=== PATIENT | female | born 1970 | race Caucasian/White ===

== ENCOUNTER 2022-09-18 12:53 | Outpatient (CLI) | payer MEDICAID, SELFPAY ==
[2022-09-18 10:15] LABS: Abs Immature Grans 0.01 10^3/uL (0.0-0.06); Absolute Basophil Count 0.03 10^3/uL (0.0-0.2); Absolute Eosinophil Count 0.19 10^3/uL (0.0-0.7); Absolute Lymphocyte Count 1.83 10^3/uL (1.2-3.4); Absolute Monocyte Count 0.47 10^3/uL (0.1-0.8); Absolute Neutrophil Count 2.97 10^3/uL (1.2-6.7); Basophils % 0.5; Eosinophils % 3.5; HCT 37.7 % (36.0-46.0); HGB 11.7 g/dL (11.2-15.7); Immature Grans % 0.2; Lymphocytes % 33.3; MCH 26.6 pg (27.0-33.0); MCV 86 fL (80-95); Monocytes % 8.5; Platelet Count 331 10^3/uL (130-400); RDW 15.9 % (11.7-14.6); RDW-SD 50.1 fL
[2022-09-18 11:00] LABS: ALT 29 U/L (14-59); AST 17 U/L (15-37); Alkaline Phosphatase 79 U/L (46-116); Anion Gap 11.9 mmol/L (3-11); BUN 12 mg/dL (7-18); Bilirubin, Total 0.3 mg/dL (0.2-1.0); CO2 23.1 mmol/L (21.0-32.0); CREATININE 0.8 mg/dL (0.55-1.02); Calcium 9.7 mg/dL (8.5-10.1); Chloride 105 mmol/L (98-107); Glucose 108 mg/dL (74-106); Magnesium 1.9 mg/dL (1.8-2.4); Sodium 140 mmol/L (136-145); Total Protein 7.6 g/dL (6.4-8.2)
== END 2022-09-18 12:54 | disposition home or self-care (01) ==
LOC: LBO 12:57
PROVIDERS: PCP Student in an Organized Health Care Education/Training Program; Visit Provider Student in an Organized Health Care Education/Training Program
DX: N28.9 Disorder of kidney and ureter, unspecified (principal); E87.8 Other disorders of electrolyte and fluid balance, not elsewhere classified; R03.0 Elevated blood-pressure reading, without diagnosis of hypertension; Z86.2 Personal history of diseases of the blood and blood-forming organs and certain disorders involving the immune mechanism; Z86.711 Personal history of pulmonary embolism; Z79.899 Other long term (current) drug therapy
CPT/HCPCS: 36415; 80053; 83735; 85025

== ENCOUNTER 2022-10-14 02:18 | Outpatient (CLI) | payer MEDICAID, SELFPAY ==
--- NOTE | 2022-10-14 15:18 | DI.US_ITS ---
APPROVED REPORT EXAM: Comprehensive 2D, Doppler, and color-flow Echocardiogram Patient Location: Out-Patient Teacher Hearing Impaired: Krystyna Do RDCS (AE) Indications: Evaluate for improvement post strain, PE, CAD Other Information Study Quality: Adequate Conclusion Normal left ventricular wall thickness and chamber size. Estimated ejection fraction is 60%. Wall m otion is normal Normal right ventricular size and systolic function Both atria are normal in size There is no structural or hemodynamically significant valvular disease Estimated right ventricular systolic pressure is 18 mmHg Wall motion Left Ventricle The left ventricle is normal size. The left ventricular systolic function is normal. The left ventric ular ejection fraction is within the normal range. There is normal left ventricular wall thickness. T here is normal LV segmental wall motion. There is no ventricular septal defect visualized. LVEF is 6 0%. Right Ventricle The right ventricle is normal size. The right ventricular systolic function is normal. The RVSP is 18 .3 mmHg. Atria The left atrium size is normal. The right atrium size is normal. The interatrial septum is intact wit h no evidence for an atrial septal defect. Aortic Valve The aortic valve is normal in structure. Aortic valve is trileaflet. There is no aortic valvular sten osis. No aortic regurgitation is present. Mitral Valve The mitral valve is normal in structure. No evidence of mitral valve stenosis. Trace mitral regurgita tion. Tricuspid Valve The tricuspid valve is normal in structure. There is no tricuspid valve stenosis. Trace to mild tricu spid regurgitation. Pulmonic Valve The pulmonary valve is normal in structure. There is no pulmonic valvular stenosis. There is no pulmo carmen valvular regurgitation. Great Vessels The aortic root is normal in size. The ascending aorta is normal in size. Aortic arch is normal in ca liber. IVC is normal in size and collapses >50% with inspiration. Pericardium There is no pericardial effusion. 2D Dimensions IVSD d PLAX 0.97 cm F: 0.6-1.0 LV Vol A2C d MOD 108.9 mL LVPW d PLAX 0.90 cm F: 0.6 - 1.0 LV Vol A4C d MOD 110.9 mL LVID d PLAX 4.94 cm F: 3.8 - 5.2 LA vol/ BSA A2C s A-L 14.3 mL/m2 LVDs 3.10 cm F: 2.2 - 3.5 LA vol/ BSA A4C s A-L 29.7 mL/m2 Ao Root d 2.84 cm F: 2.7 - 3.3 LA Vol/ BSA Biplane s A-L 23.4 mL/m2 Ao Asc Diam d 3.01 cm F: 2.3 - 3.1 LA Area A4C s MOD 20.47 cm2 LV EF Teichholz 66.9 % LA Area A2C s MOD 12.52 cm2 LVEF (Doyle's) 58.14 % F: 54 - 74 LV EF A4C MOD 59.1 % LV Volume 83.04 mL F: 46 - 106 LV EF A2C MOD 60.0 % LV Volume Index 41.10 mL/m2 F: 29 - 61 LV EF Biplane MOD 58.1 % LV Vol Biplane MOD 111.0 mL SV 64.55 mL FS 37.15 % SV Index 32.01 mL/m2 M-Mode TAPSE 2.32 cm (M/F) >1.7 LV Diastology MV E' medial 0.099 (>0.07 m/s) E/A Ratio 1.2 LV E/e MED 7.75 (<14) MV E Vmax 0.77 (0.4-1.3 m/s) MV E' lateral 0.110 (>0.1 m/s) MV A Vmax 0.65 (0.4-1.3 m/s) LV E/e LAT 6.90 (<14) MV E/A Ratio 1.13 MV E/E' medial 7.76 MV E/E' lateral 6.93 Aortic Valve LVOT Area 2.86 cm2 AoV Area Vmax 2.31 cm2 LVOT Vmax 0.88 m/s AoV Area/ BSA (Vmax) 1.15 cm2/m2 LVOT Mean Carlos. 0.58 m/s JAN Mean Carlos. 2.22 cm2 LVOT Peak Grad 3.1 mmHg JAN Mean Carlos. Index 1.10 cm2/m2 LVOT Mean Grad 1.6 mmHg LVOT VTI 0.194 m LVOT Diam s 1.90 cm AoV Vmax 1.09 m/s Velocity Ratio 0.81 AoV Mean Carlos. 0.75 m/s AoV Peak Grad 4.7 mmHg LVOT SV 55.46 mL AoV Mean Grad 2.5 mmHg AoV VTI 0.226 m AoV Area VTI 2.45 cm2 AoV Area/ BSA (VTI) 1.21 cm/m2 Mitral Valve MV DT 209 (160-240 msec) MV PHT 60 msec MV Area PHT 3.64 cm2 MV VTI 0.248 m MV Area VTI 2.23 (4.0-6.0 cm2) Pulmonary Valve PV Vmax 0.76 (0.5-1.5 m/s) RVOT Peak Gr. 1.52 mmHg PV Peak Grad 2.3 mmHg RVOT Mean Gr. 0.75 mmHg PV Mean Grad 1.3 mmHg RVOT VTI 0.141 m PV VTI 0.193 m RVOT Vmax 0.62 m/s Tricuspid Valve TR Peak Grad 15.2 mmHg TR Vmax 1.96 m/s RA Pressure 3.00 mmHg RVSP (TR) 18.3 mmHg
== END 2022-10-14 02:38 ==
LOC: DI 02:18
PROVIDERS: PCP Student in an Organized Health Care Education/Training Program; Visit Provider Student in an Organized Health Care Education/Training Program
DX: I25.10 Atherosclerotic heart disease of native coronary artery without angina pectoris (principal); I51.89 Other ill-defined heart diseases; Z86.2 Personal history of diseases of the blood and blood-forming organs and certain disorders involving the immune mechanism; Z86.711 Personal history of pulmonary embolism
CPT/HCPCS: 93306

== ENCOUNTER 2023-04-30 18:19 | Emergency (ER) | payer BC, MEDICAID, SELFPAY ==
[2023-04-30] VITALS (57 sets, daily range): BP systolic 94–153; BP diastolic 24–111; PULSE 74–90; RESP 16–18; TEMP 36.1–36.7; O2SAT 95–100
[2023-04-30 19:42] LABS: Abs Immature Grans 0.04 10^3/uL (0.0-0.06); Absolute Basophil Count 0.04 10^3/uL (0.0-0.2); Absolute Eosinophil Count 0.14 10^3/uL (0.0-0.7); Absolute Lymphocyte Count 2.11 10^3/uL (1.2-3.4); Absolute Monocyte Count 0.51 10^3/uL (0.1-0.8); Absolute Neutrophil Count 5.34 10^3/uL (1.2-6.7); Basophils % 0.5; Eosinophils % 1.7; HCT 22.3 % (36.0-46.0); Immature Grans % 0.5; Lymphocytes % 25.8; MCH 20.1 pg (27.0-33.0); MCHC 26.5 % (32.0-36.0); MCV 76 fL (80-95); MPV 9.8 fL (8.0-11.0); Monocytes % 6.2; Neutrophils % 65.3; Platelet Count 638 10^3/uL (130-400); RBC 2.94 10^6/uL (3.93-5.22); RDW 24.7 % (11.7-14.6); RDW-SD 65.3 fL; WBC 8.18 10^3/uL (4.4-10.8)
[2023-04-30 19:51] LABS: HGB 5.9 g/dL (11.2-15.7)
[2023-04-30 19:55] LABS: Anisocytosis 2+
[2023-04-30 19:56] LABS: ALT 14 U/L (14-59); AST 8 U/L (15-37); Albumin 3.7 g/dL (3.4-5.0); Alkaline Phosphatase 83 U/L (46-116); Anion Gap 13.2 mmol/L (3-11); BUN 7 mg/dL (7-18); Bilirubin, Total 0.3 mg/dL (0.2-1.0); CO2 22.8 mmol/L (21.0-32.0); CREATININE 0.9 mg/dL (0.55-1.02); Calcium 9.2 mg/dL (8.5-10.1); Chloride 103 mmol/L (98-107); Estimated GFR 76.44 (mL/min/1.73m2); Glucose 97 mg/dL (74-106); Hypochromasia 3+; Microcytosis 3+; Potassium 3.6 mmol/L (3.5-5.1); Sodium 139 mmol/L (136-145); Total Protein 7.3 g/dL (6.4-8.2)
[2023-04-30] MEDS: Acetaminophen 325 MG TAB 650 MG PO (20:48)
[2023-04-30] MEDS: Ondansetron 4 MG/2 ML VIAL IVP (20:52)
[2023-04-30] MEDS: Normal Saline 1,000 ML 1000 ML IV (20:53)
--- NOTE | 2023-04-30 22:09 | SCONE_ITS ---
Date of service: 04/30/23 Time of Service: 22:09 Assessment and Plan Assessment and plan (1) Acute blood loss anemia: Status: Acute Assessment and plan: I agree with the transfusion of packed red blood products in an effort to improve her fatigue and dyspnea. Based on the exam, the severity of the h emoglobin, and the stability of her vital signs, I suspect this anemia is quite chronic in nature. Assuming she tolerates the transfusion fine, we can make arrangements for more urgent colonoscopy this week. Alternatively, if she continues to have signs of symptomatic anemia and ongoing blood loss, then we could reconsider admission to the hospital, holding her apixaban, bridging with heparinoid product and prepping for colonoscopy in a more urgent fashion. I will have my office make arrangements to expedite her colonoscopy if she is discharged home today. History of Present Illness History of Present Illness Chief Complaint: Hematochezia Narrative: Rahul is 53 years old, and she comes to the emergency department today with anemia. This was detected because of increasing fatigue, and exertional dyspnea. This is also in the setting of hematochezia. In fact, she has been seen in our office in an effort to schedule outpatient colonoscopy. Her past medical history is complicated by massive pulmonary embolism requiring pulmonary artery embolectomy. The cause of her thrombosis is uncertain. She has been treated with therapeutic anticoagulation using apixaban, which she took as most recently as this morning. Although her pulmonary embolism occurred while she was living in [place], she is currently seen in consultation by the [facility] team. She tells me she recently underwent a CAT scan that demonstrated no evidence of any deep vein thrombosis or pulmonary embolism. With regards to her exertional dyspnea, she tells me has been most notable over the past week or so. She has been having difficulty maintaining breathfullness even while doing tasks as simple as grocery shopping. PFSH All Active Problems Acute blood loss anemia (Acute) Hx pulmonary embolism (Chronic) post embolectomy (possible saddle per pt description) Hx of iron deficiency anemia (Acute) History of DVT (deep vein thrombosis) (Acute) Anticoagulated (Acute) Family History Maternal Grandfather Diabetes Maternal Grandmother Diabetes Mother Diabetes Social History Smoking/Tobacco Use Status: Never Smoking risk assessment performed?: Yes Alcohol Intake: never Drug use: Never Substance use type: does not use Household members: family Housing: apartment Number of Children: 2 number of grandchildren: 1 Communication Needs: Corrective Lenses Education Level: high school current occupation: [employer] in [place] What is your relationship status?: How often do you get together with friends or relatives?: three or more times per week Panel score (0-1 are the most socially isolated patients): 1 What type of physical activity do you participate in: none Working smoke detector in home: Yes Fire extinguisher in home: Yes Carbon monox detector in home: Yes Do you feel safe at home: Yes Do you feel safe in your relationship?: Yes Exam GI Other: Her abdomen is soft, nontender nondistended. She has external hemorrhoids with no stigmata of recent bleeding at least externally. Internal examination is limited by patient comfort. There is no bright red blood per anus at this time. Results Last Vital Signs Temp 98.1 F 04/30/23 20:53 Pulse 90 04/30/23 20:53 Resp 18 04/30/23 20:53 BP 122/65 04/30/23 20:53 Pulse Ox 98 04/30/23 20:53 Labs 04/30/23 19:30 04/30/23 19:30 Labs: Laboratory Results - last 24 hr 04/30/23 04/30/23 04/30/23 19:30 19:30 19:30 WBC 8.18 RBC 2.94 L Hgb 5.9 L* Hct 22.3 L MCV 76 L MCH 20.1 L MCHC 26.5 L RDW 24.7 H Plt Count 638 H MPV 9.8 Immature Gran % 0.5 Neutrophils % 65.3 Lymphocytes % 25.8 Monocytes % 6.2 Eosinophils % 1.7 Basophils % 0.5 Nucleated RBC % 0.0 Absolute Neutrophils 5.34 Absolute Lymphocytes 2.11 Absolute Monocytes 0.51 Absolute Eosinophils 0.14 Absolute Basophils 0.04 RBC Morphology See Below Hypochromasia 3+ Anisocytosis 2+ Microcytosis 3+ Sodium 139 Potassium 3.6 Chloride 103 Carbon Dioxide 22.8 Anion Gap 13.2 H BUN 7 Creatinine 0.9 Est GFR (CKD-EPI 2020) 76.44 Glucose 97 Calcium 9.2 Total Bilirubin 0.3 AST 8 L ALT 14 Alkaline Phosphatase 83 Total Protein 7.3 Albumin 3.7 Patient ABO/Rh O Positive Antibody Screen NEGATIVE Crossmatch See Detail
--- NOTE | 2023-04-30 22:10 | W.ED.GENAD ---
Discharge Plan Disposition Patient Disposition: Home Condition: Stable Discharge Details Clinical Impression: Acute blood loss anemia Primary Care Provider: Rachel Greene ED Provider: Mady Molina Home Meds and New Rx's Prescriptions: Continued bisacodyl [Dulcolax (bisacodyl)] 5 mg tablet,delayed release (DR/EC) 5 mg PO ONCE Qty: 4 0RF Rx Instructions: Take per colonoscopy instructions provided by ordering providers office polyethylene glycol 3350 17 gram/dose powder 17 g PO ONCE Qty: 238 0RF Rx Instructions: Take per colonoscopy instructions provided by ordering providers office blood builder iron 2 tab PO BID OTC FLuid Pill 1 tab PO DAILY PRN (Reason: Edema) fexofenadine [Amarilis Allergy] 60 mg tablet 60 mg PO Q12H PRN montelukast [Singulair] 10 mg tablet 10 mg PO DAILY Qty: 90 3RF albuterol sulfate [Ventolin HFA] 90 mcg/actuation HFA aerosol inhaler 2 puff inhalation Q6H PRN (Reason: shortness of breath or wheezing) Qty: 8.5 4RF famotidine 20 mg tablet 20 mg PO BID Qty: 60 3RF Rx Instructions: Trial H2 Blkr for gastritis Held Eliquis 5 mg tablet 5 mg PO BID Qty: 180 4RF Hold Instructions: discuss with outpatient team Discharge Instructions Instructions: Rectal Bleeding (ED), Anemia (ED) Additional Instructions: push fluids to stay well hydrated hold eliquis until discussed at your follow up appointment Referrals: Anuel Keita MD [ [facility] STAFF PHYSICIAN] - Discharge Data Discharge Date/Time-TO BE ENTERED AT DEPARTURE: 05/01/23 00:19 Medical Decision Making This is a 53-year-old woman with history of hemorrhoids fully anticoagulated on apixaban who presents after experiencing 3 weeks of bright red blood with stooling. She is now symptomatic. Was seen by her primary care provider and sent here for evaluation of a hemoglobin of 5.9. Hemodynamically she is stable establish IV give 1 L of normal saline type and cross and plan for 2 units of packed red blood cells. She had no stools here remained hemodynamically stable I did contact Dr. Keita who did review the case and evaluate the patient. She is deemed safe for discharge and will follow-up outpatient with his office on Wednesday for school. She was advised to return sooner for new or worsening symptoms. She tolerated blood transfusion without any difficulty or adverse reaction. She was advised to hold her apixaban until follow-up Medical Records Medical records reviewed: Yes I reviewed the patient's medical records. Lab Data Lab results reviewed: Yes I reviewed the patient's lab results. Lab results narrative: lab Laboratory Results - last 24 hr 04/30/23 04/30/23 04/30/23 19:30 19:30 19:30 WBC 8.18 RBC 2.94 L Hgb 5.9 L* Hct 22.3 L MCV 76 L MCH 20.1 L MCHC 26.5 L RDW 24.7 H Plt Count 638 H MPV 9.8 Immature Gran % 0.5 Neutrophils % 65.3 Lymphocytes % 25.8 Monocytes % 6.2 Eosinophils % 1.7 Basophils % 0.5 Nucleated RBC % 0.0 Absolute Neutrophils 5.34 Absolute Lymphocytes 2.11 Absolute Monocytes 0.51 Absolute Eosinophils 0.14 Absolute Basophils 0.04 RBC Morphology See Below Hypochromasia 3+ Anisocytosis 2+ Microcytosis 3+ Sodium 139 Potassium 3.6 Chloride 103 Carbon Dioxide 22.8 Anion Gap 13.2 H BUN 7 Creatinine 0.9 Est GFR (CKD-EPI 2020) 76.44 Glucose 97 Calcium 9.2 Total Bilirubin 0.3 AST 8 L ALT 14 Alkaline Phosphatase 83 Total Protein 7.3 Albumin 3.7 Patient ABO/Rh O Positive Antibody Screen NEGATIVE Crossmatch See Detail HPI General Mode of arrival: ambulatory. Date/Time Provider Initiated Documentation: 04/30/23 18:50. Limitations to Documentation: no limitations. Information obtained by: patient. HPI Narrative: sent to ED by pcp for acute blood loss anemia with hemoglobin of 5.9. noted bright red blood with stooling. She takes apixaban for history of pulmonary embolism. She reports that her bleeding only occurs with stooling stooling has been brown in color. States she has had hemorrhoidal bleeding in the past asked. The symptoms have been ongoing for 3 weeks now. Related Data Home Medications Medication Instructions Recorded Confirmed fexofenadine 60 mg tablet (Amarilis 60 mg PO Q12H PRN 10/20/22 04/30/23 Allergy) montelukast 10 mg tablet 10 mg PO DAILY #90 tabs 10/20/22 04/30/23 (Singulair) albuterol sulfate 90 mcg/actuation 2 puff inhalation Q6H PRN 01/06/23 04/30/23 aerosol inhaler (Ventolin HFA) shortness of breath or wheezing #8.5 grams apixaban 5 mg tablet (Eliquis) 5 mg PO BID #180 tabs 01/06/23 04/30/23 famotidine 20 mg tablet 20 mg PO BID #60 tabs 03/01/23 04/30/23 bisacodyl 5 mg tablet,delayed 5 mg PO ONCE #4 tabs 04/01/23 04/30/23 release (Dulcolax (bisacodyl)) polyethylene glycol 3350 17 17 g PO ONCE #238 grams 04/01/23 04/30/23 gram/dose oral powder OTC FLuid Pill 1 tab PO DAILY PRN Edema 04/27/23 04/30/23 blood builder iron 2 tab PO BID 04/27/23 04/30/23 Previous Rx's Medication Instructions Recorded montelukast 10 mg tablet 10 mg PO DAILY #90 tabs 10/20/22 (Singulair) albuterol sulfate 90 mcg/actuation 2 puff inhalation Q6H PRN 01/06/23 aerosol inhaler (Ventolin HFA) shortness of breath or wheezing #8.5 grams apixaban 5 mg tablet (Eliquis) 5 mg PO BID #180 tabs 01/06/23 famotidine 20 mg tablet 20 mg PO BID #60 tabs 03/01/23 bisacodyl 5 mg tablet,delayed 5 mg PO ONCE #4 tabs 04/01/23 release (Dulcolax (bisacodyl)) polyethylene glycol 3350 17 17 g PO ONCE #238 grams 04/01/23 gram/dose oral powder Allergies Allergy/AdvReac Type Severity Reaction Status Date / Time rubber, unspecified Allergy Intermediate blotchy Verified 04/30/23 20:17 skin latex Allergy Unknown hives Verified 04/30/23 20:17 EKG Tabs Allergy Intermediate Skin Rash Uncoded 04/30/23 20:17 seasonal allergies AdvReac Intermediate sinus Uncoded 04/30/23 20:17 congestions, ear problems General Stated Complaint: GI Bleed QIANA: 3 Review of Systems All systems reviewed & are unremarkable except as noted in HPI and below PFSH All Active Problems Acute blood loss anemia (Acute) Hx pulmonary embolism (Chronic) post embolectomy (possible saddle per pt description) Hx of iron deficiency anemia (Acute) History of DVT (deep vein thrombosis) (Acute) Anticoagulated (Acute) Family History Maternal Grandfather Diabetes Maternal Grandmother Diabetes Mother Diabetes Social History Smoking/Tobacco Use Status: Never Smoking risk assessment performed?: Yes Alcohol Intake: never Drug use: Never Substance use type: does not use Household members: family Housing: apartment Number of Children: 2 number of grandchildren: 1 Communication Needs: Corrective Lenses Education Level: high school current occupation: [employer] in [place] What is your relationship status?: How often do you get together with friends or relatives?: three or more times per week Panel score (0-1 are the most socially isolated patients): 1 What type of physical activity do you participate in: none Working smoke detector in home: Yes Fire extinguisher in home: Yes Carbon monox detector in home: Yes Do you feel safe at home: Yes Do you feel safe in your relationship?: Yes Exam Const General: cooperative, comfortable and no acute distress Nutritional Appearance: overweight Orientation: alert, awake and oriented x3 HENMT Head: normal to inspection, normocephalic and atraumatic Face and sinus: normal facial exam Eyes General: appearance normal, both eyes and all related structures GI Inspection: normal to inspection and non-distended Palpation: soft and nontender Auscultation: normal bowel sounds Skin General skin exam: no rashes or lesions noted and pallor Neuro General: patient alert, patient awake, patient oriented x3, tone normal, moves all extremities and no focal motor deficits Extrem General: normal to inspection, full ROM and no pedal edema Course Vital Signs Vital signs: Vital Signs Temperature 36.6 C 04/30/23 20:08 Pulse 87 04/30/23 20:08 Respiratory Rate 16 04/30/23 20:08 Blood Pressure 123/72 04/30/23 20:08 Pulse Oximetry 95 04/30/23 20:08 Temperature 36.7 C 04/30/23 20:53 Temperature Source Oral 08/25/23 20:08 Pulse 90 04/30/23 20:53 Respiratory Rate 18 04/30/23 20:53 Respiratory Effort Normal, Non-Labored 04/30/23 20:15 Blood Pressure 122/65 04/30/23 20:53 Blood Pressure Position Supine 04/30/23 20:08 Pulse Oximetry 98 04/30/23 20:53 Oxygen Delivery Method Room Air 04/30/23 20:53 Oxygen Flow Rate 0 04/30/23 20:53 Pain Level 0 04/30/23 20:08 Lab/Test Results Lab/Test Results: Laboratory Tests Range/Units 04/30/23 04/30/23 04/30/23 19:30 19:30 19:30 WBC (4.4-10.8) 10^3/uL 8.18 RBC (3.93-5.22) 10^6/uL 2.94 L Hgb (11.2-15.7) g/dL 5.9 L* Hct (36.0-46.0) % 22.3 L MCV (80-95) fL 76 L MCH (27.0-33.0) pg 20.1 L MCHC (32.0-36.0) % 26.5 L RDW (11.7-14.6) % 24.7 H Plt Count (130-400) 10^3/uL 638 H MPV (8.0-11.0) fL 9.8 Immature Gran % 0.5 Neutrophils % 65.3 Lymphocytes % 25.8 Monocytes % 6.2 Eosinophils % 1.7 Basophils % 0.5 Nucleated RBC % (0.0-0.3) % 0.0 Absolute Neutrophils (1.2-6.7) 10^3/uL 5.34 Absolute Lymphocytes (1.2-3.4) 10^3/uL 2.11 Absolute Monocytes (0.1-0.8) 10^3/uL 0.51 Absolute Eosinophils (0.0-0.7) 10^3/uL 0.14 Absolute Basophils (0.0-0.2) 10^3/uL 0.04 RBC Morphology See Below Hypochromasia 3+ Anisocytosis 2+ Microcytosis 3+ Sodium (136-145) mmol/L 139 Potassium (3.5-5.1) mmol/L 3.6 Chloride (98-107) mmol/L 103 Carbon Dioxide (21.0-32.0) mmol/L 22.8 Anion Gap (3-11) mmol/L 13.2 H BUN (7-18) mg/dL 7 Creatinine (0.55-1.02) mg/dL 0.9 Est GFR (CKD-EPI 2020) (mL/min/1.73m2) 76.44 Glucose (74-106) mg/dL 97 Calcium (8.5-10.1) mg/dL 9.2 Total Bilirubin (0.2-1.0) mg/dL 0.3 AST (15-37) U/L 8 L ALT (14-59) U/L 14 Alkaline Phosphatase (46-116) U/L 83 Total Protein (6.4-8.2) g/dL 7.3 Albumin (3.4-5.0) g/dL 3.7 Patient ABO/Rh O Positive Antibody Screen NEGATIVE Crossmatch See Detail
[2023-04-30] MEDS: Furosemide 20 MG/2 ML VIAL IVP (22:15)
[2023-05-01 00:07] VITALS: BP 114/67; PULSE 80
[2023-05-01 00:10] VITALS: BP 114/67; PULSE 81; RESP 18; TEMP 36.9; O2SAT 99
[2023-05-01 00:14] VITALS: BP 103/40; PULSE 81; RESP 18; TEMP 36.9; O2SAT 97
[2023-05-01 00:15] VITALS: BP 114/67; PULSE 81; RESP 18; O2SAT 99
== END 2023-05-01 00:19 | disposition home or self-care (01) ==
PROVIDERS: Emergency Provider Nurse Practitioner Acute Care; PCP Nurse Practitioner
DX: K92.1 Melena (principal); D62 Acute posthemorrhagic anemia
CPT/HCPCS: 36430; 80053; 86850; 86900; 86901; 86920; 96361; 96374; 96375; 99284; 85025; J1941; J2405; P9016

== ENCOUNTER 2023-05-06 10:04 | Day surgery (SDC) | payer BC, MEDICAID, SELFPAY ==
--- NOTE | 2023-05-05 23:06 | W.PM.DSUDISC ---
Date of service: 05/06/23 Time of Service: 12:24 Discharge Plan Disposition Patient Disposition: Home Condition: Good Discharge Details Reason For Visit: Colonoscopy Attending Provider: Anuel Keita Primary Care Provider: Rachel Greene Home Meds and New Rx's Prescriptions: Continued blood builder iron 2 tab PO BID OTC FLuid Pill 1 tab PO DAILY PRN (Reason: Edema) fexofenadine [Amarilis Allergy] 60 mg tablet 60 mg PO Q12H PRN montelukast [Singulair] 10 mg tablet 10 mg PO DAILY Qty: 90 3RF Eliquis 5 mg tablet 5 mg PO BID Qty: 180 4RF Hold Instructions: discuss with outpatient team albuterol sulfate [Ventolin HFA] 90 mcg/actuation HFA aerosol inhaler 2 puff inhalation Q6H PRN (Reason: shortness of breath or wheezing) Qty: 8.5 4RF famotidine 20 mg tablet 20 mg PO BID Qty: 60 3RF Rx Instructions: Trial H2 Blkr for gastritis Discontinued bisacodyl [Dulcolax (bisacodyl)] 5 mg tablet,delayed release (DR/EC) 5 mg PO ONCE Qty: 4 0RF Rx Instructions: Take per colonoscopy instructions provided by ordering providers office polyethylene glycol 3350 17 gram/dose powder 17 g PO ONCE Qty: 238 0RF Rx Instructions: Take per colonoscopy instructions provided by ordering providers office Discharge Instructions Instructions: Hemorrhoids (GEN), Diverticulosis (DC), Diverticulosis Diet (GEN) Additional Instructions: Rahul, we were able to complete your colonoscopy today without any difficulty at all. You do have some internal hemorrhoids. None have evidence of recent bleeding. You also have a fair amount of diverticular disease. Diverticula are weak spots in the colon wall that typically accumulate with age. Both hemorrhoids, and diverticulosis, can be sources of bleeding in the large intestine. At the current time, there is no signs of any active bleeding, and the management of this may be a bit challenging because of your need for anticoagulation. For now, I would start with a basic intervention of increasing her dietary fiber. Patient's with both of these conditions should be eating over 30 g of dietary fiber per day. He should pay careful attention to the food labels, and try to track how many grams of fiber you are consuming. If you find it challenging to meet this with basic dietary changes, you can always supplement your diet with [id number] psyllium, or other forms of an digestible fiber. Psyllium is the active ingredient in medication such as Metamucil and Fiberall. This will help soften the stools, and make it easier for the large intestine to pass them through causing less irritation to diverticula and hemorrhoids. If you continue to have signs of active bleeding, we can always schedule you for an exam under anesthesia, and treatment of the hemorrhoids. I would encourage you to follow-up with Rachel Greene for another check of your blood counts at some point in the next few weeks. 1. If tolerated, consume a soft, low fiber diet for 1-2 days. 2[address] Do not drive, drink alcohol, operate machinery, make critical decisions, or do activities that require coordination or balance for 24 hours. 3. Because air was put into your colon during the procedure, expelling air from your rectum (passing gas or farting) is normal. 4. You may not have a bowel movement for 1-3 days because of the colonoscopy prep. This is normal. 5. Go directly to the emergency room if you notice any of the following: Develop chills (warm to touch), or if you have a thermometer and your temperature is above 101 Difficulty breathing or difficultly swallowing Persistent vomiting Severe abdominal pain, other than gas cramps Severe chest pain Black, tarry stools Any bleeding ? exceeding one tablespoon 6. Call your physician if the site where your intravenous was started becomes red, swollen, painful, and warm to touch. 7. Your physician has reviewed your pre-procedure medications. Please continue to take those medications as previously ordered. You will be given specific information/education regarding any changes to your medications before leaving. Activity:: Activity as Tolerated Diet:: As Tolerated Discharge Orders Discharge Orders: Discharge Order (Routine); Ordered 05/05/23 Ordered By: Anuel Keita DS: Diagnosis Discharge Diagnosis (1) Acute blood loss anemia: Status: Acute Asessment and Plan: Colonoscopy demonstrated diverticulosis as well as internal hemorrhoids. Follow-up with primary care physician for trending of hemoglobin
--- NOTE | 2023-05-05 23:07 | W.COLOREPORT ---
Date of service: 05/06/23 Time of Service: 12:29 Colonoscopy Report Date of procedure: 05/06/23 Pre-op diagnosis general: Diagnostic colonoscopy Post-op diagnosis procedure note: other (Diverticulosis, internal hemorrhoids) Procedure: Colonoscopy Surgeon: Anuel Keita Anesthesia Type: General:No Airway Estimated blood loss (mL): 0 Pathology: none sent Complications: None Disposition: same day Indications: Rahul is a 53-year-old woman with anemia. Prep: Miralax/Dulcolax Procedure Start Time: 11:54 Procedure End Time: 12:08 Retraction Time: 8 Findings: Grade 1 internal hemorrhoids with no signs of active bleeding; diverticulosis extending from about 25 cm to about 60 cm Procedure Description: After the induction of monitored anesthetic care, and with the patient in left lateral decubitus position, I began by performing an external anorectal exam.? Perineum and skin were normal, as was the anal verge.? External anorectal exam was normal.? Next, I performed a digital rectal exam.? I did not appreciate any abnormal findings.? Next, I advanced a colonoscope into the rectal vault.? I performed retroflexion.? There are internal hemorrhoids. None have any stigmata of recent bleeding.? Using insufflation, I then advanced the colonoscope beyond the rectal folds and into the sigmoid colon before advancing towards the cecum.? There was extensive sigmoid diverticulosis, extending from about 25 cm from the anus to about 60 cm from the anus. The quality of the prep was excellent.? The scope was noted to be in the cecum by identification of the ileocecal valve and appendiceal orifice.? I then began withdrawing the colonoscope using repeated irrigation as necessary for full evaluation of the colonic mucosa. ?Once the scope was withdrawn to the level of the rectum, great care was taken to examine portions of the rectal folds.? In my opinion, the nature of the internal hemorrhoids did not warrant banding at this time. Finally, the scope was withdrawn and the patient was brought to the same-day surgery recovery unit as the anesthetic wore off. ?The findings and instructions were shared with the patient prior to discharge.
--- NOTE | 2023-05-06 06:27 | W.ANESPRE ---
General Info Date of Service Date Performed: 05/06/23 Height: 5 ft Weight: 107.955 kg Body Mass Index (BMI): 46.5 Surgical Procedure: Operation Date: 05/06/23 14:20 Proposed Procedure Side Surgeon jovanni Keita MD Meds Allergies and Home Medications Allergies Allergy/AdvReac Type Severity Reaction Status Date / Time rubber, unspecified Allergy Intermediate blotchy Verified 05/06/23 10:23 skin latex Allergy Unknown hives Verified 05/06/23 10:23 EKG Tabs Allergy Intermediate Skin Rash Uncoded 05/06/23 10:23 seasonal allergies AdvReac Intermediate sinus Uncoded 05/06/23 10:23 congestions, ear problems Home Medication Medication Instructions Recorded fexofenadine 60 mg tablet (Amarilis 60 mg PO Q12H PRN 10/20/22 Allergy) montelukast 10 mg tablet 10 mg PO DAILY #90 tabs 10/20/22 (Singulair) albuterol sulfate 90 mcg/actuation 2 puff inhalation Q6H PRN 01/06/23 aerosol inhaler (Ventolin HFA) shortness of breath or wheezing #8.5 grams apixaban 5 mg tablet (Eliquis) 5 mg PO BID #180 tabs 01/06/23 famotidine 20 mg tablet 20 mg PO BID #60 tabs 03/01/23 OTC FLuid Pill 1 tab PO DAILY PRN Edema 04/27/23 blood builder iron 2 tab PO BID 04/27/23 Current Visit Medications: Current Medications Generic Name Dose Route Start Last Admin Trade Name Freq PRN Reason Stop Dose Admin Hyoscyamine Sulfate 0.125 mg 05/05/23 23:08 Hyoscyamine 0.125 Mg Sl/Oral/Chew SL 06/04/23 23:07 DIRECTED PRN Ringer's Solution 1,000 mls @ 80 mls/hr 05/06/23 06:00 IV 06/04/23 23:59 INFUSION [facility] IV Miscellaneous Supplies 1 each 05/06/23 06:00 Iv Access IV 06/04/23 23:59 DIRECTED [facility] Ondansetron HCl 4 mg 05/05/23 23:08 Ondansetron 4 Mg/2 Ml Vial IVP 06/04/23 23:07 Q4H PRN PRN Nausea / Vomiting Sodium Chloride 0 ml 05/06/23 06:00 Normal Saline Flush 10 Ml Syr IV 06/04/23 23:59 PRN PRN Sodium Chloride 0 ml 05/06/23 06:00 Normal Saline 10 Ml Vial IJ 06/04/23 23:59 DIRECTED PRN Sterile Water 0 ml 05/06/23 06:00 Water,Injection,Sterile 10 Ml Vial IJ 06/04/23 23:59 DIRECTED PRN PFSH Active Problems Active Problems: Problem Status Onset Code Acute blood loss anemia D62 Hx pulmonary embolism Z86.711 Hx of iron deficiency anemia Z86.2 History of DVT (deep vein thrombosis) Z86.718 Anticoagulated Z79.01 Surgical History Surgical History Hx laparoscopic cholecystectomy Hx of colonoscopy Tobacco Smoking/Tobacco Use Status: Never Alcohol Alcohol Intake: never Substance Use Substance use: Never Substance use type: does not use Vital Signs and Lab Results Vital Signs Most Recent Vital Signs in EMR: Temp Pulse Resp BP Pulse Ox 36.8 C 74 18 132/64 98 05/06/23 10:14 05/06/23 10:14 05/06/23 10:14 05/06/23 10:14 05/06/23 10:14 Lab Results Blood Type / Crossmatch: Patient ABO/Rh O Positive 04/30/23 Antibody Screen NEGATIVE 04/30/23 Crossmatch See Detail 04/30/23 Complete Blood Count: White Blood Count 8.18 10^3/uL (4.4-10.8) 04/30/23 19:30 Red Blood Count 2.94 10^6/uL (3.93-5.22) L 04/30/23 19:30 Hemoglobin 5.9 g/dL (11.2-15.7) L* 04/30/23 19:30 Hematocrit 22.3 % (36.0-46.0) L 04/30/23 19:30 Platelet Count 638 10^3/uL (130-400) H 04/30/23 19:30 Complete Metabolic Panel: Sodium 139 mmol/L (136-145) 04/30/23 19:30 Potassium 3.6 mmol/L (3.5-5.1) 04/30/23 19:30 Chloride 103 mmol/L (98-107) 04/30/23 19:30 Carbon Dioxide 22.8 mmol/L (21.0-32.0) 04/30/23 19:30 BUN 7 mg/dL (7-18) 04/30/23 19:30 Creatinine 0.9 mg/dL (0.55-1.02) 04/30/23 19:30 Est GFR (CKD-EPI 2020) 76.44 (mL/min/1.73m2) 04/30/23 19:30 Calcium 9.2 mg/dL (8.5-10.1) 04/30/23 19:30 Albumin 3.7 g/dL (3.4-5.0) 04/30/23 19:30 Glucose 97 mg/dL (74-106) 04/30/23 19:30 Liver Function Panel: Alanine Aminotransferase (ALT/SGPT) 14 U/L (14-59) 04/30/23 19:30 Aspartate Amino Transf (AST/SGOT) 8 U/L (15-37) L 04/30/23 19:30 Coagulation Panel: No Data to Display Cardiac Panel: No Data to Display Arterial Blood Gas: No Data to Display Venous Blood Gas: No Data to Display Pancreas Panel: No Data to Display Thyroid Panel: Thyroid Stimulating Hormone (TSH) 1.46 uIU/mL 04/30/23 16:25 Infectious Disease: No Data to Display Blood Cultures: No Data to Display Toxicology Panel: No Data to Display Panel: No Data to Display Imaging and Studies Imaging and Studies Study information below may be from another EMR and interpreted by another provider. Please see original notes in EMR for more complete details. Echocardiogram Summary: 10/29: LVEF 60%, RVSP 18 mmhg, no sig valvular dz. Anesthesia Assessment and Plan Anesthesia History Personal History: No History of Anesthesia Complications Family History: No Family History of Anesthesia Complications Exercise Tolerance Exercise Tolerance: Metabolic Equivalents>4 Cardiac & Pulmonary Exam Cardiac Exam: Normal S1/S2 Heart Sounds Pulmonary Exam: Clear Bilateral Breath Sounds Implantable Cardiac Device Does patient have a Pacemaker or an ICD?: No Airway Exam Known Difficult Airway: No Mallampati Class: 4 Mouth Opening: Narrow (< 3cm) Thyromental Distance: Greater than 3 cm Neck Range of Motion: Full ROM Neck Circumference: Thick Teeth Condition: Normal Dentition ASA Classification ASA Score: ASA 3 Emergency Case?: No NPO Status NPO Status: NPO Clears >2 hours, Solids >8 hours Status Status: Not Relevant due to Medical History Anesthesia Plan Resuscitation Status: Full Code Anesthesia Technique: General Anesthesia Airway Planned: Natural Airway Monitors Used: Standard Monitors Preoperative Comments:: 53 yo female with rectal bleeding for colo. Sig PMHx: PE/DVT (day after a flight, apr 2022, embolectomy, eliquis - okayed by [facility] to be held for 48 hrs), asthma (albut rescue 2 x week), MARY (snores), TEJEDA,
[2023-05-06 10:14] VITALS: BP 132/64; PULSE 74; RESP 18; TEMP 36.8; O2SAT 98
[2023-05-06] MEDS: Lactated Ringers 1,000 ML 80 ML IV (10:32)
[2023-05-06 11:16] VITALS: BMI 46.5
[2023-05-06 12:14] VITALS: BP 96/55; PULSE 77; RESP 14; TEMP 36.4; O2SAT 99
--- NOTE | 2023-05-06 12:22 | W.ANESPOSTOP ---
Postoperative Evaluation Date, Time and Location Date Performed: 05/06/23 Time Performed: 12:22 Patient Location: Day Surgery Unit Vital Signs Most Recent Imported Vital Signs: Most Recent Vital Signs Temp Pulse Resp BP Pulse Ox 36.4 C L 77 14 96/55 L 99 05/06/23 12:14 05/06/23 12:14 05/06/23 12:14 05/06/23 12:14 05/06/23 12:14 Pain Score Most Recent Pain Score: Most Recent Pain Score Pain Level 0 05/06/23 12:14 Assessment Mental Status: Awake (Alert & Oriented to Patient Baseline) Airway and Respiratory Function: Patent airway with normal (patient baseline) respiratory exam Cardiovascular Function: Hemodynamically Stable Hydration Status: Adequately Hydrated Nausea & Vomiting: No Nausea or Vomiting Pain: Pt. Denies Any Pain Peripheral Nerve Block: Patient did not receive a nerve block
[2023-05-06 12:44] VITALS: BP 111/53; PULSE 67; RESP 17; TEMP 36.6; O2SAT 97
== END 2023-05-06 13:10 | disposition home or self-care (01) ==
PROVIDERS: PCP Nurse Practitioner; Visit Provider Surgery
PROC: 0DJD8ZZ Inspection of Lower Intestinal Tract, Via Natural or Artificial Opening Endoscopic (ICD-10-PCS; CPT 45378; principal; 2023-05-06 11:30)
DX: Z12.11 Encounter for screening for malignant neoplasm of colon (principal); K64.8 Other hemorrhoids; K57.30 Diverticulosis of large intestine without perforation or abscess without bleeding
CPT/HCPCS: 45378

== ENCOUNTER 2023-06-28 14:07 | Outpatient (CLI) | payer BC, MEDICAID, SELFPAY ==
[2023-06-28 12:53] LABS: HCT 31.4 % (36.0-46.0); HGB 9.1 g/dL (11.2-15.7)
[2023-06-28 13:30] LABS: Ferritin 12 ng/mL (8-252)
[2023-06-28 14:05] LABS: Iron 12 ug/dL (50-170); Total Iron Binding Capacity 455 ug/dL (250-450); Transferrin Sat 3 % (15-50)
== END 2023-06-28 14:08 | disposition home or self-care (01) ==
PROVIDERS: PCP Nurse Practitioner; Visit Provider Surgery
DX: Z86.2 Personal history of diseases of the blood and blood-forming organs and certain disorders involving the immune mechanism (principal); D62 Acute posthemorrhagic anemia
CPT/HCPCS: 36415; 82728; 83540; 83550; 85014; 85018

== ENCOUNTER 2023-07-05 03:01 | Outpatient (RCR) | payer BC, MEDICAID, SELFPAY ==
[2023-07-05] MEDS: Normal Saline Flush 10 ML SYR IVP (13:03)
[2023-07-05] MEDS: IRON SUCROSE COMPLEX 300 MG in Normal Saline 250 ML 176.667 MG IVPB (13:10)
== END 2023-07-06 23:59 | disposition home or self-care (01) ==
LOC: INF 03:01
PROVIDERS: PCP Nurse Practitioner; Visit Provider Surgery
DX: K62.5 Hemorrhage of anus and rectum (principal); Z86.2 Personal history of diseases of the blood and blood-forming organs and certain disorders involving the immune mechanism
CPT/HCPCS: 96365; 96366; J1756

== ENCOUNTER → 2023-07-07 01:22 | Outpatient (CLI) | payer BC, MEDICAID, SELFPAY ==
--- NOTE | 2023-07-07 08:30 | DI.MAMMO_ITS ---
Exam(s) MAMMO SCREENING EXAM: MAMMO SCREENING CLINICAL HISTORY: screening,Z12.39. TECHNIQUE: Bilateral full field digital CC and MLO mammographic images were obtained with 3D tomosyn thesis and utilizing computer aided detection (CAD). COMPARISON: Prior outside mammograms dated June 2021 and June 2022 reviewed were reviewed. FINDINGS: There has been no significant change in the appearance and distribution of the fibroglandular tissue. No new left breast findings. Calcified nodular density slightly medial of center in the right breast which measures 7 x 6 mm locat ed 4.5 solid 2 meters in from the nipple on the CC view is unchanged from June 2021 (slightly over 2 years), and therefore most probably benign. There are no other nodular densities noted. No malignant-appearing microcalcification groups in either breast. There is no significant architectural distortion nor skin thickening-retraction. IMPRESSION: 1. No radiographic evidence of malignancy in left breast. 2. Stable appearing 7 x 6 mm nodule in the right breast, unchanged from prior outside mammograms of O nh2021 and June 2021 (2 years). I note that this patient has had prior mammograms (as per re ports obtained) dating back to 2016. Recommend obtaining these prior mammograms for further comparis on. An addendum will follow when these are received. BI-RADS Category 0 - Assessment Incomplete: Need additional imaging evaluation; specifically comparis on to prior outside mammograms of 2017 and 2017, if these can be obtained. Breast Density - Category B - Scattered areas of fibroglandular density Breast density Category C or D implies that the patient has dense breast tissue. Dense breast tissue can make it harder to find cancer on a mammogram. Dense breast tissue is also associated with an incr eased risk of breast cancer. This information about the result of the mammogram report was provided to the patient to raise their awareness. Use this report when you speak with the patient about their risks for breast cancer, which includes their family history. At that time, you may recommend additional screening tests (Ultrasoun d or MRI) as these tests may add significant information. A negative radiographic report should not delay biopsy if a dominant or clinically suspicious mass is present. Up to ten percent of cancers are not identified on mammography. A negative report may reinforce clinical impression. Adenosis and dense breasts may obscure an underlying neoplasm. False positive reports average 6 to 10%. Patient will receive a letter notifying them of these results.
== END ==
PROVIDERS: PCP Nurse Practitioner; Visit Provider Nurse Practitioner
DX: Z12.31 Encounter for screening mammogram for malignant neoplasm of breast (principal); R92.323 Mammographic fibroglandular density, bilateral breasts; N63.41 Unspecified lump in right breast, subareolar
CPT/HCPCS: 77063; 77067

== ENCOUNTER 2023-07-19 02:09 | Outpatient (RCR) | payer BC, MEDICAID, SELFPAY ==
[2023-07-12] MEDS: Normal Saline Flush 10 ML SYR IVP (13:05)
[2023-07-12] MEDS: IRON SUCROSE COMPLEX 300 MG in Normal Saline 250 ML 176.667 MG IVPB (13:05)
[2023-07-19] MEDS: IRON SUCROSE COMPLEX 300 MG in Normal Saline 250 ML 176.667 MG IVPB (13:10)
[2023-07-19] MEDS: Normal Saline Flush 10 ML SYR IVP (13:14)
== END 2023-08-05 23:59 | disposition home or self-care (01) ==
LOC: INF 02:09
PROVIDERS: PCP Nurse Practitioner; Visit Provider Surgery
DX: K62.5 Hemorrhage of anus and rectum (principal); Z86.2 Personal history of diseases of the blood and blood-forming organs and certain disorders involving the immune mechanism
CPT/HCPCS: 96365; 96366; J1756

== ENCOUNTER 2023-11-08 09:49 | Emergency (ER) | payer SELFPAY ==
[2023-11-08 09:52] VITALS: BP 126/53; PULSE 74; RESP 18; TEMP 36.6; O2SAT 100
--- NOTE | 2023-11-08 10:00 | DI.CT_ITS ---
Exam(s) CT ABDOMEN PELVIS W EXAM: CT ABDOMEN PELVIS W CLINICAL HISTORY: RLQ tenderness. TECHNIQUE: Imaging Protocol: Axial computed tomography images with coronal and sagittal reformatted images were created and reviewed CONTRAST MATERIAL: Intravenous: Omnipaque 350 Contrast volume:100 ml Oral: no COMPARISON: No exams were available for comparison FINDINGS: ABDOMEN and PELVIS: Lung Bases: No acute findings. Liver: Normal density. No suspicious mass. Gallbladder and biliary tract: Status post cholecystectomy. No radiodense calculus or dilation. Pancreas: Normal density. No abnormal calcifications or inflammatory process. No evidence of mass. Spleen: Normal. Kidneys: Normal size, contour and axis. No radiodense stones. No obstructive uropathy. No suspicious masses seen. Adrenal glands: No masses seen. Vasculature: Abdominal aorta non-dilated. Soft tissues: Fatty containing hernia above the level of the umbilicus, measuring 5.8 cm. Wide neck without evidence of incarceration. Bladder: Nearly empty. No gross wall thickening. No calculi.No focal mass. Bowel: No obstruction. Sigmoid diverticulosis. Area of stranding seen in right lower quadrant, inf lammation is directly adjacent to the right ovary. No free air. Appendix normal. Peritoneal cavity: No ascites. No focal collection or mesenteric inflammatory response. Bones: Unremarkable for age. Reproductive organs: Status post hysterectomy. Lymph nodes: Unremarkable. IMPRESSION:: Sigmoid diverticulitis. Findings called to Lisseth Barrera ER provider.. RADIATION DOSE DELIVERED: 1,558.1mGy.cm Total DLP DATA REPOSITORY: All CT scans at this facility are submitted to the National Radiology Data Registry (NRDR) Dose Index Registry (DIR) with the [employer] (A[employer]). RADIATION OPTIMIZATION: All CT scans at this facility use at least one of these dose optimization te chniques: automated exposure control; mA and/or kV adjustment per patient size (includes targeted exa ms where dose is matched to clinical indication); or iterative reconstruction.
--- NOTE | 2023-11-08 10:10 | W.ED.GENAD ---
Discharge Plan Disposition Patient Disposition: Home Discharge Details Clinical Impression: Diverticulitis of sigmoid colon Primary Care Provider: Rachel Greene ED Provider: Barbie Vasquez Home Meds and New Rx's Prescriptions: No Action blood builder iron 2 tab PO BID Hold Instructions: Pt Stopped/Never Started OTC FLuid Pill 1 tab PO DAILY PRN (Reason: Edema) fexofenadine [Amarilis Allergy] 60 mg tablet 60 mg PO Q12H PRN montelukast [Singulair] 10 mg tablet 10 mg PO DAILY Qty: 90 3RF Eliquis 2.5 mg tablet 2.5 mg PO BID benzonatate 100 mg capsule 100 mg PO TID PRN (Reason: cough) Qty: 14 0RF albuterol sulfate [Ventolin HFA] 90 mcg/actuation HFA aerosol inhaler 2 puff inhalation Q6H PRN (Reason: shortness of breath or wheezing) Qty: 8.5 4RF famotidine 20 mg tablet See Rx Instructions .ROUTE .COMPLEX Qty: 60 3RF Dose Instruction: TAKE ONE TABLET BY MOUTH TWICE A DAY Rx Instructions: TAKE ONE TABLET BY MOUTH TWICE A DAY Discharge Instructions Instructions: Diverticulitis (ED), Diverticulitis Diet (ED) Additional Instructions: Please call [facility] internal medicine first thing in the morning to schedule a follow-up appointment for reassessment. I have prescribed for you Augmentin. Please take the full course as prescribed. I recommend that you do a liquid diet for the next 2 days, then soft/gentle foods as tolerated for the next couple of days. You may continue to use Tylenol as needed for discomfort. Stay well-hydrated, drinking plenty of fluids throughout the day. Return to emergency care for develop new fevers, severe abdominal pain/change in abdominal pain, blood in stool, uncontrollable vomiting/are unable to hold down fluids or medications, or if you are very worried and need to be rechecked again immediately Referrals: Rachel Greene, SHAQUILLE [Primary Care Provider] - HPI General Date/Time Provider Initiated Documentation: 11/08/23 09:53. HPI Narrative: Rahul is a 53-year-old female with history of blood clots currently anticoagulated on Eliquis who presents to the emergency department today for evaluation of right lower quadrant pain accompanied by cold sweats. She reports this started 3 days ago on Wednesday, is described as aching discomfort rated 6 or 7 out of 10, worsened with jostling or movement. She has been able to tolerate p.o. without difficulty, but says that today she only had some coffee because she was not hungry as usual. She denies fevers, congestion, sore throat, cough, nausea/vomiting, change in bowel or bladder function, vaginal bleeding or discharge, black/tarry stools. She does have a history of perforation in her bowel, says this was diagnosed in 2012. She had a colonoscopy a year or so ago, says this was unremarkable. She did have gallbladder removal, denies other abdominal surgeries. She took Tylenol around 630 this morning. Related Data Home Medications Medication Instructions Recorded Confirmed fexofenadine 60 mg tablet (Amarilis 60 mg PO Q12H PRN 10/20/22 11/08/23 Allergy) montelukast 10 mg tablet 10 mg PO DAILY #90 tabs 10/20/22 11/08/23 (Singulair) albuterol sulfate 90 mcg/actuation 2 puff inhalation Q6H PRN 01/06/23 11/08/23 aerosol inhaler (Ventolin HFA) shortness of breath or wheezing #8.5 grams OTC FLuid Pill 1 tab PO DAILY PRN Edema 04/27/23 11/08/23 blood builder iron 2 tab PO BID 04/27/23 11/08/23 famotidine 20 mg tablet See Rx Instructions .Route 07/26/23 11/08/23 .COMPLEX #60 tabs apixaban 2.5 mg tablet (Eliquis) 2.5 mg PO BID 09/08/23 11/08/23 benzonatate 100 mg capsule 100 mg PO TID PRN cough #14 caps 09/08/23 11/08/23 Previous Rx's Medication Instructions Recorded montelukast 10 mg tablet 10 mg PO DAILY #90 tabs 10/20/22 (Singulair) albuterol sulfate 90 mcg/actuation 2 puff inhalation Q6H PRN 01/06/23 aerosol inhaler (Ventolin HFA) shortness of breath or wheezing #8.5 grams famotidine 20 mg tablet See Rx Instructions .Route 07/26/23 .COMPLEX #60 tabs benzonatate 100 mg capsule 100 mg PO TID PRN cough #14 caps 09/08/23 Allergies Allergy/AdvReac Type Severity Reaction Status Date / Time rubber, unspecified Allergy Intermediate blotchy Verified 11/08/23 09:55 skin latex Allergy Unknown hives Verified 11/08/23 09:55 EKG Tabs Allergy Intermediate Skin Rash Uncoded 11/08/23 09:55 seasonal allergies AdvReac Intermediate sinus Uncoded 11/08/23 09:55 congestions, ear problems General Stated Complaint: Abd Prob QIANA: 3 Review of Systems Narrative: see HPI Exam Const General: cooperative, healthy appearing, comfortable and no acute distress HENMT Mouth: oral mucosae normal Resp Effort & Inspection: normal respiratory effort and able to speak in complete sentences Auscultation: clear to auscultation bilaterally Cardio Rate: regular rate Rhythm: regular rhythm GI Inspection: normal to inspection Palpation: soft, not firm, no guarding, no hernias, no masses, not rigid and tender in the RLQ Course Vital Signs Vital signs: Vital Signs Temperature 36.6 C 11/08/23 09:52 Pulse 74 11/08/23 09:52 Respiratory Rate 18 11/08/23 09:52 Blood Pressure 126/53 L 11/08/23 09:52 Pulse Oximetry 100 11/08/23 09:52 Temperature 36.6 C 11/08/23 09:52 Temperature Source Skin 11/08/23 09:52 Pulse 74 11/08/23 09:52 Respiratory Rate 18 11/08/23 09:52 Respiratory Effort Normal, Non-Labored 11/08/23 09:57 Blood Pressure 126/53 L 11/08/23 09:52 Blood Pressure Position Sitting 11/08/23 09:52 Pulse Oximetry 100 11/08/23 09:52 Oxygen Delivery Method Room Air 11/08/23 09:52 Oxygen Flow Rate 0 11/08/23 09:52 Pain Level 7 11/08/23 09:52 Medical Decision Making Rahul is a 53-year-old female with history of blood clots currently anticoagulated on Eliquis who presents to the emergency department today for evaluation of right lower quadrant pain accompanied by cold sweats. She reports this started 3 days ago on Wednesday, is described as aching discomfort rated 6 or 7 out of 10, worsened with jostling or movement. She has been able to tolerate p.o. without difficulty, but says that today she only had some coffee because she was not hungry as usual. She denies fevers, congestion, sore throat, cough, nausea/vomiting, change in bowel or bladder function, vaginal bleeding or discharge, black/tarry stools. She does have a history of perforation in her bowel, says this was diagnosed in 2013. She had a colonoscopy a year or so ago, says this was unremarkable. She did have gallbladder removal, denies other abdominal surgeries. She took Tylenol around 630 this morning. Physical exam remarkable for tenderness palpation to right lower quadrant. No rebound tenderness, rigidity or guarding. Abdomen is soft, nondistended. Easy work of breathing, lung sounds clear bilaterally. Normal heart sounds. Moist mucous membranes. DDx includes but is not limited to: Appendicitis, diverticulitis, ovarian cyst (less likely), muscle strain I independently interpreted the following tests: CBC, CMP, and lactate all reassuring. Urine negative. CT abdomen/pelvis remarkable for sigmoid diverticulitis. Discussed findings with patient, she is concerned because she thinks that diverticulitis is the reason why she had a perforation in her bowel before requiring hospitalization. She would like to start antibiotics at this time. Will treat with Augmentin 875 twice daily x 7 days and have her follow-up with PCP. Reviewed liquid diet and red flags indicating need for return to emergency care. She is agreeable with plan of care Imaging Data Radiologic Study: Radiologist's impression: EXAM: CT ABDOMEN PELVIS W CLINICAL HISTORY: RLQ tenderness. TECHNIQUE: Imaging Protocol: Axial computed tomography images with coronal and sagittal reformatted images were created and reviewed CONTRAST MATERIAL: Intravenous: Omnipaque 350 Contrast volume:100 ml Oral: no COMPARISON: No exams were available for comparison FINDINGS: ABDOMEN and PELVIS: Lung Bases: No acute findings. Liver: Normal density. No suspicious mass. Gallbladder and biliary tract: Status post cholecystectomy. No radiodense calculus or dilation. Pancreas: Normal density. No abnormal calcifications or inflammatory process. No evidence of mass. Spleen: Normal. Kidneys: Normal size, contour and axis. No radiodense stones. No obstructive uropathy. No suspicious masses seen. Adrenal glands: No masses seen. Vasculature: Abdominal aorta non-dilated. Soft tissues: Fatty containing hernia above the level of the umbilicus, measuring 5.8 cm. Wide neck without evidence of incarceration. Bladder: Nearly empty. No gross wall thickening. No calculi.No focal mass. Bowel: No obstruction. Sigmoid diverticulosis. Area of stranding seen in right lower quadrant, inflammation is directly adjacent to the right ovary. No free air. Appendix normal. Peritoneal cavity: No ascites. No focal collection or mesenteric inflammatory response. Bones: Unremarkable for age. Reproductive organs: Status post hysterectomy. Lymph nodes: Unremarkable. IMPRESSION:: Sigmoid diverticulitis. Findings called to Lisseth Barrera, ER provider.. Quality:SDOH Health Related Social Needs: No Data to Display PFSH All Active Problems (Updated 11/08/23 @ 12:07 by Barbie Barrera) Diverticulitis of sigmoid colon (Acute) Anticoagulated (Acute) History of DVT (deep vein thrombosis) (Acute) Hx of iron deficiency anemia (Acute) Hx pulmonary embolism (Chronic) post embolectomy (possible saddle per pt description) Surgical History Hx of colonoscopy (~04/2023) Hx laparoscopic cholecystectomy Family History Maternal Grandfather Diabetes Maternal Grandmother Diabetes Mother Diabetes Social History Smoking/Tobacco Use Status: Never Smoking risk assessment performed?: Yes Alcohol Intake: never Drug use: Never Substance use type: does not use Household members: family Housing: apartment Number of Children: 2 number of grandchildren: 1 Communication Needs: Corrective Lenses Education Level: high school current occupation: [employer] in [place] What is your relationship status?: How often do you get together with friends or relatives?: three or more times per week Panel score (0-1 are the most socially isolated patients): 1 What type of physical activity do you participate in: none Working smoke detector in home: Yes Fire extinguisher in home: Yes Carbon monox detector in home: Yes Do you feel safe at home: Yes Do you feel safe in your relationship?: Yes
[2023-11-08 10:17] LABS: Lactate 1.1 mmol/L (0.6-1.4)
[2023-11-08 10:18] LABS: HCT 36.1 % (36.0-46.0); HGB 10.9 g/dL (11.2-15.7); MCH 24.2 pg (27.0-33.0); MCHC 30.2 % (32.0-36.0); MCV 80 fL (80-95); MPV 9.8 fL (8.0-11.0); Platelet Count 349 10^3/uL (130-400); RBC 4.51 10^6/uL (3.93-5.22); RDW 15.4 % (11.7-14.6); RDW-SD 44.8 fL; WBC 8.93 10^3/uL (4.4-10.8)
[2023-11-08 10:39] LABS: ALT 29 U/L (14-59); AST 13 U/L (15-37); Alkaline Phosphatase 100 U/L (46-116); Anion Gap 13.5 mmol/L (3-11); BUN 12 mg/dL (7-18); Bilirubin, Total 0.5 mg/dL (0.2-1.0); CO2 22.5 mmol/L (21.0-32.0); CREATININE 0.9 mg/dL (0.55-1.02); Calcium 9.9 mg/dL (8.5-10.1); Chloride 102 mmol/L (98-107); Estimated GFR 76.44 (mL/min/1.73m2); Glucose 108 mg/dL (74-106); Potassium 4.1 mmol/L (3.5-5.1); Sodium 138 mmol/L (136-145)
[2023-11-08] MEDS: Normal Saline - Diluent 50 ML VIAL IJ (11:23)
[2023-11-08] MEDS: Omnipaque 350 MG/ML 500 ML BTL-Imaging package IJ (11:24)
[2023-11-08 11:31] LABS: Bilirubin Negative (Negative); Blood Negative (Negative); Clarity Clear (Clear); Glucose Negative (Negative); Ketones Negative (Negative); Leukocyte Esterase Negative (Negative); Nitrite Negative (Negative); Urobilinogen 0.2 mg/dL (Up to 0.2)
[2023-11-08 12:21] VITALS: BP 126/53; PULSE 74; RESP 18; TEMP 36.6; O2SAT 100
[2023-11-08 12:25] VITALS: BP 126/53; PULSE 74; RESP 18; TEMP 36.6; O2SAT 100
== END 2023-11-08 12:23 | disposition home or self-care (01) ==
LOC: ER 12:26
PROVIDERS: Emergency Provider Nurse Practitioner Family; PCP Nurse Practitioner
DX: K57.32 Diverticulitis of large intestine without perforation or abscess without bleeding (principal); Z86.718 Personal history of other venous thrombosis and embolism; Z86.711 Personal history of pulmonary embolism; Z79.01 Long term (current) use of anticoagulants
CPT/HCPCS: 80053; 85027; 99285; 74177; 81003; 83605; 99284

== ENCOUNTER 2024-01-04 10:52 | Outpatient (CLI) | payer BC, SELFPAY ==
[2024-01-04 12:18] LABS: Abs Immature Grans 0.03 10^3/uL (0.0-0.06); Absolute Basophil Count 0.03 10^3/uL (0.0-0.2); Absolute Eosinophil Count 0.11 10^3/uL (0.0-0.7); Absolute Lymphocyte Count 2.36 10^3/uL (1.2-3.4); Absolute Monocyte Count 0.53 10^3/uL (0.1-0.8); Absolute Neutrophil Count 5.15 10^3/uL (1.2-6.7); Basophils % 0.4; Eosinophils % 1.3; Immature Grans % 0.4; Lymphocytes % 28.7; MCH 23.7 pg (27.0-33.0); MCHC 29.5 % (32.0-36.0); MCV 80 fL (80-95); MPV 9.3 fL (8.0-11.0); Monocytes % 6.5; Neutrophils % 62.7; Platelet Count 342 10^3/uL (130-400); RBC 2.74 10^6/uL (3.93-5.22); RDW 16.8 % (11.7-14.6); RDW-SD 49.3 fL; WBC 8.21 10^3/uL (4.4-10.8)
[2024-01-04 12:24] LABS: HGB 6.5 g/dL (11.2-15.7)
[2024-01-04 12:46] LABS: Iron 6 ug/dL (50-170); Total Iron Binding Capacity 452 ug/dL (250-450)
[2024-01-04 12:53] LABS: Ferritin 5 ng/mL (8-252)
== END 2024-01-04 10:53 | disposition home or self-care (01) ==
LOC: LBO 10:53
PROVIDERS: PCP Nurse Practitioner; Visit Provider Nurse Practitioner
DX: J45.909 Unspecified asthma, uncomplicated (principal); D64.9 Anemia, unspecified
CPT/HCPCS: 36415; 82728; 83540; 83550; 85025

== ENCOUNTER 2024-01-04 12:36 | Inpatient (IN) | payer BC, SELFPAY ==
[2024-01-04] VITALS (37 sets, daily range): BP systolic 103–139; BP diastolic 55–88; PULSE 72–102; RESP 13–26; TEMP 36.5–37; O2SAT 95–100
--- NOTE | 2024-01-04 12:45 | RT.EKG_ITS ---
APPROVED REPORT Exam: Resting ECG Reason for Exam: GI bleed, anemia Patient Location: E HR:95 bpm ECG Measurements Heart Rate 95 AXIS OH 166 P 43 QRSd 104 QRS 26 QT 368 T 66 QTc 463 Conclusion Sinus rhythm...normal P axis, V-rate 60- 99 Physician: no stemi
--- NOTE | 2024-01-04 12:59 | DI.CT_ITS ---
Exam(s) CT ABDOMEN PELVIS CTA EXAM: CT ABDOMEN PELVIS CTA CLINICAL HISTORY: lower abd pain, GI bleed. TECHNIQUE: Imaging Protocol: Axial CT angiography was performed with multi-slice acquisition and m ulti-planar and/or 3D reconstructions. CONTRAST MATERIAL: Intravenous: Omnipaque 350 Contrast volume:structured data in ml Oral: no COMPARISON: CT CT ABDOMEN PELVIS W from 11/08/2023 FINDINGS: Vascular Structures: Celiac [place]:No evidence of stenosis. SMA: No evidence of stenosis. Renal Arteries: No evidence of stenosis. There is a single renal artery perfusing each kidney. Aorta: No aneurysm. No dissection. No significant stenosis. Iliac Arteries: No evidence of stenosis. Common Femoral Arteries: No evidence of stenosis. Soft Tissues:Fatty containing hernia above the level of the umbilicus. Lung bases:No acute findings. Liver: Normal size. Normal density. No measurable mass. Gallbladder and biliary tract: Status post cholecystectomy. Pancreas: Normal density, no abnormal calcifications or inflammatory process. Spleen: Normal. Kidneys: Normal size, contour and axis. No obstructive uropathy. No masses seen. No evidence of calcu li. Adrenal glands: No masses seen. Bladder: No gross wall thickening. No evidence of calculi. No evidence of mass. Bowel: No evidence of active GI bleed. No obstruction or bowel wall thickening. Sigmoid diverticul osis. Mild stranding surrounding the sigmoid in the right lower quadrant. This could be residual fr om the prior exam or represent a new bout of diverticulitis. Peritoneal cavity: No ascites. No focal collection. No free air Bones: No acute findings. Lymph nodes: Within normal limits. Reproductive: Status post hysterectomy. IMPRESSION: No evidence active GI bleed. Mild sigmoid diverticulitis. RADIATION DOSE DELIVERED: 4,092.18mGy.cm Total DLP DATA REPOSITORY: All CT scans at this facility are submitted to the National Radiology Data Registry (NRDR) Dose Index Registry (DIR) with the [employer] (ACR). RADIATION OPTIMIZATION: All CT scans at this facility use at least one of these dose optimization te chniques: automated exposure control; mA and/or kV adjustment per patient size (includes targeted exa ms where dose is matched to clinical indication); or iterative reconstruction.
[2024-01-04 13:27] LABS: Abs Immature Grans 0.02 10^3/uL (0.0-0.06); Absolute Basophil Count 0.03 10^3/uL (0.0-0.2); Absolute Lymphocyte Count 2.25 10^3/uL (1.2-3.4); Absolute Monocyte Count 0.49 10^3/uL (0.1-0.8); Basophils % 0.4; Eosinophils % 1.3; HCT 22.6 % (36.0-46.0); Immature Grans % 0.3; Lymphocytes % 28.9; MCH 23.8 pg (27.0-33.0); MCHC 29.6 % (32.0-36.0); MCV 80 fL (80-95); MPV 9.7 fL (8.0-11.0); Monocytes % 6.3; Neutrophils % 62.8; Nucleated RBC 0.3 % (0.0-0.3); Platelet Count 367 10^3/uL (130-400); RBC 2.82 10^6/uL (3.93-5.22); RDW 16.6 % (11.7-14.6); RDW-SD 48.8 fL; WBC 7.79 10^3/uL (4.4-10.8)
--- NOTE | 2024-01-04 13:28 | ED.GENADUL_ITS ---
Discharge Plan Discharge Details Chief Complaint: GI Bleed Primary Care Provider: Rachel Greene ED Provider: Barbie Vasquez Home Meds and New Rx's Prescriptions: No Action OTC FLuid Pill 1 tab PO DAILY PRN (Reason: Edema) fexofenadine [Amarilis Allergy] 60 mg tablet 60 mg PO Q12H PRN Eliquis 2.5 mg tablet 2.5 mg PO BID albuterol sulfate [Ventolin HFA] 90 mcg/actuation HFA aerosol inhaler 2 puff inhalation Q6H PRN (Reason: shortness of breath or wheezing) Qty: 8.5 4RF famotidine 20 mg tablet 20 mg PO BID Rx Instructions: TAKE ONE TABLET BY MOUTH TWICE A DAY montelukast [Singulair] 10 mg tablet 10 mg PO DAILY PRN HPI General Date/Time Provider Initiated Documentation: 01/04/24 12:59 . 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 She reports she has had bloody diarrhea (4x daily) with the feeling of unwellness in her lower abdomen for the last week that has been increasing in intensity. This is accompanied by nausea. She denies associated fever/chills, dizziness, palpitations, chest pain, shortness of breath, vomiting, change in bowel or bladder function. She had her CBC checked yesterday, hemoglobin was 7. She was advised to come to the infusion clinic today to have a blood transfusion. When she got to the infusion clinic her hemoglobin was 6.5 and she was told to come to the emergency department. She does have a history of GI bleed with diverticulitis in the past requiring blood transfusion. She says this is similar, however she does not have the same pain in the lower abdomen this time. Related Data Home Medications Medication Instructions Recorded Confirmed fexofenadine 60 mg tablet (Amarilis 60 mg PO Q12H PRN 10/20/22 01/04/24 Allergy) albuterol sulfate 90 mcg/actuation 2 puff inhalation Q6H PRN 01/06/23 01/04/24 aerosol inhaler (Ventolin HFA) shortness of breath or wheezing #8.5 grams OTC FLuid Pill 1 tab PO DAILY PRN Edema 04/27/23 01/04/24 apixaban 2.5 mg tablet (Eliquis) 2.5 mg PO BID 09/08/23 01/04/24 famotidine 20 mg tablet 20 mg PO BID 01/04/24 01/04/24 montelukast 10 mg tablet 10 mg PO DAILY PRN 01/04/24 01/04/24 (Singulair) Previous Rx's Medication Instructions Recorded albuterol sulfate 90 mcg/actuation 2 puff inhalation Q6H PRN 01/06/23 aerosol inhaler (Ventolin HFA) shortness of breath or wheezing #8.5 grams Allergies Allergy/AdvReac Type Severity Reaction Status Date / Time rubber, unspecified Allergy Intermediate blotchy Verified 01/04/24 13:38 skin latex Allergy Unknown hives Verified 01/04/24 13:38 EKG Tabs Allergy Intermediate Skin Rash Uncoded 01/04/24 13:38 seasonal allergies AdvReac Intermediate sinus Uncoded 01/04/24 13:38 congestions, ear problems General Stated Complaint: GI Bleed QIANA: 3 Review of Systems Narrative: see HPI Exam Const General: cooperative, comfortable and well developed Nutritional Appearance: obese Orientation: alert and awake Eyes Conjunctivae: conjunctival abnormality bilaterally pallor Resp Effort & Inspection: normal respiratory effort and able to speak in complete sentences Cardio Rate: tachycardic Rhythm: regular rhythm GI Inspection: normal to inspection Palpation: soft, not firm, no pulsatile masses and nontender Auscultation: normal bowel sounds Rectal Exam - female: visual inspection normal, heme positive stool and hemorrhoids (external) Course Vital Signs Vital signs: Vital Signs Temperature 37.0 C 01/04/24 12:43 Pulse 102 H 01/04/24 12:43 Respiratory Rate 20 01/04/24 12:43 Blood Pressure 117/88 01/04/24 12:43 Pulse Oximetry 100 01/04/24 12:43 Temperature 37.0 C 01/04/24 12:43 Temperature Source Tympanic 01/04/24 12:43 Pulse 102 H 01/04/24 12:43 Respiratory Rate 20 01/04/24 12:43 Respiratory Effort Normal 01/04/24 12:47 Blood Pressure 117/88 01/04/24 12:43 Blood Pressure Position Sitting 01/04/24 12:43 Pulse Oximetry 100 01/04/24 12:43 Oxygen Delivery Method Room Air 01/04/24 12:43 Oxygen Flow Rate 0 01/04/24 12:43 Medical Decision Making Rahul is a 53-year-old female with history of DVT 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 She reports she has had bloody diarrhea (4x daily) with the feeling of unwellness in her lower abdomen for the last week that has been increasing in intensity. This is accompanied by nausea. She denies associated fever/chills, dizziness, palpitations, chest pain, shortness of breath, vomiting, change in bowel or bladder function. She had her CBC checked yesterday, hemoglobin was 7. She was advised to come to the infusion clinic today to have a blood transfusion. When she got to the infusion clinic her hemoglobin was 6.5 and she was told to come to the emergency department. She does have a history of GI bleed with diverticulitis in the past requiring blood transfusion. She says this is similar, however she does not have the same pain in the lower abdomen this time. Physical exam remarkable for pale conjunctiva. Easy work of breathing. Normal heart sounds with tachycardia, no murmur noted. Abdomen is soft, nondistended, nontender to palpation with normal active bowel sounds. Rectal exam remarkable for positive Hemoccult, no obvious blood on finger. External hemorrhoid is noted, nonthrombosed. DDx includes was not limited to: Neoplasm, internal hemorrhoid, diverticulitis I independently interpreted the following labs: CBC notable for significant anemia, H&H 6.7 and 22.6. This is acutely changed from 11/08/2023 in which H&H was 10.9 and 36.1. Coags unremarkable. CMP notable for CO2 19.2 with anion gap 13.8. Mild hypokalemia of 3.4 History and presentation consistent with lower GI bleed. CTA per protocol ordered. 1300: Discussed case with general surgeon Dr. Webster. She advised giving patient TXA for lower GI bleed. 1 unit of packed red blood cells administered after consent given by patient after reviewing risks and benefits of procedure. Patient to be admitted to ICU via general surgery service. Quality:SDOH Health Related Social Needs: No Data to Display PFSH All Active Problems (Updated 12/09/23 @ 00:06 by PAN LANDERS) Hx of iron deficiency (Acute) s/p iron infusions per Dr. Zuniga, post Apr 2023 GI Bleed/[place] History of GI bleed (Acute) Slow bleed per pt report, [place] 04/2024 Hemorrhoids (Acute) Anticoagulated (Acute) History of DVT (deep vein thrombosis) (Acute) Hx of iron deficiency anemia (Acute) Hx pulmonary embolism (Chronic) post embolectomy (possible saddle per pt description) Surgical History Hx of colonoscopy (~04/2023) Hx laparoscopic cholecystectomy Family History Maternal Grandfather Diabetes Maternal Grandmother Diabetes Mother Diabetes Social History Smoking/Tobacco Use Status: Never Smoking risk assessment performed?: Yes Alcohol Intake: never Drug use: Never Substance use type: does not use Household members: family Housing: apartment Number of Children: 2 number of grandchildren: 1 Communication Needs: Corrective Lenses Education Level: high school current occupation: [employer] in [place] What is your relationship status?: How often do you get together with friends or relatives?: three or more times per week Panel score (0-1 are the most socially isolated patients): 1 What type of physical activity do you participate in: none Working smoke detector in home: Yes Fire extinguisher in home: Yes Carbon monox detector in home: Yes Do you feel safe at home: Yes Do you feel safe in your relationship?: Yes
[2024-01-04 13:39] LABS: HGB 6.7 g/dL (11.2-15.7)
[2024-01-04 13:41] LABS: ALT 29 U/L (14-59); AST 14 U/L (15-37); Albumin 3.7 g/dL (3.4-5.0); Alkaline Phosphatase 82 U/L (46-116); Anion Gap 13.8 mmol/L (3-11); BUN 10 mg/dL (7-18); Bilirubin, Total 0.2 mg/dL (0.2-1.0); CO2 19.2 mmol/L (21.0-32.0); CREATININE 0.9 mg/dL (0.55-1.02); Calcium 8.6 mg/dL (8.5-10.1); Chloride 108 mmol/L (98-107); Estimated GFR 76.44 (mL/min/1.73m2); Glucose 107 mg/dL (74-106); Magnesium 1.8 mg/dL (1.8-2.4); Potassium 3.4 mmol/L (3.5-5.1); Sodium 141 mmol/L (136-145); Total Protein 7.1 g/dL (6.4-8.2)
[2024-01-04] MEDS: Normal Saline - Diluent 50 ML VIAL IJ (14:02)
[2024-01-04] MEDS: Normal Saline Flush 10 ML SYR IVP ×2 (14:02→21:03)
[2024-01-04] MEDS: Omnipaque 350 MG/ML 100 ML BTL IJ (14:03)
[2024-01-04 14:32] LABS: PTT Activated 23.9 sec (23.6-32.8)
[2024-01-04] MEDS: Tranexamic Acid 1,000 MG/10 ML VIAL 1000 MG IVP (15:30)
--- NOTE | 2024-01-04 15:53 | W.PM.HP.N ---
Date of service: 01/04/24 Time of Service: 15:53 Assessment and Plan Assessment and plan (1) Anticoagulated: Status: Acute (2) History of DVT (deep vein thrombosis): Status: Acute Assessment and plan: Patient has been on apixaban since she had a PE in 2013 following a plane ride from [place] to [place]. Vascular medicine at [facility] called an unprovoked DVT and told her she needed to be on anticoagulation indefinitely. She has had not had a hematologic workup. She had no DVTs or PEs with any of her other surgeries or pregnancies. We did hold the apixaban to do her colonoscopy and she had no problems (3) Hx pulmonary embolism: Status: Chronic (4) History of GI bleed: Status: Acute Assessment and plan: This is her second GI bleed that has required blood transfusion. She had a similar episode in April 2023. No source could be found at that time. She does have some small internal hemorrhoids and severe diverticula noted on colonoscopy -Consider resection of the diverticula to prevent further bleeding. Her last echo and PFTs at [facility] were normal. (5) Hx of iron deficiency anemia: Status: Acute (6) Hx of iron deficiency: Status: Acute (7) S/P LUIZ (total abdominal hysterectomy): (8) Acute lower gastrointestinal bleeding: Status: Acute Assessment and plan: - TXA Hold Eliquis- -2 units packed RBC -Venofer Protonix- -No clear signs of upper GI bleeding source. She does have extensive diverticula and hemorrhoids. Possible flex sig to visualize hemorrhoids tomorrow if continues to have significant bleeding versus medical management no active bleeding noted on CT angio today. -Hemodynamically stable currently This document was created with voice activated software and may contain errors. 30 mins spent in direct pt care and 40 in non face to face time History of Present Illness Narrative: Patient is a 53-year-old male with a history of lower GI bleed. He has been having ongoing rectal bleeding for the past week. The blood is bright red. She denies any trauma. She denies any eating any unusual foods. She denies any travel. No one else at home is sick. This is the second GI bleed that she has had that required transfusion. She has had a colonoscopy in 2022. She did have very extensive diverticulosis from 25 to 60 cm which would be amenable to resection. She has had a hysterectomy in the past. She has had no problems with anesthesia. She has had a history of DVT and PE and is on chronic anticoagulation. It is unknown what bleeding diathesis she has. I did review her chart from [facility] where she had her embolectomy/thrombectomy for bilateral pulmonary artery thrombosis. She was not worked up for a hypercoagulable disorder at that time. It was thought this was due to a provoked DVT from a prolonged car ride She has noticed that she has been having shortness of breath particularly when she goes up and down stairs. She denies any chest pain. She was feeling weak and short of breath and needed to get her hemoglobin checked. It was 6.7 today, and she was told to come to the ER by PCP. She denies any sharp abdominal pain. She has some periumbilical discomfort. She feels full/bloated. No nausea vomiting. Again she has been passing a large amount of bright red blood per rectum/melena. She denies any fever or chills. She does not have much appetite right now. She does not have any sharp pain in the left lower quadrant. She has no fever or white count. Patient does not take aspirin daily. Patient denies any alcohol or tobacco use. She does not use THC products. She does not take NSAIDs on a regular basis. She is not on any steroids. She is not diabetic. CE 04/28 After the induction of monitored anesthetic care, and with the patient in left lateral decubitus position, I began by performing an external anorectal exam.? Perineum and skin were normal, as was the anal verge.? External anorectal exam was normal.? Next, I performed a digital rectal exam.? I did not appreciate any abnormal findings.? Next, I advanced a colonoscope into the rectal vault.? I performed retroflexion.? There are internal hemorrhoids. None have any stigmata of recent bleeding.? Using insufflation, I then advanced the colonoscope beyond the rectal folds and into the sigmoid colon before advancing towards the cecum.? There was extensive sigmoid diverticulosis, extending from about 25 cm from the anus to about 60 cm from the anus. The quality of the prep was excellent.? The scope was noted to be in the cecum by identification of the ileocecal valve and appendiceal orifice.? I then began withdrawing the colonoscope using repeated irrigation as necessary for full evaluation of the colonic mucosa. ?Once the scope was withdrawn to the level of the rectum, great care was taken to examine portions of the rectal folds.? In my opinion, the nature of the internal hemorrhoids did not warrant banding at this time. Finally, the scope was withdrawn and the patient was brought to the same-day surgery recovery unit as the anesthetic wore off. ?The findings and instructions were shared with the patient prior to discharge. Review of Systems All systems reviewed & are unremarkable except as noted in HPI and below PFSH All Active Problems (Updated 01/04/24 @ 16:34 by Reyna Webster DO) Acute lower gastrointestinal bleeding (Acute) Hx of iron deficiency (Acute) s/p iron infusions per Dr. Zuniga, post Apr 2023 GI Bleed/[place] History of GI bleed (Acute) Slow bleed per pt report, [place] 04/2024 Hemorrhoids (Acute) Anticoagulated (Acute) History of DVT (deep vein thrombosis) (Acute) Provoked following a car trip to [place]. Patient was never worked up for a clotting disorder Hx of iron deficiency anemia (Acute) Hx pulmonary embolism (Chronic) post embolectomy (possible saddle per pt description) Surgical History (Updated 01/04/24 @ 16:34 by Reyna Webster DO) History of embolectomy Bilateral pulmonary artery embolectomy due to provoked DVT S/P LUIZ (total abdominal hysterectomy) History of History of ERCP for Gallstones Hx of colonoscopy (~04/2023) Hx laparoscopic cholecystectomy Family History Maternal Grandfather Diabetes Maternal Grandmother Diabetes Mother Diabetes Social History Smoking/Tobacco Use Status: Never Smoking risk assessment performed?: Yes Alcohol Intake: never Drug use: Never Substance use type: does not use Household members: family Housing: apartment Number of Children: 2 number of grandchildren: 1 Communication Needs: Corrective Lenses Education Level: high school current occupation: [employer] in [place] What is your relationship status?: How often do you get together with friends or relatives?: three or more times per week Panel score (0-1 are the most socially isolated patients): 1 What type of physical activity do you participate in: none Working smoke detector in home: Yes Fire extinguisher in home: Yes Carbon monox detector in home: Yes Do you feel safe at home: Yes Do you feel safe in your relationship?: Yes Meds Allergies and Home Medications Allergies Allergy/AdvReac Type Severity Reaction Status Date / Time rubber, unspecified Allergy Intermediate blotchy Verified 01/04/24 13:38 skin latex Allergy Unknown hives Verified 01/04/24 13:38 EKG Tabs Allergy Intermediate Skin Rash Uncoded 01/04/24 13:38 seasonal allergies AdvReac Intermediate sinus Uncoded 01/04/24 13:38 congestions, ear problems Home Medications Medication Instructions Recorded Confirmed Type fexofenadine 60 mg tablet (Amarilis 60 mg PO Q12H PRN 10/20/22 01/04/24 History Allergy) albuterol sulfate 90 mcg/actuation 2 puff inhalation Q6H PRN 01/06/23 01/04/24 Rx aerosol inhaler (Ventolin HFA) shortness of breath or wheezing #8.5 grams OTC FLuid Pill 1 tab PO DAILY PRN Edema 04/27/23 01/04/24 History apixaban 2.5 mg tablet (Eliquis) 2.5 mg PO BID 09/08/23 01/04/24 History famotidine 20 mg tablet 20 mg PO BID 01/04/24 01/04/24 History montelukast 10 mg tablet 10 mg PO DAILY PRN 01/04/24 01/04/24 History (Singulair) Exam Const General: cooperative, no acute distress and other (pale) Nutritional Appearance: overweight Orientation: alert, awake and oriented x3 Other: PHYSICAL EXAM GENERAL APPEARANCE: Alert, healthy appearance, oriented, x 3,? in no acute distress HYDRATION: Well hydrated HEAD, EYES, EARS, NECK, THROAT: Head is normocephalic, pupils equal, round, reactive to light and accommodation, ocular movement intact, sclera clear and no jaundice. ?Dentition intact. LUNGS: normal respiration/normal chest excursion. ?Clear to auscultation bilaterally. ?No wheeze. ?HEART: Regular rate and rhythm. no murmurs ABDOMEN: soft and non-tender to palpation.? Normal bowel sounds.? No hernias.? She notes she has some discomfort in the mid periumbilical portion of her abdomen radiating in bandlike fashion. There is no specific epigastric pain or left lower quadrant pain. She has good bowel sounds. There is no peritoneal signs. She had no active bleeding while I was interviewing her. LE-no leg pain or swelling Results Labs 01/04/24 13:20 01/04/24 13:20 Labs: Laboratory Results - last 24 hr 01/04/24 01/04/24 01/04/24 13:20 13:45 15:43 WBC 7.79 RBC 2.82 L Hgb 6.7 L* Hct 22.6 L MCV 80 MCH 23.8 L MCHC 29.6 L RDW 16.6 H Plt Count 367 MPV 9.7 Immature Gran % 0.3 Neutrophils % 62.8 Lymphocytes % 28.9 Monocytes % 6.3 Eosinophils % 1.3 Basophils % 0.4 Nucleated RBC % 0.3 Absolute Neutrophils 4.90 Absolute Lymphocytes 2.25 Absolute Monocytes 0.49 Absolute Eosinophils 0.10 Absolute Basophils 0.03 PT 10.0 INR 1.0 APTT 23.9 Sodium 141 Cancelled Potassium 3.4 L Cancelled Chloride 108 H Cancelled Carbon Dioxide 19.2 L Cancelled Anion Gap 13.8 H Cancelled BUN 10 Cancelled Creatinine 0.9 Cancelled Est GFR (CKD-EPI 2020) 76.44 Cancelled Glucose 107 H Cancelled Calcium 8.6 Cancelled Magnesium 1.8 Total Bilirubin 0.2 AST 14 L ALT 29 Alkaline Phosphatase 82 Total Protein 7.1 Albumin 3.7 ABO/Rh O Positive Antibody Screen NEGATIVE Crossmatch See Detail Last Vital Signs Temp 36.7 C 01/04/24 15:45 Pulse 86 01/04/24 15:45 Resp 16 01/04/24 15:45 BP 109/55 L 01/04/24 15:45 Pulse Ox 100 01/04/24 15:45 Anemia profile Hgb 6.7 g/dL (11.2-15.7) L* 01/04/24 Hct 22.6 % (36.0-46.0) L 01/04/24 MCV 80 fL (80-95) 01/04/24 RDW 16.6 % (11.7-14.6) H 01/04/24 Iron 6 ug/dL (50-170) L 01/04/24 Ferritin 5 ng/mL (8-252) L 01/04/24 TIBC 452 ug/dL (250-450) H 01/04/24 Transferrin % Sat 3 % (15-50) L 06/28/23 Basic Metabolic Sodium 141 mmol/L (136-145) 01/04/24 Potassium 3.4 mmol/L (3.5-5.1) L 01/04/24 Chloride 108 mmol/L (98-107) H 01/04/24 Carbon Dioxide 19.2 mmol/L (21.0-32.0) L 01/04/24 BUN 10 mg/dL (7-18) 01/04/24 Creatinine 0.9 mg/dL (0.55-1.02) 01/04/24 Estimated GFR/1.73 m2 92 mL/min/ 04/30/23 Glucose 107 mg/dL (74-106) H 01/04/24 CBC White Blood Count 7.79 10^3/uL (4.4-10.8) 01/04/24 Red Blood Count 2.82 10^6/uL (3.93-5.22) L 01/04/24 Hemoglobin 6.7 g/dL (11.2-15.7) L* 01/04/24 Hematocrit 22.6 % (36.0-46.0) L 01/04/24 Mean Corpuscular Volume 80 fL (80-95) 01/04/24 Mean Corpuscular Hemoglobin 23.8 pg (27.0-33.0) L 01/04/24 Mean Corpuscular Hemoglobin Concent 29.6 % (32.0-36.0) L 01/04/24 Red Cell Distribution Width 16.6 % (11.7-14.6) H 01/04/24 Platelet Count 367 10^3/uL (130-400) 01/04/24 Mean Platelet Volume 9.7 fL (8.0-11.0) 01/04/24 Neutrophils % 62.8 01/04/24 Lymphocytes % 28.9 01/04/24 Monocytes % 6.3 01/04/24 Eosinophils % 1.3 01/04/24 Basophils % 0.4 01/04/24 Immature Granulocytes % 0.3 01/04/24 Diabetes results Hemoglobin A1c 5.2 % (4.5-5.7) 10/20/22 Glucose 107 mg/dL (74-106) H 01/04/24 Total Cholesterol 205 mg/dcl (50-239) 04/10/23 LDL Cholesterol, Calc 113 mg/dL (-99) H 04/10/23 HDL Cholesterol 57 mg/dl (40-60) 04/10/23 Triglycerides 174 mg/dl (15-150) H 04/10/23 BUN 10 mg/dL (7-18) 01/04/24 Creatinine 0.9 mg/dL (0.55-1.02) 01/04/24 Estimated GFR/1.73 m2 92 mL/min/ 04/30/23 Est GFR (CKD-EPI 2020) 76.44 (mL/min/1.73m2) 01/04/24 Sodium 141 mmol/L (136-145) 01/04/24 Potassium 3.4 mmol/L (3.5-5.1) L 01/04/24 Chloride 108 mmol/L (98-107) H 01/04/24 Carbon Dioxide 19.2 mmol/L (21.0-32.0) L 01/04/24 Calcium 8.6 mg/dL (8.5-10.1) 01/04/24 AST 14 U/L (15-37) L 01/04/24 ALT 29 U/L (14-59) 01/04/24 Total Protein 7.1 g/dL (6.4-8.2) 01/04/24 Albumin 3.7 g/dL (3.4-5.0) 01/04/24 TSH 1.46 uIU/mL 04/30/23 Lipid profile Total Cholesterol 205 mg/dcl (50-239) 04/10/23 HDL Cholesterol 57 mg/dl (40-60) 04/10/23 LDL Cholesterol, Calc 113 mg/dL (-99) H 04/10/23 Triglycerides 174 mg/dl (15-150) H 04/10/23 Comprehensive Metabolic Panel Sodium 141 mmol/L (136-145) 01/04/24 13:20 Potassium 3.4 mmol/L (3.5-5.1) L 01/04/24 13:20 Chloride 108 mmol/L (98-107) H 01/04/24 13:20 Carbon Dioxide 19.2 mmol/L (21.0-32.0) L 01/04/24 13:20 BUN 10 mg/dL (7-18) 01/04/24 13:20 Creatinine 0.9 mg/dL (0.55-1.02) 01/04/24 13:20 Estimated GFR/1.73 m2 92 mL/min/ 04/30/23 09:23 Glucose 107 mg/dL (74-106) H 01/04/24 13:20 Calcium 8.6 mg/dL (8.5-10.1) 01/04/24 13:20 Total Bilirubin 0.2 mg/dL (0.2-1.0) 01/04/24 13:20 ALT 29 U/L (14-59) 01/04/24 13:20 AST 14 U/L (15-37) L 01/04/24 13:20 Alkaline Phosphatase 82 U/L (46-116) 01/04/24 13:20 Total Protein 7.1 g/dL (6.4-8.2) 01/04/24 13:20 Albumin 3.7 g/dL (3.4-5.0) 01/04/24 13:20 Time Spent Time spent with Patient: 55-74 minutes Time was spent: preparing to see the patient(eg.review tests), obtaining and/or reviewing separately otained hiistory, ordering medications,tests, procedures, referring, communicating with other health health care / medical job titles, indepentently interpreting results, counseling the patient and care coordination
--- NOTE | 2024-01-04 16:21 | W.PCEDHO ---
Registration Status: REG ER Primary Language: Preferred Language: ED Information & Data Chief Complaint GI Bleed 01/04/24 13:33 Triage Note Bright red blood with latest 01/04/24 12:43 bowl movement. Recent diagnosis of Diverticulitis, blood transfusion (2 units) in July 2023. Lower abdominal discomfort. (Last Reviewed 01/04/24 @ 15:56 by Reyna Webster DO) Hx of colonoscopy (~04/2023) Hx laparoscopic cholecystectomy Most Recent Vital Signs Temperature 36.7 C 01/04/24 15:45 Temperature Source Tympanic 01/04/24 12:43 Pulse 79 01/04/24 16:01 Pulse 82 01/04/24 16:01 Respiratory Rate 19 01/04/24 16:01 Respiratory Effort Normal 01/04/24 12:47 Blood Pressure 128/62 01/04/24 16:01 Blood Pressure Mean 86 01/04/24 16:01 Blood Pressure Position Sitting 01/04/24 12:43 Pulse Oximetry 100 01/04/24 16:01 Oxygen Delivery Method Room Air 01/04/24 15:45 Oxygen Flow Rate 0 01/04/24 15:45 Allergies rubber, unspecified Allergy (Intermediate, Verified 01/04/24 13:38) blotchy skin latex Allergy (Unknown, Verified 01/04/24 13:38) hives pt reports.HE EKG Tabs Allergy (Intermediate, Uncoded 01/04/24 13:38) Skin Rash seasonal allergies Adverse Reaction (Intermediate, Uncoded 01/04/24 13:38) sinus congestions, ear problems Active Medications Generic Name Dose Route Start Last Admin Trade Name Freq PRN Reason Stop Dose Admin Iohexol 100 ml 01/04/24 14:15 01/04/24 14:03 Omnipaque 350 Mg/Ml 100 Ml Btl IJ 02/03/24 23:59 100 ml DIRECTED KAVEH Administration Sodium Chloride 0 ml 01/04/24 20:00 01/04/24 14:02 Normal Saline Flush 10 Ml Syr IVP 10 ml BID KAVEH Administration Sodium Chloride 50 ml 01/04/24 14:15 01/04/24 14:02 Normal Saline - Diluent 50 Ml Vial IJ 50 ml .FOR DI USE KAVEH Administration Diet Orders Category Date Time Status npo [Nothing Per Oral] [DIET] Nutrition 01/04/24 Dinner Active Diagnostics 01/04/24 01/04/24 01/04/24 Range/Units Unknown 18:56 15:43 WBC Pending (4.4-10.8) 10^3/uL RBC Pending (3.93-5.22) 10^6/uL Hgb Pending (11.2-15.7) g/dL Hct Pending (36.0-46.0) % MCV Pending (80-95) fL MCH Pending (27.0-33.0) pg MCHC Pending (32.0-36.0) % RDW Pending (11.7-14.6) % Plt Count Pending (130-400) 10^3/uL MPV Pending (8.0-11.0) fL Immature Gran % Pending Neutrophils % Pending Lymphocytes % Pending Monocytes % Pending Eosinophils % Pending Basophils % Pending Nucleated RBC % (0.0-0.3) % Absolute Neutrophils Pending (1.2-6.7) 10^3/uL Absolute Lymphocytes Pending (1.2-3.4) 10^3/uL Absolute Monocytes Pending (0.1-0.8) 10^3/uL Absolute Eosinophils Pending (0.0-0.7) 10^3/uL Absolute Basophils Pending (0.0-0.2) 10^3/uL PT (9.1-11.1) sec INR (0.9-1.1) APTT (23.6-32.8) sec Sodium Pending Cancelled (136-145) mmol/L Potassium Pending Cancelled (3.5-5.1) mmol/L Chloride Pending Cancelled (98-107) mmol/L Carbon Dioxide Pending Cancelled (21.0-32.0) mmol/L Anion Gap Pending Cancelled (3-11) mmol/L BUN Pending Cancelled (7-18) mg/dL Creatinine Pending Cancelled (0.55-1.02) mg/dL Est GFR (CKD-EPI 2020) Pending Cancelled (mL/min/1.73m2) Glucose Pending Cancelled (74-106) mg/dL Calcium Pending Cancelled (8.5-10.1) mg/dL Magnesium Pending (1.8-2.4) mg/dL Total Bilirubin (0.2-1.0) mg/dL AST (15-37) U/L ALT (14-59) U/L Alkaline Phosphatase (46-116) U/L Troponin I Pending Total Protein (6.4-8.2) g/dL Albumin (3.4-5.0) g/dL ABO/Rh Antibody Screen Crossmatch 01/04/24 01/04/24 Range/Units 13:45 13:20 WBC 7.79 (4.4-10.8) 10^3/uL RBC 2.82 L (3.93-5.22) 10^6/uL Hgb 6.7 L* (11.2-15.7) g/dL Hct 22.6 L (36.0-46.0) % MCV 80 (80-95) fL MCH 23.8 L (27.0-33.0) pg MCHC 29.6 L (32.0-36.0) % RDW 16.6 H (11.7-14.6) % Plt Count 367 (130-400) 10^3/uL MPV 9.7 (8.0-11.0) fL Immature Gran % 0.3 Neutrophils % 62.8 Lymphocytes % 28.9 Monocytes % 6.3 Eosinophils % 1.3 Basophils % 0.4 Nucleated RBC % 0.3 (0.0-0.3) % Absolute Neutrophils 4.90 (1.2-6.7) 10^3/uL Absolute Lymphocytes 2.25 (1.2-3.4) 10^3/uL Absolute Monocytes 0.49 (0.1-0.8) 10^3/uL Absolute Eosinophils 0.10 (0.0-0.7) 10^3/uL Absolute Basophils 0.03 (0.0-0.2) 10^3/uL PT 10.0 (9.1-11.1) sec INR 1.0 (0.9-1.1) APTT 23.9 (23.6-32.8) sec Sodium 141 (136-145) mmol/L Potassium 3.4 L (3.5-5.1) mmol/L Chloride 108 H (98-107) mmol/L Carbon Dioxide 19.2 L (21.0-32.0) mmol/L Anion Gap 13.8 H (3-11) mmol/L BUN 10 (7-18) mg/dL Creatinine 0.9 (0.55-1.02) mg/dL Est GFR (CKD-EPI 2020) 76.44 (mL/min/1.73m2) Glucose 107 H (74-106) mg/dL Calcium 8.6 (8.5-10.1) mg/dL Magnesium 1.8 (1.8-2.4) mg/dL Total Bilirubin 0.2 (0.2-1.0) mg/dL AST 14 L (15-37) U/L ALT 29 (14-59) U/L Alkaline Phosphatase 82 (46-116) U/L Troponin I Total Protein 7.1 (6.4-8.2) g/dL Albumin 3.7 (3.4-5.0) g/dL ABO/Rh O Positive Antibody Screen NEGATIVE Crossmatch See Detail Intake and Output - 24 Hour Total 01/04/24 12:36 thru 01/04/24 12:47 Weight 63.049 kg Other: Emesis Description None Falls Risk Assessment History of Falls No History 01/04/24 12:47 Contributing Factors No Factors 01/04/24 12:47 Ambulatory Aids Independent 01/04/24 12:47 Tubes/Lines None 01/04/24 12:47 Gait Evaluation No gait disturbance 01/04/24 12:47 Cognition No cognitive impairment 01/04/24 12:47 Fall Total Score 0 01/04/24 12:47 Level of Risk Standard/Low Risk 01/04/24 12:47 Problems (Last Reviewed 01/04/24 @ 15:56 by Reyna Webster DO) S/P LUIZ (total abdominal hysterectomy) (Acute) Acute lower gastrointestinal bleeding (Acute) Hx of iron deficiency (Acute) History of GI bleed (Acute) Anticoagulated (Acute) History of DVT (deep vein thrombosis) (Acute) Hx of iron deficiency anemia (Acute) Hx pulmonary embolism (Chronic) v v v v v v v v v Sending and/or Receiving Nurses: Please use comment section below to note any information pertinent to the patient hand-off not included above. Information / Comments: Report received from: Dean Tarango RN
--- NOTE | 2024-01-04 17:30 | RT.EKG_ITS ---
APPROVED REPORT Exam: Resting ECG Reason for Exam: chest pressure/acute GI bleed/hx of PE R strain Patient Location: I HR:78 bpm ECG Measurements Heart Rate 78 AXIS WI 153 P 46 QRSd 107 QRS 20 QT 388 T 40 QTc 442 Conclusion Sinus rhythm...normal P axis, V-rate 50- 99 Normal Electrocardiogram
[2024-01-04] MEDS: Acetaminophen 500 MG TAB PO (17:59)
[2024-01-04] MEDS: diphenhydrAMINE 25 MG CAP PO (17:59)
[2024-01-04] MEDS: Pantoprazole 40 MG VIAL IVP (17:59)
[2024-01-04] MEDS: DEXTROSE 5%-0.45% SALINE 1,000 ML 75 ML IV (18:53)
[2024-01-04] MEDS: IRON SUCROSE COMPLEX 200 MG in Normal Saline 100 ML 400 MG IVPB (19:58)
[2024-01-04] MEDS: Calcium Carbonate *TUMS* 500 MG CHEW 1000 MG PO (20:50)
[2024-01-04 21:06] LABS: Anion Gap 12.2 mmol/L (3-11); BUN 10 mg/dL (7-18); CO2 18.8 mmol/L (21.0-32.0); CREATININE 0.7 mg/dL (0.55-1.02); Calcium 8.5 mg/dL (8.5-10.1); Chloride 109 mmol/L (98-107); Estimated GFR 103.35 (mL/min/1.73m2); Glucose 98 mg/dL (74-106); Potassium 3.5 mmol/L (3.5-5.1); Sodium 140 mmol/L (136-145); Troponin I < 50 ng/L (< or =60)
[2024-01-04 21:21] LABS: D-Dimer 263 ng/mlFEU (<500)
[2024-01-04 22:05] LABS: Abs Immature Grans 0.02 10^3/uL (0.0-0.06); Absolute Basophil Count 0.03 10^3/uL (0.0-0.2); Absolute Lymphocyte Count 1.98 10^3/uL (1.2-3.4); Absolute Monocyte Count 0.47 10^3/uL (0.1-0.8); Absolute Neutrophil Count 4.19 10^3/uL (1.2-6.7); Basophils % 0.4 %; Eosinophils % 1.5 %; HCT 25.4 % (36.0-46.0); HGB 7.9 g/dL (11.2-15.7); Immature Grans % 0.3 %; Lymphocytes % 29.2 %; MCH 24.8 pg (27.0-33.0); MCHC 31.1 % (32.0-36.0); MCV 80 fL (80-95); MPV 10.1 fL (8.0-11.0); Monocytes % 6.9 %; Neutrophils % 61.7 %; Platelet Count 305 10^3/uL (130-400); RBC 3.19 10^6/uL (3.93-5.22); RDW 15.6 % (11.7-14.6); RDW-SD 45.1 fL; WBC 6.79 10^3/uL (4.4-10.8)
[2024-01-04 22:20] LABS: Magnesium 1.8 mg/dL (1.8-2.4)
[2024-01-04 22:21] LABS: Anion Gap 11.6 mmol/L (3-11); BUN 8 mg/dL (7-18); CO2 19.4 mmol/L (21.0-32.0); CREATININE 0.8 mg/dL (0.55-1.02); Chloride 109 mmol/L (98-107); Estimated GFR 88.05 (mL/min/1.73m2); Glucose 103 mg/dL (74-106); Potassium 3.5 mmol/L (3.5-5.1); Sodium 140 mmol/L (136-145)
[2024-01-04 22:29] LABS: Troponin I < 50 ng/L (< or =60)
[2024-01-04 22:37] LABS: D-Dimer 214 ng/mlFEU (<500)
[2024-01-05] VITALS (32 sets, daily range): BP systolic 93–120; BP diastolic 57–87; PULSE 67–100; RESP 12–28; TEMP 36.5–37.1; O2SAT 91–100
[2024-01-05 06:40] LABS: Abs Immature Grans 0.02 10^3/uL (0.0-0.06); Absolute Basophil Count 0.02 10^3/uL (0.0-0.2); Absolute Eosinophil Count 0.08 10^3/uL (0.0-0.7); Absolute Lymphocyte Count 1.33 10^3/uL (1.2-3.4); Absolute Monocyte Count 0.44 10^3/uL (0.1-0.8); Absolute Neutrophil Count 4.41 10^3/uL (1.2-6.7); Basophils % 0.3 %; Eosinophils % 1.3 %; HCT 26.5 % (36.0-46.0); HGB 8.3 g/dL (11.2-15.7); Immature Grans % 0.3 %; Lymphocytes % 21.1 %; MCHC 31.3 % (32.0-36.0); MCV 80 fL (80-95); MPV 10.3 fL (8.0-11.0); Nucleated RBC 0.3 % (0.0-0.3); Platelet Count 310 10^3/uL (130-400); RBC 3.32 10^6/uL (3.93-5.22); RDW 15.7 % (11.7-14.6); RDW-SD 45.4 fL
[2024-01-05 06:56] LABS: Anion Gap 11.4 mmol/L (3-11); BUN 6 mg/dL (7-18); CO2 19.6 mmol/L (21.0-32.0); CREATININE 0.7 mg/dL (0.55-1.02); Calcium 8.4 mg/dL (8.5-10.1); Chloride 110 mmol/L (98-107); Estimated GFR 103.35 (mL/min/1.73m2); Glucose 119 mg/dL (74-106); Magnesium 1.7 mg/dL (1.8-2.4); Potassium 3.2 mmol/L (3.5-5.1); Sodium 141 mmol/L (136-145)
[2024-01-05 06:58] LABS: Troponin I < 50 ng/L (< or =60)
[2024-01-05] MEDS: DEXTROSE 5%-0.45% SALINE 1,000 ML 75 ML IV ×2 (07:24→20:30)
--- NOTE | 2024-01-05 09:27 | INITIAL_ITS ---
Date of service: 01/05/24 Time of Service: 09:28 Care Management Initial Assmt Initial Assessment REASON FOR HOSPITALIZATION:: lower GI bleed PREVIOUS FUNCTIONAL STATUS/SOCIAL/FAMILY SUPPORTS:: Rahul lives alone in an apartment in [place], [place] She has 2 children, a son and a daughter. Her son lives in [facility] and her daughter is about a mile away. She has a 2 year old grandson as well. 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 She is indepen dent at baseline and does not receive any community services. CURRENT FUNCTIONAL STATUS:: Rahul was sitting up in bed when CM met with her. She was pleasant and engaged well with CM. Rahul shared that she had a similar episode of GI bleeding last April. A colonoscopy was done at the time which identified several diverticula. Rahul is scheduled to have another colonoscopy tomorrow to hopefully find the source of this bleed. She had a Hgb of 6.5 and has received 2 units of RBCs. She has requested to meet with a sprue knocker prior to discharge to discuss foods to eat and what to avoid for the diverticulitis. the request was conveyed to her ICU nurse. ADVANCE DIRECTIVES:: none on file Has patient been provided with info about the portal/API?: Yes Did the patient sign up for the portal?: Yes CODE STATUS:: Full Code INSURANCE COVERAGE / FINANCIAL ISSUES:: BC/BS CURRENT HOME/COMMUNITY SERVICES/EQUIPMENT:: none PRIMARY CARE PHYSICIAN:: Rachel Greene POTENTIAL DISCHARGE NEEDS:: follow up with PCP, surgeon and plan of care PATIENT/FAMILY EDUCATION NEEDS:: Review of discharge instructions, activity, limitations, follow up plan, discuss Ask Me Three TRANSPORTATION:: via private vehicle with family PLAN:: Anticipate Rahul will be discharged home with no new services when medically cleared. She will follow up with her providers and plan of care and transport with family. CM will follow and support discharge planning needs. PFSH All Active Problems (Updated 01/04/24 @ 16:34 by Reyna Webster DO) Acute lower gastrointestinal bleeding (Acute) Hx of iron deficiency (Acute) s/p iron infusions per Dr. Zuniga, post Apr 2023 GI Bleed/[place] History of GI bleed (Acute) Slow bleed per pt report, [place] 04/2024 Hemorrhoids (Acute) Anticoagulated (Acute) History of DVT (deep vein thrombosis) (Acute) Provoked following a car trip to [place]. Patient was never worked up for a clotting disorder Hx of iron deficiency anemia (Acute) Hx pulmonary embolism (Chronic) post embolectomy (possible saddle per pt description) Surgical History (Updated 01/04/24 @ 16:34 by Reyna Webster DO) History of embolectomy Bilateral pulmonary artery embolectomy due to provoked DVT S/P LUIZ (total abdominal hysterectomy) History of History of ERCP for Gallstones Hx of colonoscopy (~04/2023) Hx laparoscopic cholecystectomy Family History Maternal Grandfather Diabetes Maternal Grandmother Diabetes Mother Diabetes Social History Smoking/Tobacco Use Status: Never Smoking risk assessment performed?: Yes Alcohol Intake: never Drug use: Never Substance use type: does not use Household members: family Housing: apartment Number of Children: 2 number of grandchildren: 1 Communication Needs: [employer]enses Education Level: high school current occupation: [employer] in [place] What is your relationship status?: How often do you get together with friends or relatives?: three or more times per week Panel score (0-1 are the most socially isolated patients): 1 What type of physical activity do you participate in: none Working smoke detector in home: Yes Fire extinguisher in home: Yes Carbon monox detector in home: Yes Do you feel safe at home: Yes Do you feel safe in your relationship?: Yes SDOH(Care Management) Screening Will the Patient Participate in the Screening?: Yes Do you worry about having a steady place to live?: no Problems where you live: no known problems In the past 12 months, have you had to go without electric, gas, oil or water in your home?: no Have you or anyone in your house had to go without enough food to eat?: no Has lack of transportation kept you from medical appointments or from doing things needed for daily living?: no Has anyone in your support network made you feel unsafe for any reason?: no
--- NOTE | 2024-01-05 11:38 | PHA.REVIEW2 ---
Pharmacy Admission Review Admission Clinical Review Admission Pharmacy Review: Acute lower gastrointestinal bleeding (Acute) Hx of iron deficiency (Acute) History of GI bleed (Acute) Anticoagulated (Acute) History of DVT (deep vein thrombosis) (Acute) Hx of iron deficiency anemia (Acute) rubber, unspecified Allergy (Intermediate, Verified 01/04/24 13:38) blotchy skin latex Allergy (Unknown, Verified 01/04/24 13:38) hives EKG Tabs Allergy (Intermediate, Uncoded 01/04/24 13:38) Skin Rash seasonal allergies Adverse Reaction (Intermediate, Uncoded 01/04/24 13:38) sinus congestions, ear problems Resuscitation Status Full Code Height 5 ft Weight 109.2 kg Pharmacy Admission Review Renal Dosing Renal Dosing: BUN 6 mg/dL (7-18) L 01/05/24 05:46 Creatinine 0.7 mg/dL (0.55-1.02) 01/05/24 05:46 Medications needing adjustments: Reviewed (CrCl 104.13 mL/min) Anticoagulation Anticoagulation: Hgb 8.3 g/dL (11.2-15.7) L 01/05/24 05:46 Hct 26.5 % (36.0-46.0) L 01/05/24 05:46 Plt Count 310 10^3/uL (130-400) 01/05/24 05:46 INR 1.0 (0.9-1.1) 01/04/24 13:45 Creatinine 0.7 mg/dL (0.55-1.02) 01/05/24 05:46 DVT Prophylaxis: Reviewed (Eliquis on hold due to GI bleed) Relevant Labs Relevant Labs: Sodium 141 mmol/L (136-145) 01/05/24 05:46 Potassium 3.2 mmol/L (3.5-5.1) L 01/05/24 05:46 Chloride 110 mmol/L (98-107) H 01/05/24 05:46 Magnesium 1.7 mg/dL (1.8-2.4) L 01/05/24 05:46 Electrolytes, C-Reactive P, ESR: Reviewed (K 3.2, Mg 1.7, Hgb increased from 7.9 to 8.3 (was 6.5 on admission), glucose 119) Cardiac Review Cardiac Review: Troponin I < 50 ng/L (< or =60) 01/05/24 05:46 BP, HR, EF%: Reviewed (BP/HR WNL) QTc Review QTc: Reviewed (463 from 01/03) IV to PO Switch IV Medications: Reviewed (IV pantoprazole) Home Meds Home Med List reviewed: Reviewed Relevent Home Meds Not ordered & why?: Eliquis (on hold due to GI bleed), famotidine (has order for pantoprazole) and Amarilis (PRN) Current Meds Current Medication Order Review: Reviewed
[2024-01-05] MEDS: Pantoprazole 40 MG VIAL IVP (15:45)
--- NOTE | 2024-01-05 17:41 | PGE_ITS ---
Date of Service Date of service: 01/05/24 Time of Service: 17:41 Assessment and Plan Assessment and plan (1) Acute lower gastrointestinal bleeding: Status: Acute Assessment and plan: This is an unfortunate situation and that she is now experienced her second significant gastrointestinal hemorrhage, with a reasonably compelling source of ongoing therapeutic anticoagulation. I explained that the most likely source of her bleeding is diverticulosis. However, localization of the source remains paramount here since she has now had recurrent episodes of hemorrhage, but irina ins on therapeutic anticoagulation. If there was an intent to discontinue her anticoagulation in the future, then it would probably be reasonable just to transfuse her through this, then reassess once her anticoagulation has been discontinued. And while it still may be worth gaining a second opinion regarding the necessity of lifelong anticoagulation, if we can confirm the source of the bleeding at this time, then that will give us some options in terms of therapeutics in the days and weeks to come. Furthermore, if the source can be localized colonoscopically, or by way of an EGD, then there may be some therapeutic benefit as well. I will bowel prep for tonight, anticipating EGD and colonoscopy tomorrow. Subjective Subjective Interval history since last seen: She continues to have episodes of hematochezia through today, as well as mild sense of abdominal bloating. Her shortness of breath has improved. Exam GI Other: Abdomen is soft and nondistended. She is not tender. Objective Last Vital Signs Temp 98.8 F 01/05/24 07:54 Pulse 76 01/05/24 16:01 Resp 21 01/05/24 16:01 BP 106/60 01/05/24 16:01 Pulse Ox 97 01/05/24 16:01 Laboratory Results - last 24 hr 01/04/24 01/04/24 01/04/24 13:20 17:55 18:56 WBC RBC Hgb Hct MCV MCH MCHC RDW Plt Count MPV Immature Gran % Neutrophils % Lymphocytes % Monocytes % Eosinophils % Basophils % Nucleated RBC % Absolute Neutrophils Absolute Lymphocytes Absolute Monocytes Absolute Eosinophils Absolute Basophils D-Dimer 263 Sodium 140 Potassium 3.5 Chloride 109 H Carbon Dioxide 18.8 L Anion Gap 12.2 H BUN 10 Creatinine 0.7 Est GFR (CKD-EPI 2020) 103.35 Glucose 98 Calcium 8.5 Magnesium Troponin I < 50 Cancelled ABO/Rh O Positive Antibody Screen NEGATIVE Crossmatch See Detail 01/04/24 01/05/24 21:56 05:46 WBC 6.79 6.30 RBC 3.19 L 3.32 L Hgb 7.9 L 8.3 L Hct 25.4 L 26.5 L MCV 80 80 MCH 24.8 L 25.0 L MCHC 31.1 L 31.3 L RDW 15.6 H 15.7 H Plt Count 305 310 MPV 10.1 10.3 Immature Gran % 0.3 0.3 Neutrophils % 61.7 70.0 Lymphocytes % 29.2 21.1 Monocytes % 6.9 7.0 Eosinophils % 1.5 1.3 Basophils % 0.4 0.3 Nucleated RBC % 0.0 0.3 Absolute Neutrophils 4.19 4.41 Absolute Lymphocytes 1.98 1.33 Absolute Monocytes 0.47 0.44 Absolute Eosinophils 0.10 0.08 Absolute Basophils 0.03 0.02 D-Dimer 214 Sodium 140 141 Potassium 3.5 3.2 L Chloride 109 H 110 H Carbon Dioxide 19.4 L 19.6 L Anion Gap 11.6 H 11.4 H BUN 8 6 L Creatinine 0.8 0.7 Est GFR (CKD-EPI 2020) 88.05 103.35 Glucose 103 119 H Calcium 8.0 L 8.4 L Magnesium 1.8 1.7 L Troponin I < 50 < 50 ABO/Rh Antibody Screen Crossmatch Time Spent with Patient Time Spent with Patient: >50 minutes Time was spent: preparing to see the patient(eg.review tests), obtaining and/or reviewing separately otained hiistory, indepentently interpreting results, counseling the patient and care coordination
[2024-01-05] MEDS: Nulytely 4000 ML BTL PO (18:00)
[2024-01-05] MEDS: Ondansetron 4 MG/2 ML VIAL IVP (18:22)
[2024-01-05] MEDS: Normal Saline Flush 10 ML SYR IVP (20:39)
[2024-01-06] VITALS (24 sets, daily range): BP systolic 90–124; BP diastolic 57–77; PULSE 69–86; RESP 12–27; TEMP 36.4–36.9; O2SAT 94–100; BMI 45.8
[2024-01-06] MEDS: Nulytely 4000 ML BTL PO (06:12)
[2024-01-06 06:26] LABS: HCT 23.2 % (36.0-46.0); HGB 7.4 g/dL (11.2-15.7); MCH 25.3 pg (27.0-33.0); MCHC 31.9 % (32.0-36.0); MCV 80 fL (80-95); MPV 10.4 fL (8.0-11.0); Platelet Count 304 10^3/uL (130-400); RBC 2.92 10^6/uL (3.93-5.22); RDW 15.9 % (11.7-14.6); RDW-SD 45.9 fL; WBC 7.33 10^3/uL (4.4-10.8)
[2024-01-06 06:39] LABS: Anion Gap 12.3 mmol/L (3-11); BUN 3 mg/dL (7-18); CO2 21.7 mmol/L (21.0-32.0); CREATININE 0.7 mg/dL (0.55-1.02); Calcium 7.9 mg/dL (8.5-10.1); Chloride 110 mmol/L (98-107); Estimated GFR 103.35 (mL/min/1.73m2); Glucose 117 mg/dL (74-106); Sodium 144 mmol/L (136-145)
[2024-01-06 06:40] LABS: Magnesium 1.6 mg/dL (1.8-2.4)
[2024-01-06] MEDS: DEXTROSE 5%-0.45% SALINE 1,000 ML 75 ML IV (07:38)
[2024-01-06] MEDS: POTASSIUM CHLORIDE 20 MEQ/100 ML BAG 50 MEQ IVINF ×2 (07:40→15:02)
[2024-01-06] MEDS: ACETAMINOPHEN 1,000 MG/100 ML BTL 400 MG IVPB (08:04)
--- NOTE | 2024-01-06 09:11 | CMPROGNOTE_ITS ---
Date of service: 01/06/24 Time of Service: 09:11 Care Management Progress Note Progress Note Text Progress Note Text: S/O: Rahul remains inpatient, awaiting results of EGD and Colonoscopy, scheduled for today. CM following. A: 53 year old female admitted to [facility] 01/04/24 for Gastrointestinal hemmorage P: Anticipate Rahul will be discharged home with no new services when medically cleared. She will follow up with her providers and plan of care and transport with family. CM will follow and support discharge planning needs. SDOH(Care Management) Screening Will the Patient Participate in the Screening?: Yes Do you worry about having a steady place to live?: no Problems where you live: no known problems In the past 12 months, have you had to go without electric, gas, oil or water in your home?: no Have you or anyone in your house had to go without enough food to eat?: no Has lack of transportation kept you from medical appointments or from doing things needed for daily living?: no Has anyone in your support network made you feel unsafe for any reason?: no
--- NOTE | 2024-01-06 10:36 | W.PM.PROGNOT ---
Date of Service Date of service: 01/06/24 Time of Service: 10:36 Assessment and Plan Assessment and plan (1) Acute lower gastrointestinal bleeding: Status: Acute Assessment and plan: Will proceed with upper endoscopy and colonoscopy today to see if we can identify the source of bleeding. If were not able to localize with that, bleeding scan may be the next best option. Also transfuse a unit of packed red blood cells, and continue to trend hemoglobin. Subjective Subjective Interval history since last seen: Rahul has a headache this morning, but otherwise did pretty well overnight. Bowel prep has been going okay, and hemoglobin is decreased a little bit today compared to yesterday. Generally, however, her hemodynamics remained favorable. Exam GI Other: Abdomen soft and nondistended. Objective Last Vital Signs Temp 97.9 F 01/06/24 10:08 Pulse 71 01/06/24 10:08 Resp 16 01/06/24 10:08 BP 105/65 01/06/24 10:08 Pulse Ox 99 01/06/24 10:08 Laboratory Results - last 24 hr 01/04/24 01/05/24 01/06/24 13:20 23:04 05:52 WBC 7.33 RBC 2.92 L Hgb 7.4 L Hct 23.2 L MCV 80 MCH 25.3 L MCHC 31.9 L RDW 15.9 H Plt Count 304 MPV 10.4 Sodium 144 Potassium 3.0 L Chloride 110 H Carbon Dioxide 21.7 Anion Gap 12.3 H BUN 3 L Creatinine 0.7 Est GFR (CKD-EPI 2020) 103.35 Glucose 117 H Calcium 7.9 L Magnesium Cancelled 1.6 L ABO/Rh O Positive Antibody Screen NEGATIVE Crossmatch See Detail Time Spent with Patient Time Spent with Patient: 25-34 minutes Time was spent: preparing to see the patient(eg.review tests), indepentently interpreting results and counseling the patient
--- NOTE | 2024-01-06 11:42 | ANES.PREOP_ITS ---
General Info Date of Service Date Performed: 01/06/24 Height: 5 ft Weight: 106.4 kg Body Mass Index (BMI): 45.8 Surgical Procedure: Operation Date: 01/06/24 10:50 Proposed Procedure Side Surgeon p Colonoscopy/Gastroscopy Anuel Keita MD Meds Allergies and Home Medications Allergies Allergy/AdvReac Type Severity Reaction Status Date / Time rubber, unspecified Allergy Intermediate blotchy Verified 01/04/24 13:38 skin latex Allergy Unknown hives Verified 01/04/24 13:38 EKG Tabs Allergy Intermediate Skin Rash Uncoded 01/04/24 13:38 seasonal allergies AdvReac Intermediate sinus Uncoded 01/04/24 13:38 congestions, ear problems Home Medication Medication Instructions Recorded fexofenadine 60 mg tablet (Amarilis 60 mg PO Q12H PRN 10/20/22 Allergy) albuterol sulfate 90 mcg/actuation 2 puff inhalation Q6H PRN 01/06/23 aerosol inhaler (Ventolin HFA) shortness of breath or wheezing #8.5 grams OTC FLuid Pill 1 tab PO DAILY PRN Edema 04/27/23 apixaban 2.5 mg tablet (Eliquis) 2.5 mg PO BID 09/08/23 famotidine 20 mg tablet 20 mg PO BID 01/04/24 montelukast 10 mg tablet 10 mg PO DAILY PRN 01/04/24 (Singulair) Current Visit Medications: Current Medications Generic Name Dose Route Start Last Admin Trade Name Freq PRN Reason Stop Dose Admin Albuterol Sulfate 2 puff 01/04/24 15:49 Albuterol Hfa 8 Gm 60 Puff Inh IH Q6H PRN PRN shortness of breath or wheezing Calcium Carbonate 1,000 mg 01/04/24 20:32 01/04/24 20:50 Calcium Carbonate *Tums* 500 Mg Chew PO 1,000 mg TID PRN PRN Administration Device 1 each 01/04/24 16:00 Inhaler, Assist Device MC DIRECTED KAVEH Dextrose/Sodium Chloride 1,000 mls @ 75 mls/hr 01/04/24 15:45 01/06/24 09:54 Dextrose 5%-0.45% Ns IV 0 mls/hr INFUSION KAVEH Infusion Potassium Chloride 20 meq in 100 mls @ 50 mls/hr 01/06/24 08:00 01/06/24 09:50 IVINF 01/06/24 11:59 0 mls/hr Q2H KAVEH Infusion IV Miscellaneous Supplies 1 each 01/04/24 15:45 Iv Access IV DIRECTED KAVEH Montelukast Sodium 10 mg 01/04/24 15:49 Montelukast 10 Mg Tab PO DAILY PRN PRN Ondansetron HCl 4 mg 01/05/24 17:06 01/05/24 18:22 Ondansetron 4 Mg/2 Ml Vial IVP 4 mg Q8H PRN PRN Administration Pantoprazole Sodium 40 mg 01/04/24 16:00 01/05/24 15:45 Pantoprazole 40 Mg Vial IVP 40 mg Q24H KAVEH Administration Sodium Chloride 0 ml 01/04/24 15:40 Normal Saline Flush 10 Ml Syr IVP PRN PRN Sodium Chloride 0 ml 01/04/24 20:00 01/06/24 07:53 Normal Saline Flush 10 Ml Syr IVP Not Given BID KAVEH Sodium Chloride 0 ml 01/04/24 15:40 Normal Saline 10 Ml Vial IJ DIRECTED PRN Sodium Cl/Sod Bicarb/Potass Cl/PEG 4,000 ml 01/05/24 18:00 01/06/24 06:12 Nulytely 4000 Ml Btl PO 1 btl DIRECTED KAVEH Administration PFSH Active Problems Active Problems: Problem Status Onset Code Acute lower gastrointestinal bleeding K92.2 Hx of iron deficiency Z86.39 History of GI bleed Z87.19 Hemorrhoids K64.9 Anticoagulated Z79.01 History of DVT (deep vein thrombosis) Z86.718 Hx of iron deficiency anemia Z86.2 Hx pulmonary embolism Z86.711 Surgical History Surgical History (Updated 01/04/24 @ 16:34 by Reyna Webster DO) History of embolectomy Bilateral pulmonary artery embolectomy due to provoked DVT S/P LUIZ (total abdominal hysterectomy) History of History of ERCP for Gallstones Hx of colonoscopy (~04/2023) Hx laparoscopic cholecystectomy Tobacco Smoking/Tobacco Use Status: Never Alcohol Alcohol Intake: never Substance Use Substance use: Never Substance use type: does not use Vital Signs and Lab Results Vital Signs Most Recent Vital Signs in EMR: Most Recent Vital Signs Temp Pulse Resp BP Pulse Ox 36.7 C 79 17 121/69 98 01/06/24 11:21 01/06/24 11:21 01/06/24 11:21 01/06/24 11:21 01/06/24 11:21 Point of Care Results Point of Care Results: Finger Stick Blood Glucose 103 01/04/24 16:55 Lab Results 01/06/24 05:52 01/06/24 05:52 Blood Type / Crossmatch: 2 Antibody Screen NEGATIVE 01/04/24 Crossmatch See Detail 01/04/24 Complete Blood Count: 2 White Blood Count 7.33 10^3/uL (4.4-10.8) 01/06/24 05:52 Red Blood Count 2.92 10^6/uL (3.93-5.22) L 01/06/24 05:52 Hemoglobin 7.4 g/dL (11.2-15.7) L 01/06/24 05:52 Hematocrit 23.2 % (36.0-46.0) L 01/06/24 05:52 Platelet Count 304 10^3/uL (130-400) 01/06/24 05:52 Complete Metabolic Panel: 2 Sodium 144 mmol/L (136-145) 01/06/24 05:52 Potassium 3.0 mmol/L (3.5-5.1) L 01/06/24 05:52 Chloride 110 mmol/L (98-107) H 01/06/24 05:52 Carbon Dioxide 21.7 mmol/L (21.0-32.0) 01/06/24 05:52 BUN 3 mg/dL (7-18) L 01/06/24 05:52 Creatinine 0.7 mg/dL (0.55-1.02) 01/06/24 05:52 Est GFR (CKD-EPI 2020) 103.35 (mL/min/1.73m2) 01/06/24 05:52 Magnesium 1.6 mg/dL (1.8-2.4) L 01/06/24 05:52 Calcium 7.9 mg/dL (8.5-10.1) L 01/06/24 05:52 Albumin 3.7 g/dL (3.4-5.0) 01/04/24 13:20 Glucose 117 mg/dL (74-106) H 01/06/24 05:52 Liver Function Panel: 2 Alanine Aminotransferase (ALT/SGPT) 29 U/L (14-59) 01/04/24 13: 20 Aspartate Amino Transf (AST/SGOT) 14 U/L (15-37) L 01/04/24 13: 20 Coagulation Panel: 2 INR International Normalized Ratio 1.0 (0.9-1.1) 01/04/24 13:4 5 Prothrombin Time 10.0 sec (9.1-11.1) 01/04/24 13:45 Activated Partial Thromboplast Time 23.9 sec (23.6-32.8) 13:45 D-Dimer 214 ng/mlFEU (<500) 01/04/24 21:56 Cardiac Panel: 2 Troponin I < 50 ng/L (< or =60) 01/05/24 Arterial Blood Gas: 2 No Data to Display Venous Blood Gas: 2 No Data to Display Pancreas Panel: 2 No Data to Display Thyroid Panel: 2 No Data to Display Infectious Disease: 2 No Data to Display Blood Cultures: 2 No Data to Display Toxicology Panel: 2 No Data to Display Panel: 2 No Data to Display Imaging and Studies Imaging and Studies Study information below may be from another EMR and interpreted by another provider. Please see original notes in EMR for more complete details. Echocardiogram Summary: 10/29: LVEF 60%, RVSP 18 mmhg, no sig valvular dz. Anesthesia Assessment and Plan Anesthesia History Personal History: No History of Anesthesia Complications Family History: No Family History of Anesthesia Complications Exercise Tolerance Exercise Tolerance: Metabolic Equivalents>4 Pertinent Negatives Pertinent Negatives: No Symptoms of GERD Cardiac & Pulmonary Exam Cardiac Exam: Normal S1/S2 Heart Sounds Pulmonary Exam: Clear Bilateral Breath Sounds Implantable Cardiac Device Does patient have a Pacemaker or an ICD?: No Airway Exam Known Difficult Airway: No Mallampati Class: 3 Mouth Opening: Narrow (< 3cm) Thyromental Distance: Greater than 3 cm Neck Range of Motion: Full ROM Neck Circumference: Thick Teeth Condition: Normal Dentition ASA Classification ASA Score: ASA 3 Emergency Case?: Yes NPO Status NPO Status: NPO Clears >2 hours, Solids >8 hours Status Status: Not Relevant due to Medical History Anesthesia Plan Resuscitation Status: Full Code Anesthesia Technique: General Anesthesia Airway Planned: Natural Airway Monitors Used: Standard Monitors
[2024-01-06] MEDS: Lactated Ringers 1,000 ML 50 ML IV (11:55)
--- NOTE | 2024-01-06 13:14 | W.PM.ENDDOP ---
Date of service: 01/06/24 Time of Service: 13:14 Endoscopy Report DATE OF PROCEDURE: 01/06/24 PRE-OP DIAGNOSIS: GI bleed POST-OP DIAGNOSIS: other (Normal EGD and nonbleeding diverticular disease in the colon) PROCEDURE: Diagnostic EGD and colonoscopy SURGEON: Anuel Keita ANESTHESIA TYPE: General:No Airway ESTIMATED BLOOD LOSS: 0 PATHOLOGY: none sent COMPLICATIONS: None DISPOSITION: PACU INDICATIONS: Anu Brennan is a 53-year-old woman who requires therapeutic anticoagulation for DVT and PE who was admitted with symptomatic anemia and hematochezia. Her anticoagulation was held and she was resuscitated with blood products. We are attempting diagnostic EGD and colonoscopy to help localize the source of GI bleeding PREP: Yadi PROCEDURE START TIME: 12:10 PROCEDURE END TIME: 12:29 COLONOSCOPY RETRACTION TIME: 7 FINDINGS: Normal EGD with GE junction and Z-line measuring 36 cm from the incisors; nonbleeding left-sided diverticular disease PROCEDURE DESCRIPTION: After the initiation of monitored anesthetic care, and with the assistance of a bite block, I advanced a standard gastroscope through the mouth past the hypopharynx and into the esophagus.? Under the direct vision of the scope, I advanced down the esophagus towards the stomach.? A normal-appearing Z-line was encountered with the GE junction measuring 36 cm from the incisors. I advanced the camera down into the stomach which was empty. There was no evidence of any recent bleeding. Stomach was insufflated into the rugae were obliterated. Retroflexion was performed. The gastric cardia and body were normal. I advanced the camera down around the incisura angularis towards the antrum. The antrum and pylorus are normal and healthy appearing. I advanced the camera down through the pylorus into the duodenum and advanced to the third portion of the duodenum. All the mucosa was normal and healthy, with no evidence of any recent bleeding. Next I emptied the duodenum, brought the camera back up into the stomach which was also emptied, and finally remove the camera out along the length of the esophagus. We then rolled Rahul into the left lateral decubitus position. External anorectal exam demonstrated some evidence of previous external hemorrhoids. Digital rectal exam was normal. The camera was introduced into the rectal vault. There was no evidence of any hematochezia or melena. Retroflexion was performed. There are internal hemorrhoids without any signs of recent bleeding. The camera was turned antegrade, and gently advanced through the sigmoid colon. There is sigmoid and left-sided diverticulosis. Great care was taken to examine the diverticula along the segment. There was no evidence of any blood here, nor was there any signs of active inflammation or recent bleeding from the segment. The camera was advanced up around the splenic flexure, along the transverse colon, down the ascending colon and into the cecum. There was a small amount of bile tinged fluid in the cecal vault. This was all irrigated clean. There was no evidence of any bleeding here. The camera was then gently withdrawn all along the length of the colon. [place] bowel prep score was 3, 3, 3 from right to left, and the visualization was excellent. Again, I did not see any signs of any recent bleeding. The camera was withdrawn, and the patient was allowed to awaken from the anesthetic prior to transfer to the recovery unit.
--- NOTE | 2024-01-06 14:02 | W.ANESPOSTOP ---
Postoperative Evaluation Date, Time and Location Date Performed: 01/06/24 Time Performed: 14:03 Patient Location: Intensive Care Unit Vital Signs Most Recent Imported Vital Signs: Most Recent Vital Signs Temp Pulse Resp BP Pulse Ox 36.5 C 73 22 90/64 L 100 01/06/24 12:26 01/06/24 12:26 01/06/24 12:26 01/06/24 12:01/06/24 12:26 Pain Score Most Recent Pain Score: Most Recent Pain Score Pain Level 3 01/06/24 08:04 Assessment Mental Status: Awake (Alert & Oriented to Patient Baseline) Airway and Respiratory Function: Patent airway with normal (patient baseline) respiratory exam Cardiovascular Function: Hemodynamically Stable Hydration Status: Adequately Hydrated Nausea & Vomiting: No Nausea or Vomiting Pain: Pt. Denies Any Pain Peripheral Nerve Block: Patient did not receive a nerve block
--- NOTE | 2024-01-06 14:05 | W.ANESVAS ---
Midline Placement Date Performed: 01/06/24 Procedure Time: 14:05 Requesting Provider: Anuel Keita Procedure Location: Operating Room Sedation Given (Indicate Dose Given): No Sedation given Patient Mental Status: Performed under general anesthesia Sterility: Hand Hygiene, Surgical Mask, Sterile Gloves, Eye Protection and Chlorhexidine Laterality: Left Insertion Site: Basilic Midline Device: PowerGlide Pro 20G Catheter Length: 8 cm Midline Procedure Procedure: Vessel accessed with catheter over needle, Guidewire placed with ease and Catheter placed without resistance Dressing: Tegaderm Applied and Mastisol Used Blood Return: Present Flushes: Easily Ultrasound: Sterile probe cover and gel used Ultrasound Image Saved?: Yes Number of Attempts (See previous attempts in note section): 2 Procedure Tolerated: Patient tolerated well Procedure Outcome: Successful Performed By: Raad Davey Other (not listed above): Chris Peñaloza CRNA
--- NOTE | 2024-01-06 14:36 | CHAPLAIN ---
I had a brief visit with Anu Brennan. She wasn't interested in further conversation. I explained my role and offered support.
[2024-01-06] MEDS: Normal Saline Flush 10 ML SYR IVP ×2 (15:50→20:37)
[2024-01-06] MEDS: Pantoprazole 40 MG VIAL IVP (15:50)
[2024-01-06] MEDS: Normal Saline 10 ML VIAL IJ (15:50)
[2024-01-07] VITALS (26 sets, daily range): BP systolic 89–127; BP diastolic 54–92; PULSE 70–86; RESP 11–25; TEMP 36.5–37.1; O2SAT 98
--- NOTE | 2024-01-07 | DI.NM_ITS ---
Exam(s) NM GI BLEED TAGGED RBC GRP CLINICAL HISTORY: GI bleeding with negative EGD and colonoscopy. COMPARISON: No exams were available for comparison EXAMINATION: Dose: 12 milligram cold pyrophosphate with 30 minute delayed injection of 29.5 mCi free technetium Images: Immediately for 1 minute followed by dynamic for 1 hour followed by a 4 hour delay. FINDINGS: The immediate post-injection phase reveals no obvious intraluminal extravasation of injected radiopha rmaceutical. Images performed out to 1 hour reveal activity in the lining of the stomach which is not consistent w ith bleeding. There is no radionuclide activity outside of the expected blood pool structures and no movement of ac tivity conforming to bowel loops. IMPRESSION: 1. No evidence of active GI bleeding
[2024-01-07] MEDS: Acetaminophen 500 MG TAB 1000 MG PO (04:42)
[2024-01-07 05:55] LABS: HCT 26.9 % (36.0-46.0); HGB 8.3 g/dL (11.2-15.7); MCH 25.5 pg (27.0-33.0); MCHC 30.9 % (32.0-36.0); MCV 83 fL (80-95); MPV 9.6 fL (8.0-11.0); Platelet Count 278 10^3/uL (130-400); RBC 3.26 10^6/uL (3.93-5.22); RDW 16.1 % (11.7-14.6); RDW-SD 47.8 fL; WBC 6.95 10^3/uL (4.4-10.8)
[2024-01-07] MEDS: Normal Saline Flush 10 ML SYR IVP ×2 (07:30→16:48)
--- NOTE | 2024-01-07 11:00 | PDOC.CMPRO ---
Date of service: 01/07/24 Time of Service: 11:00 Care Management Progress Note Progress Note Text Progress Note Text: S/O: Rahul was sitting up in a chair when CM met with her. She was a bit teary and explained that she is tired and just wants answers. She had a colonoscopy and EGD yesterday which did not identify the source of her bleeding. Today she went to Nuclear medicine for a bleeding Scan but has not been told the results yet. 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 Clinically, she stated that she feels well and her Hgb seems to have stabilized at 8.3. She has not required any transfusions since Wednesday. A: 53 year old female admitted to [facility] 01/04/24 for Gastrointestinal hemmorage P: Anticipate Rahul will be discharged home with no new services when medically cleared. She will follow up with her providers and plan of care and transport with family. CM will follow and support discharge planning needs. SDOH(Care Management) Screening Will the Patient Participate in the Screening?: Yes Do you worry about having a steady place to live?: no Problems where you live: no known problems In the past 12 months, have you had to go without electric, gas, oil or water in your home?: no Have you or anyone in your house had to go without enough food to eat?: no Has lack of transportation kept you from medical appointments or from doing things needed for daily living?: no Has anyone in your support network made you feel unsafe for any reason?: no
[2024-01-07] MEDS: Pantoprazole 40 MG VIAL IVP (16:48)
[2024-01-07] MEDS: Aspirin E.C. 325 MG TABEC PO (17:27)
--- NOTE | 2024-01-07 17:47 | DSE_ITS ---
Date of service: 01/07/24 Time of Service: 17:48 DS: Diagnosis Discharge Diagnosis (1) Acute lower gastrointestinal bleeding: Status: Acute Discharge Plan Disposition Patient Disposition: Home Condition: Good Discharge Details Reason For Visit: Low Backer GI bleed/Suspect Diverticula/Anti-Coagu Admit Date/Time: 01/04/24 15:40 Admit Provider: Reyna Webster Attending Provider: Reyna Webster Primary Care Provider: Rachel Greene Hospital Course Hospital Course: see addendum Home Meds and New Rx's Prescriptions: New aspirin 325 mg capsule 325 mg PO DAILY Qty: 30 12RF Continued OTC FLuid Pill 1 tab PO DAILY PRN (Reason: Edema) fexofenadine [Amarilis Allergy] 60 mg tablet 60 mg PO Q12H PRN albuterol sulfate [Ventolin HFA] 90 mcg/actuation HFA aerosol inhaler 2 puff inhalation Q6H PRN (Reason: shortness of breath or wheezing) Qty: 8.5 4RF famotidine 20 mg tablet 20 mg PO BID Rx Instructions: TAKE ONE TABLET BY MOUTH TWICE A DAY montelukast [Singulair] 10 mg tablet 10 mg PO DAILY PRN Held Eliquis 2.5 mg tablet 2.5 mg PO BID Hold Instructions: Resume on 02/07/24. Discharge Instructions Additional Instructions: -No driving for 24 days - [facility]: [phone] -Follow-up in surgery clinic next week. You will need to call for an appt on Wednesday. Labs prior to the appt. -soft diet: No beef/pork raw vegetables x1 -week. Cooked vegetables are fine. See below -no straining to move bowels -if you do not move your bowels daily take a dose of OTC Miralax -It is ok to shower. -You may find that your appetite is smaller. Eat 3-6 small meals throughout the day. It is important to drink lots of water after surgery, 6-10 glasses a day. -We do want you up walking, at least 5-6 times per day. This is very important to prevent pneumonia and blood clots. You can climb stairs, take them slowly. -You may find that you are very tired after being in the hospital. -Full dose baby aspirin daily. Take with food. Do not take any ibuprofen/Motrin/Naprosyn/Aleve while taking aspirin. Tylenol is okay. -Hold your Eliquis. -If you have any chest pain, shortness of breath, leg pain or swelling, or recurrent GI bleeding, please come to the emergency department and immediately. -My office will put in a consult for hematology at [facility]. They should be contacting you in 2 weeks time to schedule an appointment. You do need to be off of the Eliquis a full 14 days before we can draw labs for a clotting disorder. Gastrointestinal Soft Diet Overview Overview What is a gastrointestinal soft diet? This diet is soft in texture, low in fiber, and easy to digest. The goal is to decrease) ?in the bowel that may cause and discomfort. This diet is often used after abdominal surgery or as a transitional diet after flares. Meats & Meat Substitutes ?? Foods Allowed: Chicken, turkey, fish, tender cuts of beef and pork, ground meats, eggs, creamy nut butters, tofu, skinless hot dogs, sausage patties without whole spices ?? Foods to Avoid : Tough, fibrous meats with gristle, meat with casings (hot dogs, sausage, kielbasa), lunch meats with whole spices, shellfish, beans, chunky peanut butter, nuts Fruits and Juices ?? Foods Allowed: Fruit juices without pulp, banana, avocado, applesauce, canned peaches and pears, cooked fruit without the skin/seeds.? Ground or over- cooked fruits.? Fruits ground finely in a ?smoothie?. ?? Foods to Avoid: Juices with pulp, fresh fruit (except banana and avocado), dried fruits, canned fruit cocktail and pineapple, coconut, frozen/thawed berries Vegetables ?? Foods Allowed: Well-cooked or canned vegetables, potatoes without skin, tomato sauces, vegetable juice ?? Foods to Avoid: Raw vegetables, all corn, all mushrooms, stewed tomatoes, potato skins, stir-mcmillan vegetables, sauerkraut, pickles, olives, all dried beans, peas, and legumes Cereals and Grains ?? Foods Allowed: Low- fiber dry or cooked cereals (less than 2 grams fiber per serving), white rice, pasta, macaroni, or noodles ?? Foods to Avoid: Cereals with nuts, berries, dried fruits, whole grain cereals, bran cereals, granola, brown or wild rice, whole grain pasta Breads and Crackers ?? Foods Allowed: White/refined breads and rolls, plain bagel, toast, plain crackers, pranay crackers ?? Foods to Avoid: Whole grain breads- including white whole grain; bread/ rolls with raisins, nuts or seeds, multi-grain crackers Dairy ?? Foods Allowed: Milk, cheese, yogurt, milkshakes, pudding, ice cream, cottage cheese, sherbet ;?lactose free or low lactose versions if lactose intolerant ?? Foods to Avoid: Dairy product mixed with fresh fruit (except banana), berries, nuts or seeds Desserts ?? Foods Allowed: Plain cake, pudding, custard, ice cream, sherbet, gelatin, fruit whips ?? Foods to Avoid: Any dessert that contains nuts, dried fruits, coconut, or fruits with seeds Herbs and Spices ?? Foods Allowed: All ground spices or herbs, salt ?? Foods to Avoid: Whole spices such as peppercorns, whole cloves, anise seeds, celery seeds, sahil, kaykay seeds, and fresh herbs Snacks/Other Foods ?? Foods Allowed: Sugar, honey, jelly, mayonnaise, mustard, soy sauce, oil, butter, margarine, marshmallows, cookies without dried fruits or nuts, snack chips and pretzels using refined flours ?? Foods to Avoid: Carbonated beverages, jams or jellies with seeds, popcorn After several weeks, slowly start to reintroduce the ?Foods to Avoid? back into your diet unless your doctor has told you otherwise. Try a small portion of one of these foods each day. If it does not bother you within 24 hours, it can be added to your diet. Continue to add new foods in this way. Some people may continue to have food sensitivities and may need to continue to avoid certain foods. If you cannot tolerate a food, avoid that food for a few weeks before you try it again. Guidelines when eating 1.??? Avoid any food that you cannot tolerate or that causes gas, bloating, or stomach pain. 2.??? Make time for your meals. Do not eat while you are in a hurry. Cut your food into small pieces. Chew each bite to a mashed potato consistency. Do not eat when you cannot concentrate on chewing well. 3.??? Drink at least 6-8 cups of fluid per day? Fluids include: water, coffee, tea, juice, milk, popsicles, soups, gelatin, pudding, ice cream, sherbet, and yogurt. In addition, choose caffeine-free beverages more often, especially if you are having?diarrhea. 4.??? A daily multivitamin may be recommended if diet is limited in amounts or variety of foods. Do not take any herbal supplements without first checking with your doctor. Activity:: Activity as Tolerated Equipment/Supplies:: No Equipment Needed Diet:: soft diet Discharge Orders Discharge Orders: Discharge Order (Routine); Ordered 01/07/24 Ordered By: Reyna Webster DS: Summary Time Spent with Patient providing and/or coordinating discharge services: Less than 30 minutes Status at Discharge Functional status at discharge: independent ambulation Overall status at discharge: patient is progressing back to baseline Mental Status: mental status grossly normal Speech and Movement: speech and movement normal Mood: congruent mood Affect: normal affect Quality:SDOH Health Related Social Needs: No Data to Display Exam Psych Mental Status: mental status grossly normal Speech and Movement: speech and movement normal Mood: congruent mood Affect: normal affect DS: Data Vitals/I&O Vitals and I&O: Vital Signs Temperature 36.5 C 01/07/24 15:30 Temperature Source Tympanic 01/07/24 15:30 Pulse 76 01/07/24 15:30 Pulse Rhythm Regular 01/07/24 15:30 Pulse 72 01/07/24 13:07 Respiratory Rate 18 01/07/24 15:30 Respiratory Effort Normal 01/07/24 15:30 Respiratory Depth Normal 01/07/24 15:30 Respiratory Pattern Normal 01/07/24 15:30 Blood Pressure 121/85 01/07/24 15:30 Blood Pressure Mean 94 01/07/24 13:07 Blood Pressure Position Sitting 01/05/24 23:48 Pulse Oximetry 98 01/07/24 15:30 Oxygen Delivery Method Room Air 01/07/24 15:30 Oxygen Flow Rate 0 01/07/24 15:30 Pain Level 0 01/07/24 15:30 Intake & Output 01/06/24 01/07/24 01/07/24 23:59 11:59 23:59 Intake Total 1631.250 / 2829.583 360 / 720 360 / 720 Output Total 950 / 3200 650 / 950 300 / 950 Balance 681.250 / -370.417 -290 / -230 60 / -230 Weight 107.2 kg Intake: IV 661.250 / 1859.583 Oral 720 / 720 360 / 720 360 / 720 Blood Product 250 / 250 Rbc Leuko Reduced Unit 250 / 250 [id number] Output: Urine 950 / 3200 650 / 950 300 / 950 Other: Urine Color Yellow Yellow Yellow Urine Appearance Clear Clear Clear Urine Odor Normal Comment Volume includes loose stool Stool Size Large Stool Characteristics Soft Brown Voiding Methods Bedside Commode Bedside Commode Data Completed and Pending Labs on day of discharge: Labs from last 24 hours 01/07/24 05:45 WBC 6.95 RBC 3.26 L Hgb 8.3 L Hct 26.9 L MCV 83 MCH 25.5 L MCHC 30.9 L RDW 16.1 H Plt Count 278 MPV 9.6 PFSH All Active Problems (Updated 01/04/24 @ 16:34 by Reyna Webster DO) Acute lower gastrointestinal bleeding (Acute) Hx of iron deficiency (Acute) s/p iron infusions per Dr. Zuniga, post Apr 2023 GI Bleed/[place] History of GI bleed (Acute) Slow bleed per pt report, [place] 04/2024 Hemorrhoids (Acute) Anticoagulated (Acute) History of DVT (deep vein thrombosis) (Acute) Provoked following a car trip to [place]. Patient was never worked up for a clotting disorder Hx of iron deficiency anemia (Acute) Hx pulmonary embolism (Chronic) post embolectomy (possible saddle per pt description) Surgical History (Updated 01/04/24 @ 16:34 by Reyna Webster DO) History of embolectomy Bilateral pulmonary artery embolectomy due to provoked DVT S/P LUIZ (total abdominal hysterectomy) History of History of ERCP for Gallstones Hx of colonoscopy (~04/2023) Hx laparoscopic cholecystectomy Family History Maternal Grandfather Diabetes Maternal Grandmother Diabetes Mother Diabetes Social History Smoking/Tobacco Use Status: Never Smoking risk assessment performed?: Yes Alcohol Intake: never Drug use: Never Substance use type: does not use Household members: family Housing: apartment Number of Children: 2 number of grandchildren: 1 Communication Needs: Corrective Lenses Education Level: high school current occupation: [employer] in [place] What is your relationship status?: How often do you get together with friends or relatives?: three or more times per week Panel score (0-1 are the most socially isolated patients): 1 What type of physical activity do you participate in: none Working smoke detector in home: Yes Fire extinguisher in home: Yes Carbon monox detector in home: Yes Do you feel safe at home: Yes Do you feel safe in your relationship?: Yes Time Spent with Patient Time Spent with Patient: <45 minutes Time was spent: preparing to see the patient(eg.review tests), obtaining and/or reviewing separately otained hiistory, ordering medications,tests, procedures, referring, communicating with other health field care coordinator, indepentently interpreting results, counseling the patient and care coordination
== END 2024-01-07 19:00 | disposition home or self-care (01) | DRG 379 ==
LOC: ER 15:47 → ICU 16:26
PROVIDERS: Surgery; Admitting Provider Surgery; Emergency Provider Nurse Practitioner Family; PCP Nurse Practitioner; Visit Provider Surgery
PROC: 0DJ08ZZ Inspection of Upper Intestinal Tract, Via Natural or Artificial Opening Endoscopic (ICD-10-PCS; CPT 43235; principal; 2024-01-06 10:45)
DX: K57.31 Diverticulosis of large intestine without perforation or abscess with bleeding (principal); D50.0 Iron deficiency anemia secondary to blood loss (chronic); Z79.01 Long term (current) use of anticoagulants; Z86.718 Personal history of other venous thrombosis and embolism; Z86.711 Personal history of pulmonary embolism; K64.8 Other hemorrhoids
CPT/HCPCS: 43235; 45378; 36415; 36430; 80048; 80053; 85027; 86850; 86900; 86901; 86920; 93005; 96374; 99285; 74174; 78278; 83735; 84484; 85025; 85379; 85610; 85730; 93010; J0131; J1756; J2001; J2371; J2405; J2470; J2704; J3480; J3490; P9016

== ENCOUNTER 2024-01-12 12:46 | Outpatient (CLI) | payer BC, SELFPAY ==
[2024-01-12 10:27] LABS: HCT 30.3 % (36.0-46.0); HGB 9.3 g/dL (11.2-15.7)
== END 2024-01-12 12:47 | disposition home or self-care (01) ==
LOC: LBO 12:47
PROVIDERS: PCP Nurse Practitioner; Visit Provider Surgery
DX: K92.89 Other specified diseases of the digestive system (principal)
CPT/HCPCS: 36415; 85014; 85018

== ENCOUNTER 2024-02-03 16:55 | Outpatient (CLI) | payer BC, SELFPAY ==
[2024-02-03 16:45] LABS: Ferritin 11 ng/mL (8-252)
[2024-02-04 12:08] LABS: Antithrombin 3, Funct. 128 % (85-125)
[2024-02-05 12:03] LABS: Protein S Ag, Free 105 % (65 - 160)
[2024-02-05 14:41] LABS: Coag Factor VII Assay, P 131 % (65 - 180)
[2024-02-07 09:18] LABS: Prothrombin G20210A Mutation Negative (Negative)
[2024-02-07 10:44] LABS: Activated Partial Thrombo Time 29 sec (25 - 37); DRVVT Screen Ratio 1.05 ratio (<1.20)
[2024-02-07 21:45] LABS: Phospholipid Ab, IgG <9.4 GPL; Phospholipid Ab, IgM 15.6 MPL
[2024-02-09 12:19] LABS: Protein C, Functional >150 % (71-199); Protein S, Functional 117 % (64-147)
[2024-02-09 15:00] LABS: Protein C Ag, P >180 % (72-160)
== END 2024-02-03 16:56 | disposition home or self-care (01) ==
LOC: LBO 16:56
PROVIDERS: PCP Nurse Practitioner; Visit Provider Surgery
DX: D50.9 Iron deficiency anemia, unspecified (principal); Z86.718 Personal history of other venous thrombosis and embolism; Z86.711 Personal history of pulmonary embolism; Z87.19 Personal history of other diseases of the digestive system; Z86.2 Personal history of diseases of the blood and blood-forming organs and certain disorders involving the immune mechanism; Z86.39 Personal history of other endocrine, nutritional and metabolic disease; Z98.890 Other specified postprocedural states
CPT/HCPCS: 36415; 81240; 85230; 85300; 85302; 85305; 85306; 85390; 85610; 85613; 85730; 86147; 82728; 85303

== ENCOUNTER 2024-02-23 04:33 | Outpatient (RCR) | payer BC, SELFPAY ==
[2024-02-09] MEDS: Normal Saline Flush 10 ML SYR IVP (11:04)
[2024-02-09] MEDS: IRON SUCROSE COMPLEX 200 MG in Normal Saline 100 ML 440 MG IVPB (11:04)
[2024-02-16] MEDS: Normal Saline Flush 10 ML SYR IVP (10:58)
[2024-02-16] MEDS: IRON SUCROSE COMPLEX 200 MG in Normal Saline 100 ML 440 MG IVPB (10:58)
[2024-02-23] MEDS: Normal Saline Flush 10 ML SYR IVP (11:39)
[2024-02-23] MEDS: IRON SUCROSE COMPLEX 200 MG in Normal Saline 100 ML 440 MG IVPB (11:39)
== END 2024-03-05 23:59 | disposition home or self-care (01) ==
LOC: INF 04:33
PROVIDERS: PCP Nurse Practitioner; Visit Provider Surgery
DX: D50.9 Iron deficiency anemia, unspecified (principal)
CPT/HCPCS: 96365; J1756

== ENCOUNTER 2024-03-02 15:45 | Outpatient (CLI) | payer BC, SELFPAY ==
[2024-03-02 14:56] LABS: Abs Immature Grans 0.01 10^3/uL (0.0-0.06); HCT 32.9 % (36.0-46.0); HGB 9.5 g/dL (11.2-15.7); MCH 23.5 pg (27.0-33.0); MCHC 28.9 % (32.0-36.0); MCV 81 fL (80-95); MPV 10.3 fL (8.0-11.0); Platelet Count 217 10^3/uL (130-400); RBC 4.04 10^6/uL (3.93-5.22); RDW 19.1 % (11.7-14.6); RDW-SD 56.4 fL; WBC 4.09 10^3/uL (4.4-10.8)
[2024-03-02 15:13] LABS: Ferritin 139 ng/mL (8-252)
[2024-03-02 15:17] LABS: Absolute Eosinophil Count 0.16 10^3/uL (0.0-0.7); Absolute Lymphocyte Count 1.55 10^3/uL (1.2-3.4); Absolute Monocyte Count 0.37 10^3/uL (0.1-0.8); Atypical Lymphocytes % 1 %; Diff Comment Manual Differential; Polychromasia Present
== END 2024-03-02 15:46 | disposition home or self-care (01) ==
LOC: LBO 15:45
PROVIDERS: PCP Nurse Practitioner; Visit Provider Surgery
DX: Z79.01 Long term (current) use of anticoagulants (principal); K64.9 Unspecified hemorrhoids; K92.2 Gastrointestinal hemorrhage, unspecified; K57.90 Diverticulosis of intestine, part unspecified, without perforation or abscess without bleeding; D50.9 Iron deficiency anemia, unspecified; D62 Acute posthemorrhagic anemia
CPT/HCPCS: 36415; 86850; 86900; 86901; 82728; 85025

== ENCOUNTER 2024-07-06 11:34 | Inpatient (IN) | payer OTHER, SELFPAY ==
[2024-07-06] VITALS (104 sets, daily range): BP systolic 103–161; BP diastolic 38–93; PULSE 71–105; RESP 9–32; TEMP 36.6–36.8; O2SAT 95–100
--- NOTE | 2024-07-06 12:00 | RT.EKG_ITS ---
APPROVED REPORT Exam: Resting ECG Reason for Exam: shortness of breath Patient Location: E HR:80 bpm ECG Measurements Heart Rate 80 AXIS [place] 156 P 44 QRSd 99 QRS 22 QT 358 T 50 QTc 414 Conclusion Sinus rhythm...normal P axis, V-rate 60- 99
[2024-07-06 12:26] LABS: Abs Immature Grans 0.03 10^3/uL (0.0-0.06); Absolute Basophil Count 0.05 10^3/uL (0.0-0.2); Absolute Eosinophil Count 1.91 10^3/uL (0.0-0.7); Absolute Monocyte Count 0.52 10^3/uL (0.1-0.8); Absolute Neutrophil Count 4.64 10^3/uL (1.2-6.7); Basophils % 0.6 %; Eosinophils % 21.8 %; HCT 31.3 % (36.0-46.0); HGB 9.1 g/dL (11.2-15.7); Immature Grans % 0.3 %; Lymphocytes % 18.3 %; MCH 23.8 pg (27.0-33.0); MCHC 29.1 % (32.0-36.0); MCV 82 fL (80-95); MPV 10.2 fL (8.0-11.0); Monocytes % 5.9 %; Neutrophils % 53.1 %; Platelet Count 334 10^3/uL (130-400); RBC 3.82 10^6/uL (3.93-5.22); RDW 16.7 % (11.7-14.6); RDW-SD 49.9 fL; WBC 8.75 10^3/uL (4.4-10.8)
--- NOTE | 2024-07-06 12:30 | DI.CT_ITS ---
Exam(s) CT CHEST PE ABD PELVIS W EXAM: CT CHEST PE ABD PELVIS W CLINICAL HISTORY: gi bleeding. LLQ pain, hx of divertic. hx of PE and embolectomy, hypoxia. TECHNIQUE: Imaging Protocol: Axial CT angiography was performed with multi-slice acquisition and mu lti-planar and/or 3D reconstructions. Computer aided detection (CAD) was utilized. CONTRAST MATERIAL: Intravenous: Omnipaque 350 Contrast volume:100 ml COMPARISON: CT CT ABDOMEN PELVIS CTA from 01/04/2024 FINDINGS: CHEST: Pulmonary Arteries: No evidence of filling defects to suggest pulmonary emboli. Tracheobronchial tree: No bronchiectasis or mucus plugging. Mediastinum and Mere: No dominant adenopathy or fluid collection. Pulmonary parenchyma: No consolidation or dominant measurable mass. Expiratory changes. Pleura: No effusion. No pneumothorax. Heart: The heart is notdilated. No coronary artery calcifications are seen. Aorta: Thoracic aorta non-dilated. Bones: Unremarkable for age. Tubes, Catheters, and Lines: None. Soft tissues: Unremarkable. ABDOMEN and PELVIS: Liver: Normal size. Normal density. No suspicious measurable mass. Portal, Superior Mesenteric, and Splenic Veins: Unremarkable. Gallbladder and Biliary Tract: No status post cholecystectomy.. No biliary dilatation. Pancreas: Normal density, no abnormal calcifications or inflammatory process. Spleen: Normal. Adrenals: No masses seen. Kidneys: Normal size, contour and axis. No radiodense stones. No obstructive uropathy. No masses seen . Vasculature: Abdominal aorta non-dilated. Bowel: diverticulosis noted of the sigmoid. Mild surrounding inflammatory changes consistent with di verticulitis. No abscess or free air. Appendix is unremarkable. Peritoneal Cavity: No ascites, collection or mesenteric inflammatory response. Lymph Nodes: Within normal limits. Soft Tissues: Small fatty containing hernia above the level of the umbilicus. Tiny amount of fat in the umbilicus Bladder: Symmetric distention, no gross wall thickening. Reproductive Organs: Status post hysterectomy. Bones: Unremarkable for age.. IMPRESSION: 1. No evidence of pulmonary embolism or other acute abnormality in the chest. 2. Mild sigmoid diverticulitis. 3. Findings called to Salud Del Castillo, ER provider. RADIATION DOSE DELIVERED: 1,056.39mGy.cm Total DLP DATA REPOSITORY: All CT scans at this facility are submitted to the National Radiology Data Registry (NRDR) Dose Index Registry (DIR) with the [employer] (ACR). RADIATION OPTIMIZATION: All CT scans at this facility use at least one of these dose optimization te chniques: automated exposure control; mA and/or kV adjustment per patient size (includes targeted exa ms where dose is matched to clinical indication); or iterative reconstruction.
--- NOTE | 2024-07-06 12:32 | ED.GENADUL_ITS ---
Discharge Plan Disposition Patient Disposition: Admit to [facility] Discharge Details Clinical Impression: Diverticulitis, Acute GI bleeding, Diarrhea Primary Care Provider: Rachel Greene ED Provider: Salud Del Castillo Home Meds and New Rx's Prescriptions: Continued fexofenadine [Amarilis Allergy] 60 mg tablet 60 mg PO Q12H PRN pantoprazole [Protonix] 40 mg tablet,delayed release (DR/EC) 40 mg PO DAILY Qty: 30 12RF docusate sodium 100 mg capsule 100 mg PO BID albuterol sulfate [Ventolin HFA] 90 mcg/actuation HFA aerosol inhaler 2 puff inhalation Q6H PRN (Reason: shortness of breath or wheezing) Qty: 8.5 4RF ferrous gluconate 324 mg (38 mg iron) tablet 324 mg PO BID Qty: 60 0RF Rx Instructions: Take on an empty stomach benzonatate 100 mg capsule 100 mg PO TID PRN (Reason: cough) Qty: 14 0RF amoxicillin-pot clavulanate 875-125 mg tablet 1 tab PO BID Patient Comments: TAKE ONE TABLET BY MOUTH TWICE A DAY FOR 10 DAYS montelukast [Singulair] 10 mg tablet 10 mg PO DAILY PRN HPI General Date/Time Provider Initiated Documentation: 07/06/24 11:40 . HPI Narrative: This complex 34-year-old female history of pulmonary emboli requiring embolectomy recently removed from anticoagulation secondary to recurrent GI bleed and history of diverticulitis with left lower quadrant pain diarrhea, and blood in stool which started in 2 days prior to arrival. Recent initiation of Augmentin secondary to suspected sinusitis diagnosed at the recent at the local urgent care. Has been on antibiotics since 06/30/2024. States that dyspnea started 1 week ago has been progressively worsening. Denies any chest discomfort calf pain or swelling. Related Data Home Medications ?Medication ?Instructions ?Recorded ?Confirmed fexofenadine 60 mg tablet (Amarilis 60 mg PO Q12H PRN 10/20/22 07/06/24 Allergy) albuterol sulfate 90 mcg/actuation 2 puff inhalation Q6H PRN 01/06/23 07/06/24 aerosol inhaler (Ventolin HFA) shortness of breath or wheezing #8.5 grams montelukast 10 mg tablet 10 mg PO DAILY PRN 01/04/24 07/06/24 (Singulair) pantoprazole 40 mg tablet,delayed 40 mg PO DAILY #30 tabs 02/03/24 07/06/24 release (Protonix) docusate sodium 100 mg capsule 100 mg PO BID 03/02/24 07/06/24 ferrous gluconate 324 mg (38 mg 324 mg PO BID #60 tabs 04/06/24 07/06/24 iron) tablet benzonatate 100 mg capsule 100 mg PO TID PRN cough #14 caps 06/28/24 07/06/24 amoxicillin 875 mg-potassium 1 tab PO BID 07/06/24 07/06/24 clavulanate 125 mg tablet Previous Rx's ?Medication ?Instructions ?Recorded albuterol sulfate 90 mcg/actuation 2 puff inhalation Q6H PRN 01/06/23 aerosol inhaler (Ventolin HFA) shortness of breath or wheezing #8.5 grams pantoprazole 40 mg tablet,delayed 40 mg PO DAILY #30 tabs 02/03/24 release (Protonix) ferrous gluconate 324 mg (38 mg 324 mg PO BID #60 tabs 04/06/24 iron) tablet benzonatate 100 mg capsule 100 mg PO TID PRN cough #14 caps 06/28/24 Allergies Allergy/AdvReac Type Severity Reaction Status Date / Time rubber, unspecified Allergy Intermediate blotchy Verified 07/06/24 11:39 skin latex Allergy Unknown hives Verified 07/06/24 11:39 EKG Tabs Allergy Intermediate Skin Rash Uncoded 07/06/24 11:39 seasonal allergies AdvReac Intermediate sinus Uncoded 07/06/24 11:39 congestions, ear problems General Stated Complaint: Abd Prob QIANA: 3 Exam Narrative Exam Narrative: Alert and oriented, no acute distress, no pallor, abdominal tenderness left lower quadrant, no rebound or guarding, scant blood noted in school, light brown in color, guaiac positive, lungs clear to auscultation, no acute respiratory distress Course Vital Signs Vital signs: Vital Signs Temperature 36.6 C 07/06/24 11:37 Pulse 105 H 07/06/24 11:37 Blood Pressure 148/81 H 07/06/24 11:37 Pulse Oximetry 97 07/06/24 11:37 Temperature 36.6 C 07/06/24 11:41 Temperature Source Temporal Artery Scan 07/06/24 11:41 Pulse 105 H 07/06/24 11:41 Respiratory Effort Normal, Non-Labored 07/06/24 11:42 Blood Pressure 148/81 H 07/06/24 11:41 Blood Pressure Position Sitting 07/06/24 11:41 Pulse Oximetry 97 07/06/24 11:41 Oxygen Delivery Method Room Air 07/06/24 11:41 Oxygen Flow Rate 0 07/06/24 11:41 Pain Level 4 07/06/24 12:13 Lab/Test Results Lab/Test Results: Laboratory Tests Range/Units 07/06/24 12:10 WBC (4.4-10.8) 10^3/uL 8.75 RBC (3.93-5.22) 10^6/uL 3.82 L Hgb (11.2-15.7) g/dL 9.1 L Hct (36.0-46.0) % 31.3 L MCV (80-95) fL 82 MCH (27.0-33.0) pg 23.8 L MCHC (32.0-36.0) % 29.1 L RDW (11.7-14.6) % 16.7 H Plt Count (130-400) 10^3/uL 334 MPV (8.0-11.0) fL 10.2 Immature Gran % % 0.3 Neutrophils % % 53.1 Lymphocytes % % 18.3 Monocytes % % 5.9 Eosinophils % % 21.8 Basophils % % 0.6 Nucleated RBC % (0.0-0.3) % 0.0 Absolute Neutrophils (1.2-6.7) 10^3/uL 4.64 Absolute Lymphocytes (1.2-3.4) 10^3/uL 1.60 Absolute Monocytes (0.1-0.8) 10^3/uL 0.52 Absolute Eosinophils (0.0-0.7) 10^3/uL 1.91 H Absolute Basophils (0.0-0.2) 10^3/uL 0.05 Medical Decision Making -year-old female presenting with abdominal pain and bloody stools. Guaiac positive visible blood in stool noted. Not currently anticoagulated. Patient has had some worsening dyspnea and does have a history of PE. I did order CTA chest and CT abdomen pelvis to further evaluate. CTA chest does not show evidence of pulmonary embolism or other acute process. Patient's lungs are clear and she is in no acute distress. I suspect her respiratory symptoms are secondary to blood loss anemia. She is dropped approximately 2 points since March I suspected secondary to current episode. CT abdomen and pelvis shows evidence of sigmoid diverticulitis which I suspect is the cause of patient's bleeding. She is currently taking Augmentin and then secondary to a diagnosis of sinusitis for which she is taken Augmentin 7 days 4. C. difficile and stool pathogens pending. Will initiate Cipro and Flagyl for treatment of diverticulitis. After discussion with Dr. Webster regarding this patient, it was recommended that we initiate 1 unit of packed red blood cells and 1 g of TXA. I initiated 1 g of TXA and 1 unit of blood after obtaining consent from patient. She has remained hemodynamically stable in the emergency department and will be admitted for further evaluation and observation at this time. Quality:[facility] Health Related Social Needs: No Data to Display PFSH All Active Problems (Updated 07/06/24 @ 15:50 by LORRAINE Copeland) Diarrhea (Acute) Acute GI bleeding (Acute) Diverticulitis (Chronic) Diverticulosis (Acute) Anemia due to blood loss, acute (Acute) Fe deficiency anemia (Acute) Acute lower gastrointestinal bleeding (Acute) Hemorrhoids (Acute) Anticoagulated (Acute) Medical History (Updated 07/06/24 @ 15:50 by LORRAINE Copeland) History of DVT (deep vein thrombosis) Provoked following a car trip to [place]. Patient was never worked up for a clotting disorder Hx pulmonary embolism post embolectomy (possible saddle per pt description) History of GI bleed Slow bleed per pt report, [place] 04/2024 Hx of iron deficiency s/p iron infusions per Dr. Zuniga, post Apr 2023 GI Bleed/[place] Hx of iron deficiency anemia Surgical History (Updated 01/04/24 @ 16:34 by Reyna Webster DO) History of embolectomy Bilateral pulmonary artery embolectomy due to provoked DVT S/P LUIZ (total abdominal hysterectomy) History of History of ERCP for Gallstones Hx of colonoscopy (~04/2023) Hx laparoscopic cholecystectomy Family History Maternal Grandfather Diabetes Maternal Grandmother Diabetes Mother Diabetes Social History Smoking/Tobacco Use Status: Never Smoking risk assessment performed?: Yes Alcohol Intake: never Drug use: Never Substance use type: does not use Household members: family Housing: apartment Number of Children: 2 number of grandchildren: 1 Communication Needs: Corrective Lenses Education Level: high school current occupation: [employer] in [place] What is your relationship status?: How often do you get together with friends or relatives?: three or more times per week Panel score (0-1 are the most socially isolated patients): 1 What type of physical activity do you participate in: none Working smoke detector in home: Yes Fire extinguisher in home: Yes Carbon monox detector in home: Yes Do you feel safe at home: Yes Do you feel safe in your relationship?: Yes
[2024-07-06 12:46] LABS: Magnesium 1.9 mg/dL (1.8-2.4)
[2024-07-06 12:47] LABS: Lipase 58 U/L (16-77)
[2024-07-06 13:03] LABS: ALT 28 U/L (14-59); AST 18 U/L (15-37); Albumin 3.4 g/dL (3.4-5.0); Alkaline Phosphatase 112 U/L (46-116); Anion Gap 13.6 mmol/L (3-11); BUN 17 mg/dL (7-18); Bilirubin, Total 0.13 mg/dL (0.2-1.0); CO2 23.4 mmol/L (21.0-32.0); CREATININE 0.9 mg/dL (0.55-1.02); Chloride 109 mmol/L (98-107); Estimated GFR 75.97 (mL/min/1.73m2); Glucose 135 mg/dL (74-106); NT-proBNP 21 pg/mL (<300); Potassium 3.8 mmol/L (3.5-5.1); Sodium 146 mmol/L (136-145); Total Protein 7.6 g/dL (6.4-8.2); Troponin I 4 ng/L (<or=51)
[2024-07-06 13:11] LABS: Calcium 9.6 mg/dL (8.5-10.1)
[2024-07-06] MEDS: Omnipaque 350 MG/ML 100 ML BTL IJ (13:15)
[2024-07-06 13:25] LABS: Bilirubin Negative (Negative); Blood Moderate (Negative); Clarity Clear (Clear); Glucose Negative (Negative); Ketones Negative (Negative); Leukocyte Esterase Negative (Negative); Nitrite Negative (Negative); Specific Gravity >= 1.030 (1.005-1.025); Urobilinogen 0.2 mg/dL (Up to 0.2); pH 5.5 (5-8)
[2024-07-06] MEDS: Normal Saline - Diluent 50 ML VIAL IV (13:26)
[2024-07-06 13:49] LABS: Troponin I 5 ng/L (<or=51)
[2024-07-06] MEDS: Pantoprazole 40 MG VIAL IVP (13:49)
[2024-07-06 14:05] LABS: Bacteria Rare HPF (Negative); C & S Indicated? No; Casts 0-2 Hyaline LPF (Negative); Crystals Negative HPF (Negative); Epithelial Cells Moderate HPF (Negative); Mucus Trace (Negative); RBC 0-2 HPF (0-2); WBC 0-2 HPF (0-5)
[2024-07-06] MEDS: CIPROFLOXACIN 400 MG/200 ML BAG 200 MG IVPB (14:50)
[2024-07-06] MEDS: Tranexamic Acid 1,000 MG/10 ML VIAL 1000 MG IVP (14:50)
[2024-07-06] MEDS: metroNIDAZOLE 500 MG/100 ML BAG 100 MG IVPB (15:58)
--- NOTE | 2024-07-06 16:14 | HPE_ITS ---
Date of service: 07/06/24 Time of Service: 16:14 Assessment and Plan Assessment and plan (1) Diverticulosis of intestine with bleeding: Status: Acute Assessment and plan: transfuse 1 PRBC TXA trend H&H check C diff. hold any further abx. plan CE and tattoo in am Informed consent is obtained for the procedural (explained in simple layman's terms that the pt. and/or family could understand) explaining risks vs benefits and alternatives to the procedure and consequences if we do not do the procedure and need/rational for the procedure. Risks include but are not limited to: bleeding, infection, perforation of esophagus, stomach, colon, small intestines, bronchus or trachea, or PTX. This would necessitate emergency surgery to repair the damage w/ possible ostomy; and other associated complications w/ the required surgery. Also complications of anesthesia including aspiration, ND/CVA/. I think we have reached the point that we need to think about elective colon surgery. The Bleeding today seems to be coming from the sigmoid. We talked about risk and benefits, and recovery time of surgery. Informed consent is obtained for the procedural (explained in simple layman's terms that the pt and/or family could understand) explaining risks vs benefits and alternatives to the procedure and consequences if we do not do the procedure. Risks include but are not limited to: bleeding, infections, pneumonia, blood clots/DVT/PE, anesthesia (aspiration, damage to teeth/airway/ND/CVA//prolonged mechanical ventilation/PTX/IV infections), damage to bowel, bladder, blood vessels, ureters. Damage to solid organs requiring removal. Leakage from anastomosis requiring colostomy/ Wound infections requiring further surgery. ?Scarring and disfigurement. Subsequent bowel obstructions from scar tissue.? Chronic pain or numbness from the incision, or hernia. Possible open procedure if minimally invasive procedure is being attempted. Qualifiers: Diverticulosis site: diverticulosis of large intestine Qualified Code(s): K57.31 - Diverticulosis of large intestine without perforation or abscess with bleeding (2) Diarrhea: Status: Acute History of Present Illness Narrative: Pr returned to the ED w/ SOB and rectal bleeding, despite being off of the blood thinners. She has no further bleeding since 1300. She did get a dose of TXA in the ED and will get a unit of blood. We d/w doing elective sigmoid resection. I do think I see x2 areas of contrast blush in a diverticulum. She is on augmentin for a sinus infection, and has been having diarrhea. SHe is not having any n/v. She is not having any abodminal santizo. CT and labs reviewed. Review of Systems All systems reviewed & are unremarkable except as noted in HPI and below PFSH All Active Problems (Updated 07/06/24 @ 20:51 by Reyna Webster DO) Diverticulosis of intestine with bleeding (Acute) Diarrhea (Acute ~07/06/24) Acute GI bleeding (Acute) Diverticulitis (Chronic) Diverticulosis (Acute) Anemia due to blood loss, acute (Acute) Fe deficiency anemia (Acute) Acute lower gastrointestinal bleeding (Acute) Hemorrhoids (Acute) Medical History (Updated 07/06/24 @ 20:51 by Reyna Webster DO) Anticoagulated History of DVT (deep vein thrombosis) Provoked following a car trip to [place]. Patient was never worked up for a clotting disorder Hx pulmonary embolism post embolectomy (possible saddle per pt description) History of GI bleed Slow bleed per pt report, [place] 04/2024 Hx of iron deficiency s/p iron infusions per Dr. Zuniga, post Apr 2023 GI Bleed/[place] Hx of iron deficiency anemia Surgical History (Updated 01/04/24 @ 16:34 by Reyna Webster DO) History of embolectomy Bilateral pulmonary artery embolectomy due to provoked DVT S/P LUIZ (total abdominal hysterectomy) History of History of ERCP for Gallstones Hx of colonoscopy (~04/2023) Hx laparoscopic cholecystectomy Family History Maternal Grandfather Diabetes Maternal Grandmother Diabetes Mother Diabetes Social History Smoking/Tobacco Use Status: Never Smoking risk assessment performed?: Yes Alcohol Intake: never Drug use: Never Substance use type: does not use Household members: family Housing: apartment Number of Children: 2 number of grandchildren: 1 Communication Needs: Corrective Lenses Education Level: high school current occupation: [employer] in [place] What is your relationship status?: How often do you get together with friends or relatives?: three or more times per week Panel score (0-1 are the most socially isolated patients): 1 What type of physical activity do you participate in: none Working smoke detector in home: Yes Fire extinguisher in home: Yes Carbon monox detector in home: Yes Do you feel safe at home: Yes Do you feel safe in your relationship?: Yes Meds Allergies and Home Medications Allergies Allergy/AdvReac Type Severity Reaction Status Date / Time rubber, unspecified Allergy Intermediate blotchy Verified 07/06/24 11:39 skin latex Allergy Unknown hives Verified 07/06/24 11:39 EKG Tabs Allergy Intermediate Skin Rash Uncoded 07/06/24 11:39 seasonal allergies AdvReac Intermediate sinus Uncoded 07/06/24 11:39 congestions, ear problems Home Medications ?Medication ?Instructions ?Recorded ?Confirmed ?Type fexofenadine 60 mg tablet (Amarilis 60 mg PO Q12H PRN 10/20/22 07/06/24 History Allergy) albuterol sulfate 90 mcg/actuation 2 puff inhalation Q6H PRN 01/06/23 07/06/24 Rx aerosol inhaler (Ventolin HFA) shortness of breath or wheezing #8.5 grams montelukast 10 mg tablet 10 mg PO DAILY PRN 01/04/24 07/06/24 History (Singulair) pantoprazole 40 mg tablet,delayed 40 mg PO DAILY #30 tabs 02/03/24 07/06/24 Rx release (Protonix) docusate sodium 100 mg capsule 100 mg PO BID 03/02/24 07/06/24 History ferrous gluconate 324 mg (38 mg 324 mg PO BID #60 tabs 04/06/24 07/06/24 Rx iron) tablet benzonatate 100 mg capsule 100 mg PO TID PRN cough #14 caps 06/28/24 07/06/24 Rx amoxicillin 875 mg-potassium 1 tab PO BID 07/06/24 07/06/24 History clavulanate 125 mg tablet Exam Narrative Exam Narrative: PHYSICAL EXAM GENERAL APPEARANCE: Alert, healthy appearance, oriented, x 3,? in no acute distress HYDRATION: Well hydrated HEAD, EYES, EARS, NECK, THROAT: Head is normocephalic, pupils equal, round, reactive to light and accommodation, ocular movement intact, sclera clear and no jaundice. ?Dentition intact. No sore throat.? NECK: Trachea midline.? Neck supple.? No JVD LUNGS: normal respiration/normal chest excursion. ?Clear to auscultation bilaterally. ?No wheeze. ?HEART: Regular rate and rhythm. no murmurs EXTREMITY: No edema or cyanosis.? no leg pain, redness, swelling.? ABDOMEN: soft and non-tender to palpation.? Normal bowel sounds.? She has not had any prior abdominal surgery's. Results Labs 07/06/24 18:57 07/06/24 12:10 Labs: Laboratory Results - last 24 hr 07/06/24 07/06/24 07/06/24 12:10 13:00 13:17 WBC 8.75 RBC 3.82 L Hgb 9.1 L Hct 31.3 L MCV 82 MCH 23.8 L MCHC 29.1 L RDW 16.7 H Plt Count 334 MPV 10.2 Immature Gran % 0.3 Neutrophils % 53.1 Lymphocytes % 18.3 Monocytes % 5.9 Eosinophils % 21.8 Basophils % 0.6 Nucleated RBC % 0.0 Absolute Neutrophils 4.64 Absolute Lymphocytes 1.60 Absolute Monocytes 0.52 Absolute Eosinophils 1.91 H Absolute Basophils 0.05 Sodium 146 H Potassium 3.8 Chloride 109 H Carbon Dioxide 23.4 Anion Gap 13.6 H BUN 17 Creatinine 0.9 Est GFR (CKD-EPI 2020) 75.97 Glucose 135 H Calcium 9.6 Magnesium 1.9 Total Bilirubin 0.13 L AST 18 ALT 28 Alkaline Phosphatase 112 Troponin I 4 5 NT-Pro-B Natriuret Pep 21 Total Protein 7.6 Albumin 3.4 Lipase 58 Urine Color Yellow Urine Clarity Clear Urine pH 5.5 Ur Specific [place] >= 1.030 H Urine Protein 30 H Urine Ketones Negative Urine Blood Moderate H Urine Nitrite Negative Urine Bilirubin Negative Urine Urobilinogen 0.2 Ur Leukocyte Esterase Negative Urine RBC 0-2 Urine WBC 0-2 Ur Epithelial Cells Moderate Urine Crystals Negative Urine Bacteria Rare Urine Casts 0-2 Hyaline Urine Mucus Trace Ur Culture Indicated? No Urine Glucose Negative ABO/Rh O Positive Antibody Screen NEGATIVE Crossmatch See Detail Last Vital Signs Temp 36.8 C 07/06/24 15:25 Pulse 75 07/06/24 15:25 Resp 18 07/06/24 15:25 BP 121/55 L 07/06/24 15:25 Pulse Ox 99 10/31/24 15:25 Time Spent Time spent with Patient: 40-54 minutes Time was spent: preparing to see the patient(eg.review tests), obtaining and/or reviewing separately otained hiistory, ordering medications,tests, procedures, referring, communicating with other health early breastfeeding care specialist, indepentently interpreting results, counseling the patient, care coordination and other
[2024-07-06 18:30] LABS: Troponin I 6 ng/L (<or=51)
[2024-07-06 19:00] LABS: HCT 30.2 % (36.0-46.0); HGB 9.1 g/dL (11.2-15.7)
[2024-07-06] MEDS: Magnesium Citrate 300 ML BTL PO (22:08)
[2024-07-06] MEDS: IRON SUCROSE COMPLEX 200 MG in Normal Saline 100 ML 400 MG IVPB (22:08)
--- NOTE | 2024-07-06 22:15 | NUR.NOTE ---
Nursing Note:This RN gave report and transfer of care to Berkley Eaton RN at this time
[2024-07-07 05:22] LABS: Abs Immature Grans 0.03 10^3/uL (0.0-0.06); Absolute Basophil Count 0.05 10^3/uL (0.0-0.2); Absolute Eosinophil Count 1.97 10^3/uL (0.0-0.7); Absolute Lymphocyte Count 1.62 10^3/uL (1.2-3.4); Absolute Monocyte Count 0.59 10^3/uL (0.1-0.8); Absolute Neutrophil Count 4.42 10^3/uL (1.2-6.7); Basophils % 0.6 %; Eosinophils % 22.7 %; HCT 30.2 % (36.0-46.0); HGB 9.1 g/dL (11.2-15.7); Immature Grans % 0.3 %; Lymphocytes % 18.7 %; MCH 24.1 pg (27.0-33.0); MCHC 30.1 % (32.0-36.0); MCV 80 fL (80-95); MPV 10.8 fL (8.0-11.0); Monocytes % 6.8 %; Neutrophils % 50.9 %; Platelet Count 331 10^3/uL (130-400); RBC 3.77 10^6/uL (3.93-5.22); RDW 16.3 % (11.7-14.6); RDW-SD 47.1 fL; WBC 8.68 10^3/uL (4.4-10.8)
[2024-07-07 07:29] VITALS: BP 118/66; PULSE 87; RESP 18; TEMP 35.9; O2SAT 99
[2024-07-07] MEDS: Pantoprazole 40 MG TABCR PO (08:10)
--- NOTE | 2024-07-07 08:42 | ANES.PREOP_ITS ---
General Info Date of Service Date Performed: 07/07/24 Height: 5 ft Weight: 104.326 kg Body Mass Index (BMI): 44.9 Surgical Procedure: Operation Date: 07/07/24 13:10 Proposed Procedure Side Surgeon p Flexible Sigmoidoscopy Reyna Webster, Meds Allergies and Home Medications Allergies Allergy/AdvReac Type Severity Reaction Status Date / Time rubber, unspecified Allergy Intermediate blotchy Verified 07/06/24 11:39 skin latex Allergy Unknown hives Verified 07/06/24 11:39 EKG Tabs Allergy Intermediate Skin Rash Uncoded 07/06/24 11:39 seasonal allergies AdvReac Intermediate sinus Uncoded 07/06/24 11:39 congestions, ear problems Home Medication ?Medication ?Instructions ?Recorded fexofenadine 60 mg tablet (Amarilis 60 mg PO Q12H PRN 10/20/22 Allergy) albuterol sulfate 90 mcg/actuation 2 puff inhalation Q6H PRN 01/06/23 aerosol inhaler (Ventolin HFA) shortness of breath or wheezing #8.5 grams montelukast 10 mg tablet 10 mg PO DAILY PRN 01/04/24 (Singulair) pantoprazole 40 mg tablet,delayed 40 mg PO DAILY #30 tabs 02/03/24 release (Protonix) docusate sodium 100 mg capsule 100 mg PO BID 03/02/24 ferrous gluconate 324 mg (38 mg 324 mg PO BID #60 tabs 04/06/24 iron) tablet benzonatate 100 mg capsule 100 mg PO TID PRN cough #14 caps 06/28/24 amoxicillin 875 mg-potassium 1 tab PO BID 07/06/24 clavulanate 125 mg tablet Current Visit Medications: Current Medications Generic Name Dose Route Start Last Admin Trade Name Freq PRN Reason Stop Dose Admin Albuterol Sulfate 2 puff 07/06/24 21:04 Albuterol Hfa 8 Gm 60 Puff Inh IH Q6H PRN shortness of breath or wheezing Device 1 each 07/06/24 22:00 Inhaler, Assist Device DIRECTED KAVEH IV Miscellaneous Supplies 1 each 07/06/24 15:45 Iv Access IV DIRECTED KAVEH Iohexol 100 ml 07/06/24 13:15 07/06/24 13:15 Omnipaque 350 Mg/Ml 100 Ml Btl IJ 08/05/24 23:59 100 ml DIRECTED KAVEH Administration Montelukast Sodium 10 mg 07/06/24 21:04 Montelukast 10 Mg Tab PO DAILY PRN Morphine Sulfate 2 mg 07/06/24 15:38 Morphine 2 Mg/Ml Syr IVP Q1H PRN PRN Ondansetron HCl 4 mg 07/06/24 15:38 Ondansetron 4 Mg/2 Ml Vial IVP Q4H PRN PRN Pantoprazole Sodium 40 mg 07/07/24 08:30 07/07/24 08:10 Pantoprazole 40 Mg Tabcr PO 40 mg DAILY KAVEH Administration Pt's Own 1 each 07/07/24 07:52 Fexofenadine [ PO Amarilis Allergy] 60 Q12H PRN PRN Mg Tablet Sodium Chloride 50 ml 07/06/24 13:30 07/06/24 13:26 Normal Saline - Diluent 50 Ml Vial IV 50 ml .FOR DI USE KAVEH Administration Sodium Chloride 0 ml 07/06/24 15:38 Normal Saline Flush 10 Ml Syr IVP PRN PRN Sodium Chloride 0 ml 07/06/24 20:00 07/07/24 07:11 Normal Saline Flush 10 Ml Syr IVP Not Given BID KAVEH Sodium Chloride 0 ml 07/06/24 15:38 Normal Saline 10 Ml Vial IJ DIRECTED PRN PFSH Active Problems Active Problems: Problem Status Onset Code Diverticulosis of intestine with bleeding Acute K57.91 Diarrhea Acute ~07/06/24 R19.7 Acute GI bleeding Acute K92.2 Diverticulitis Chronic K57.92 Diverticulosis Acute K57.90 Anemia due to blood loss, acute Acute D62 Fe deficiency anemia Acute D50.9 Acute lower gastrointestinal bleeding Acute K92.2 Hemorrhoids Acute K64.9 Medical History Medical History (Updated 07/06/24 @ 20:51 by Reyna Webster, ) Anticoagulated History of DVT (deep vein thrombosis) Provoked following a car trip to [place]. Patient was never worked up for a clotting disorder Hx pulmonary embolism post embolectomy (possible saddle per pt description) History of GI bleed Slow bleed per pt report, [place] 04/2024 Hx of iron deficiency s/p iron infusions per Dr. 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 S/P LUIZ (total abdominal hysterectomy) History of History of ERCP for Gallstones Hx of colonoscopy (~04/2023) Hx laparoscopic cholecystectomy Tobacco Smoking/Tobacco Use Status: Never Alcohol Alcohol Intake: never Substance Use Substance use: Never Substance use type: does not use Vital Signs and Lab Results Vital Signs Most Recent Vital Signs in EMR: Most Recent Vital Signs Temp Pulse Resp BP Pulse Ox 35.9 C L 87 18 118/66 99 07/07/24 07:29 07/07/24 07:29 07/07/24 07:29 07/07/24 07:29 07/07/24 07:29 Point of Care Results Point of Care Results: Finger Stick Blood Glucose 107 07/07/24 07:54 Lab Results 07/07/24 05:17 07/06/24 12:10 Blood Type / Crossmatch: 2 Antibody Screen NEGATIVE 07/06/24 Crossmatch See Detail 07/06/24 Complete Blood Count: 2 White Blood Count 8.68 10^3/uL (4.4-10.8) 07/07/24 05:17 Red Blood Count 3.77 10^6/uL (3.93-5.22) L 07/07/24 05:17 Hemoglobin 9.1 g/dL (11.2-15.7) L 07/07/24 05:17 Hematocrit 30.2 % (36.0-46.0) L 07/07/24 05:17 Platelet Count 331 10^3/uL (130-400) 07/07/24 05:17 Complete Metabolic Panel: 2 Sodium 146 mmol/L (136-145) H 07/06/24 12:10 Potassium 3.8 mmol/L (3.5-5.1) 07/06/24 12:10 Chloride 109 mmol/L (98-107) H 07/06/24 12:10 Carbon Dioxide 23.4 mmol/L (21.0-32.0) 07/06/24 12:10 BUN 17 mg/dL (7-18) 07/06/24 12:10 Creatinine 0.9 mg/dL (0.55-1.02) 07/06/24 12:10 Est GFR (CKD-EPI 2020) 75.97 (mL/min/1.73m2) 07/06/24 12:10 Magnesium 1.9 mg/dL (1.8-2.4) 07/06/24 12:10 Calcium 9.6 mg/dL (8.5-10.1) 07/06/24 12:10 Albumin 3.4 g/dL (3.4-5.0) 07/06/24 12:10 Glucose 135 mg/dL (74-106) H 07/06/24 12:10 Liver Function Panel: 2 Alanine Aminotransferase (ALT/SGPT) 28 U/L (14-59) 07/06/24 12: 10 Aspartate Amino Transf (AST/SGOT) 18 U/L (15-37) 07/06/24 12:10 Coagulation Panel: 2 No Data to Display Cardiac Panel: 2 Troponin I 6 ng/L (<or=51) 07/06/24 NT-Pro-B Natriuret Pep 21 pg/mL (<300) 07/06/24 Arterial Blood Gas: 2 No Data to Display Venous Blood Gas: 2 No Data to Display Pancreas Panel: 2 Lipase 58 U/L (16-77) 07/06/24 12:10 Thyroid Panel: 2 No Data to Display Infectious Disease: 2 No Data to Display Blood Cultures: 2 No Data to Display Toxicology Panel: 2 No Data to Display Panel: 2 No Data to Display Imaging and Studies Imaging and Studies Study information below may be from another EMR and interpreted by another provider. Please see original notes in EMR for more complete details. Echocardiogram Summary: 10/29: LVEF 60%, RVSP 18 mmhg, no sig valvular dz. Anesthesia Assessment and Plan Anesthesia History Personal History: No History of Anesthesia Complications Family History: No Family History of Anesthesia Complications Exercise Tolerance Exercise Tolerance: Metabolic Equivalents>4 Pertinent Negatives Pertinent Negatives: No Symptoms of GERD Cardiac & Pulmonary Exam Cardiac Exam: Normal S1/S2 Heart Sounds Pulmonary Exam: Clear Bilateral Breath Sounds Implantable Cardiac Device Does patient have a Pacemaker or an ICD?: No Airway Exam Known Difficult Airway: No Mallampati Class: 3 Mouth Opening: Normal (> 3cm) Thyromental Distance: Greater than 3 cm Neck Range of Motion: Full ROM Neck Circumference: Thick Teeth Condition: Normal Dentition ASA Classification ASA Score: ASA 3 Emergency Case?: No NPO Status NPO Status: NPO Clears >2 hours, Solids >8 hours Status Status: History of Hysterectomy Anesthesia Plan Resuscitation Status: Full Code Anesthesia Technique: General Anesthesia Airway Planned: Natural Airway Monitors Used: Standard Monitors Preoperative Comments:: No respiratory distress, clear BS. Off blood thinners since April. Transfused 1 unit PRBC's yesterday. H/H noted. Cardiac Echo WNL. Chris Peñaloza CRNA
[2024-07-07 08:46] VITALS: BMI 44.9
--- NOTE | 2024-07-07 09:06 | INITIAL_ITS ---
Date of service: 07/07/24 Time of Service: 09:06 Care Management Initial Assmt Initial Assessment Reason for Hospitalization: diverticulosis with bleeding Functional Status/Living Situation Patient Presentation: Anu Brennan was lying in bed in Zone B in the Ed, waiting for a bed on the Med-Surg unit when CM met with her. She explained to CM that Dr. Webster told her she would be having a sigmoidoscopy today to try to identify the source of her GI bleed. Neither Anu Brennan nor the ED staff knew when the procedure was supposed to take place. Anu Brennan lives alone in an apartment in [place]. She has a son who has recently moved to [facility] and a daughter and 2 year old grandchild who live near her in [place]. 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 She is independent at baseline and does not receive any community services. Town of Residence: [place], [place] Resides with: Alone Significant Other/Family: Local (daughter [facility], son [facility]) Employment Status: Employed (works for a company that makes [employer]) Instrumental Activities of Daily Living (ADLs): Independent Medications Medication Management: No Issues/Barriers identified Advance Directives Advance Directives: Do you have an Advance Directive: N 09/17/22 16:21 AD On File at [facility]: N 09/17/22 16:21 Date Asked 03/02/24 04/05/24 13:26 AD Date Reviewed COLST On File at [facility] No 01/04/24 16:16 COLST Date Scanned Code Status Resuscitation Status Full Code Insurance Coverage/Financial Issues Insurance: [facility] Care Team Visit Care Team Role Provider Type Rachel Greene NP Primary Care Provider NURSE PRACTITIONER LORRAINE [facility] Emergency Provider PHYSICIANS CLOTH FINISHING RANGE OPERATOR Reyna Webster DO Admit Provider OSTEOPATHIC DOCTOR Attending Provider Discharge Potential Discharge Needs: PCP F/U Appt and Surgical F/U Appt Anticipated Barriers to Discharge: None Identified Patient/Family Education Needs: Review discharge instructions, discuss Ask Me Three Transportation: Private vehicle Plan: Anticipate Anu Brennan will be discharged home with no new srervices when cleared by surgery. She will follow up with her community providers and plan of care and transport with family. CM will follow and support discharge planning needs. PFSH All Active Problems (Updated 07/07/24 @ 15:18 by Reyna Webster DO) Colitis due to Clostridium difficile (Acute) Diverticulosis of intestine with bleeding (Acute) Diarrhea (Acute ~07/06/24) Diverticulosis (Acute) Anemia due to blood loss, acute (Acute) Fe deficiency anemia (Acute) Acute lower gastrointestinal bleeding (Acute) Hemorrhoids (Acute) Medical History (Updated 07/07/24 @ 15:18 by Reyna Webster DO) Diverticulitis Anticoagulated History of DVT (deep vein thrombosis) Provoked following a car trip to [place]. Patient was never worked up for a clotting disorder Hx pulmonary embolism post embolectomy (possible saddle per pt description) History of GI bleed Slow bleed per pt report, [place] 04/2024 Hx of iron deficiency s/p iron infusions per Dr. 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 S/P LUIZ (total abdominal hysterectomy) History of History of ERCP for Gallstones Hx of colonoscopy (~04/2023) Hx laparoscopic cholecystectomy Family History Maternal Grandfather Diabetes Maternal Grandmother Diabetes Mother Diabetes Social History Smoking/Tobacco Use Status: Never Smoking risk assessment performed?: Yes Alcohol Intake: never Drug use: Never Substance use type: does not use Household members: family Housing: apartment Number of Children: 2 number of grandchildren: 1 Communication Needs: Corrective Lenses Education Level: high school current occupation: [employer] in [place] What is your relationship status?: How often do you get together with friends or relatives?: three or more times per week Panel score (0-1 are the most socially isolated patients): 1 What type of physical activity do you participate in: none Working smoke detector in home: Yes Fire extinguisher in home: Yes Carbon monox detector in home: Yes Do you feel safe at home: Yes Do you feel safe in your relationship?: Yes SDOH(Care Management) Screening Will the Patient Participate in the Screening?: Unable to obtain
[2024-07-07] MEDS: Normal Saline Flush 10 ML SYR IVP ×2 (09:51→18:12)
[2024-07-07 11:07] LABS: C Diff PCR Positive (Negative)
--- NOTE | 2024-07-07 12:41 | NUR.NOTE ---
Nursing Note: Results of stool sample indicate +C-Dif. EVS contacted and bathroom cleaned. Pt updated on condition. Commode placed in room and isolation gowns outside door as per protocol.
--- NOTE | 2024-07-07 15:17 | PGE_ITS ---
Date of Service Date of service: 07/07/24 Time of Service: 15:17 Assessment and Plan Assessment and plan (1) Diverticulosis of intestine with bleeding: Status: Acute Qualifiers: Diverticulosis site: diverticulosis of large intestine Qualified Code(s): K57.31 - Diverticulosis of large intestine without perforation or abscess with bleeding (2) Colitis due to Clostridium difficile: Status: Acute (3) Acute lower gastrointestinal bleeding: Status: Acute (4) Diverticulosis: Status: Acute (5) Anemia due to blood loss, acute: Status: Acute Subjective Subjective Interval history since last seen: Pt C diff did come back as positive. Patient states she has been having bloody diarrhea all day. Nursing has not observed this. She has been n.p.o. for a flex sig. In the light of the C. difficile diagnosis, I am going to cancel the flex sig today. I think the irritation from the C. difficile has exacerbated her diverticula and caused another GI bleed. I do not think it would be prudent to scope her at this time. Patient had been on Augmentin for a sinus infection. Patient states she is feeling quite nauseous and crampy. We will try some Zofran and some Levsin and see if we can get her feeling better and if she is able to tolerate liquids. She is not then we will have to start IV fluids. Going to keep her overnight and monitor hemoglobins and see how she proceeds. -Lungs are clear to auscultation -Heart is normal sinus rhythm -Abdomen is diffuse cramping and bloating but no peritonitis -No edema pain or swelling in the lower extremities. -Patient was also started on oral vancomycin for C. difficile 250 mg. This is her first episode of C. difficile. Objective Last Vital Signs Temp 35.9 C L 07/07/24 07:29 Pulse 87 07/07/24 07:29 Resp 18 07/07/24 07:29 BP 118/66 07/07/24 07:29 Pulse Ox 99 07/07/24 07:29 Laboratory Results - last 24 hr 07/06/24 07/06/24 07/06/24 12:10 15:39 18:57 WBC RBC Hgb 9.1 L Hct 30.2 L MCV MCH MCHC RDW Plt Count MPV Immature Gran % Neutrophils % Lymphocytes % Monocytes % Eosinophils % Basophils % Nucleated RBC % Absolute Neutrophils Absolute Lymphocytes Absolute Monocytes Absolute Eosinophils Absolute Basophils Troponin I 6 Stl C.difficile Tox PCR Crossmatch See Detail 07/07/24 07/07/24 05:17 10:15 WBC 8.68 RBC 3.77 L Hgb 9.1 L Hct 30.2 L MCV 80 MCH 24.1 L MCHC 30.1 L RDW 16.3 H Plt Count 331 MPV 10.8 Immature Gran % 0.3 Neutrophils % 50.9 Lymphocytes % 18.7 Monocytes % 6.8 Eosinophils % 22.7 Basophils % 0.6 Nucleated RBC % 0.0 Absolute Neutrophils 4.42 Absolute Lymphocytes 1.62 Absolute Monocytes 0.59 Absolute Eosinophils 1.97 H Absolute Basophils 0.05 Troponin I Stl C.difficile Tox PCR Positive A Crossmatch Time Spent with Patient Time Spent with Patient: 35-49 minutes Time was spent: preparing to see the patient(eg.review tests), obtaining and/or reviewing separately otained hiistory, ordering medications,tests, procedures, referring, communicating with other health dog day care attendant, indepentently interpreting results, counseling the patient, care coordination and other
--- NOTE | 2024-07-07 15:23 | PHA.REVIEW2 ---
Pharmacy Admission Review Admission Clinical Review Admission Pharmacy Review: Colitis due to Clostridium difficile (Acute) Diverticulosis of intestine with bleeding (Acute) Diarrhea (Acute ~07/06/24) Diverticulosis (Acute) Anemia due to blood loss, acute (Acute) Acute lower gastrointestinal bleeding (Acute) rubber, unspecified Allergy (Intermediate, Verified 07/06/24 11:39) blotchy skin latex Allergy (Unknown, Verified 07/06/24 11:39) hives EKG Tabs Allergy (Intermediate, Uncoded 07/06/24 11:39) Skin Rash seasonal allergies Adverse Reaction (Intermediate, Uncoded 07/06/24 11:39) sinus congestions, ear problems Resuscitation Status Full Code Height 5 ft Weight 104.326 kg Pharmacy Admission Review Renal Dosing Renal Dosing: BUN 17 mg/dL (7-18) 07/06/24 12:10 Creatinine 0.9 mg/dL (0.55-1.02) 07/06/24 12:10 Medications needing adjustments: Reviewed (CrCl 77.87 mL/min) List of meds needing interventions: Current medications are okay Anticoagulation Anticoagulation: Hgb 9.1 g/dL (11.2-15.7) L 07/07/24 05:17 Hct 30.2 % (36.0-46.0) L 07/07/24 05:17 Plt Count 331 10^3/uL (130-400) 07/07/24 05:17 Creatinine 0.9 mg/dL (0.55-1.02) 07/06/24 12:10 DVT Prophylaxis: Reviewed (SCDs, repeat Hgb pending) Opiate Usage Evaluate Pain Scale/Pains Meds: Reviewed (morphine IVP PRN - no doses given) Relevant Labs Relevant Labs: Sodium 146 mmol/L (136-145) H 07/06/24 12:10 Potassium 3.8 mmol/L (3.5-5.1) 07/06/24 12:10 Chloride 109 mmol/L (98-107) H 07/06/24 12:10 Magnesium 1.9 mg/dL (1.8-2.4) 07/06/24 12:10 Electrolytes, C-Reactive P, ESR: Reviewed Cardiac Review Cardiac Review: Troponin I 6 ng/L (<or=51) 07/06/24 15:39 NT-Pro-B Natriuret Pep 21 pg/mL (<300) 07/06/24 12:10 BP, HR, EF%: Reviewed (BP and HR WNL) QTc Review QTc: Reviewed (414 from 07/06/24) IV to PO Switch IV Medications: Reviewed (morphine and ondansetron) Home Meds Home Med List reviewed: Intervened Relevent Home Meds Not ordered & why?: docusate (PRN) and ferrous sulfate Changed fexofenadine to patients own order (non-formulary dose) Current Meds Current Medication Order Review: Intervened Comments: C.diff toxin positive today at 1015 - started on vancomycin 250mg PO q6h Added 2nd PRN to albuterol and montelukast orders per pharmacy protocol Changed pantoprazole timing from daily to daily@0730 per pharmacy protocol
[2024-07-07] MEDS: Ondansetron 4 MG/2 ML VIAL IVP (15:41)
[2024-07-07] MEDS: Hyoscyamine 0.125 MG SL/ORAL/CHEW SL (15:42)
--- NOTE | 2024-07-07 15:58 | W.PC.ACHO ---
Registration Status: Primary Language: Preferred Language: ED Information & Data Chief Complaint Abd Prob 07/06/24 12:34 Triage Note Patient complaining of lower 07/06/24 11:37 abd pain, bloody stools, nausea for 3 days Medical / Surgical History (Last Updated 07/07/24 @ 15:18 by Reyna Webster DO) Diverticulitis Anticoagulated History of DVT (deep vein thrombosis) Hx pulmonary embolism History of GI bleed Hx of iron deficiency Hx of iron deficiency anemia (Last Updated 01/04/24 @ 16:34 by Reyna Webster DO) History of embolectomy S/P LUIZ (total abdominal hysterectomy) History of History of ERCP Hx of colonoscopy (~04/2023) Hx laparoscopic cholecystectomy Most Recent Vital Signs Temperature 35.9 C L 07/07/24 07:29 Temperature Source Tympanic 07/07/24 07:29 Pulse 87 07/07/24 07:29 Pulse 75 07/06/24 17:00 Respiratory Rate 18 07/07/24 07:29 Respiratory Effort Normal, Non-Labored 07/06/24 11:42 Blood Pressure 118/66 07/07/24 07:29 Blood Pressure Mean 100 07/06/24 17:03 Blood Pressure Position Sitting 07/06/24 11:41 Pulse Oximetry 99 07/07/24 07:29 Oxygen Delivery Method Room Air 07/07/24 07:29 Oxygen Flow Rate 0 07/07/24 07:29 Pain Level 4 07/06/24 12:13 Allergies rubber, unspecified Allergy (Intermediate, Verified 07/06/24 11:39) blotchy skin latex Allergy (Unknown, Verified 07/06/24 11:39) hives pt reports.HE EKG Tabs Allergy (Intermediate, Uncoded 07/06/24 11:39) Skin Rash seasonal allergies Adverse Reaction (Intermediate, Uncoded 07/06/24 11:39) sinus congestions, ear problems Precautions Isolation Standard precaution 07/06/24 11:42 Active Medications Generic Name Dose Route Start Last Admin Trade Name Freq PRN Reason Stop Dose Admin Hyoscyamine Sulfate 0.125 mg 07/07/24 15:15 07/07/24 15:42 Hyoscyamine 0.125 Mg Sl/Oral/Chew SL 0.125 mg Q6H PRN PRN Administration Abdominal Pain Ondansetron HCl 4 mg 07/06/24 15:38 07/07/24 15:41 Ondansetron 4 Mg/2 Ml Vial IVP 4 mg Q4H PRN PRN Administration Sodium Chloride 0 ml 07/06/24 20:00 07/07/24 09:51 Normal Saline Flush 10 Ml Syr IVP 10 ml BID KAVEH Administration Vancomycin HCl 250 mg 07/07/24 12:00 07/07/24 11:57 Vancomycin 250 Mg Cap PO 250 mg Q6H KAVEH Administration IV IV Catheter Type [Right Diffusics Forearm] IV Catheter Type [Right Peripheral IV Antecubital] IV Catheter Type [Right Saline Lock Antecubital] IV Catheter Gauge [Right 20 Forearm] IV Catheter Gauge [Right 18 Antecubital] IV Catheter Gauge [Right 18 Antecubital] Diagnostics 07/07/24 07/07/24 07/07/24 Range/Units 17:00 10:15 05:17 WBC 8.68 (4.4-10.8) 10^3/uL RBC 3.77 L (3.93-5.22) 10^6/uL Hgb Pending 9.1 L (11.2-15.7) g/dL Hct Pending 30.2 L (36.0-46.0) % MCV 80 (80-95) fL MCH 24.1 L (27.0-33.0) pg MCHC 30.1 L (32.0-36.0) % RDW 16.3 H (11.7-14.6) % Plt Count 331 (130-400) 10^3/uL MPV 10.8 (8.0-11.0) fL Immature Gran % 0.3 % Neutrophils % 50.9 % Lymphocytes % 18.7 % Monocytes % 6.8 % Eosinophils % 22.7 % Basophils % 0.6 % Nucleated RBC % 0.0 (0.0-0.3) % Absolute Neutrophils 4.42 (1.2-6.7) 10^3/uL Absolute Lymphocytes 1.62 (1.2-3.4) 10^3/uL Absolute Monocytes 0.59 (0.1-0.8) 10^3/uL Absolute Eosinophils 1.97 H (0.0-0.7) 10^3/uL Absolute Basophils 0.05 (0.0-0.2) 10^3/uL Troponin I (<or=51) ng/L Stl C.difficile Tox PCR Positive A (Negative) Crossmatch 07/06/24 07/06/24 07/06/24 Range/Units 18:57 15:39 12:10 WBC (4.4-10.8) 10^3/uL RBC (3.93-5.22) 10^6/uL Hgb 9.1 L (11.2-15.7) g/dL Hct 30.2 L (36.0-46.0) % MCV (80-95) fL MCH (27.0-33.0) pg MCHC (32.0-36.0) % RDW (11.7-14.6) % Plt Count (130-400) 10^3/uL MPV (8.0-11.0) fL Immature Gran % % Neutrophils % % Lymphocytes % % Monocytes % % Eosinophils % % Basophils % % Nucleated RBC % (0.0-0.3) % Absolute Neutrophils (1.2-6.7) 10^3/uL Absolute Lymphocytes (1.2-3.4) 10^3/uL Absolute Monocytes (0.1-0.8) 10^3/uL Absolute Eosinophils (0.0-0.7) 10^3/uL Absolute Basophils (0.0-0.2) 10^3/uL Troponin I 6 (<or=51) ng/L Stl C.difficile Tox PCR (Negative) Crossmatch See Detail [id number] Documentation Fingerstick Glucose Start: 07/07/24 07:54 Freq: Status: Active Protocol: Activity Type Activity Date Activity User E-sign Co-sign Detail Recorded Client Recorded Date Recorded By Document 07/07/24 07:54 GARETH [id number] 07/07/24 07:54 GARETH Intake and Output - 24 Hour Total 07/06/24 11:34 thru 07/07/24 08:46 Intake Total 660 Balance 660 Weight 104.326 kg Intake: IV 410 Blood Product 250 Rbc Leuko Reduced Unit 250 [id number] Falls Risk Assessment History of Falls No History 07/06/24 12:13 Contributing Factors No Factors 07/06/24 12:13 Ambulatory Aids Independent 07/06/24 12:13 Tubes/Lines None 07/06/24 12:13 Gait Evaluation No gait disturbance 07/06/24 12:13 Cognition No cognitive impairment 07/06/24 12:13 Fall Total Score 0 07/06/24 12:13 Level of Risk Standard/Low Risk 07/06/24 12:13 Problems (Last Updated 07/07/24 @ 15:18 by Reyna Webster, ) Colitis due to Clostridium difficile (Acute) Diverticulosis of intestine with bleeding (Acute) Diarrhea (Acute ~07/06/24) Diverticulosis (Acute) Anemia due to blood loss, acute (Acute) Acute lower gastrointestinal bleeding (Acute) Notes 07/07/24 12:41 Nursing Notes by Matias Collier Nursing Note: Results of stool sample indicate +C-Dif. EVS contacted and bathroom cleaned. Pt updated on condition. Commode placed in room and isolation gowns outside door as per protocol. Initialized on 07/07/24 12:41 - END OF NOTE 07/06/24 22:15 Nursing Notes by Violet Daniels Nursing Note:This RN gave report and transfer of care to Berkley Eaton RN at this time Initialized on 07/06/24 22:15 - END OF NOTE v v v v v v v v v Sending and/or Receiving Nurses: Please use comment section below to note any information pertinent to the patient hand-off not included above. Information / Comments: Pt admitted for Diverticulitis, 1 u PRBC given, recheck H/H at 1700; possible D/C tonight or monitor one more night. Report received from:Rick
--- NOTE | 2024-07-07 17:01 | NUR.NOTE ---
Nursing Note: Pt transferred to [facility] via wheelchair. Report delivered to MYLENE Prasad.
[2024-07-07 17:18] LABS: HCT 29.4 % (36.0-46.0); HGB 8.9 g/dL (11.2-15.7)
[2024-07-07] MEDS: Lactobacillus Acidophilus CAP 1 CAP PO (18:12)
[2024-07-07 20:06] VITALS: BP 124/58; PULSE 80; RESP 18; TEMP 36.9; O2SAT 94
[2024-07-08] MEDS: Normal Saline Flush 10 ML SYR IVP ×2 (01:19→07:22)
[2024-07-08 07:16] LABS: HCT 27.7 % (36.0-46.0); HGB 8.3 g/dL (11.2-15.7)
[2024-07-08] MEDS: Pantoprazole 40 MG TABCR PO (07:21)
[2024-07-08 07:44] VITALS: BP 118/54; PULSE 84; RESP 17; TEMP 36.8; O2SAT 96
[2024-07-08 07:49] LABS: Magnesium 1.9 mg/dL (1.8-2.4); NT-proBNP 12 pg/mL (<300)
[2024-07-08 08:12] LABS: Ferritin 134 ng/mL (8-252)
[2024-07-08] MEDS: MORPHine 2 MG/ML SYR IVP (10:16)
--- NOTE | 2024-07-08 11:06 | PGE_ITS ---
Date of Service Date of service: 07/08/24 Time of Service: 11:06 Assessment and Plan Assessment and plan (1) Acute lower gastrointestinal bleeding: Status: Acute (2) Diverticulosis: Status: Acute (3) Diarrhea: Status: Acute (4) Diverticulosis of intestine with bleeding: Status: Acute Qualifiers: Diverticulosis site: diverticulosis of large intestine Qualified Code(s): K57.31 - Diverticulosis of large intestine without perforation or abscess with bleeding (5) Fe deficiency anemia: Status: Acute (6) Colitis due to Clostridium difficile: Status: Acute Assessment and plan: See discharge summary for discharge details. Subjective Subjective Interval history since last seen: Patient is seen and examined: they are doing well. THey have : no headaches. No CP or SOB. no productive cough. no dysuria. no leg pain or swelling. He has mild abdominal cramping. Nausea has subsided. She is able to eat Her stools are starting to form up. They are still a [place] 6. We did discuss that C. difficile is extremely contagious. And she is considered contagious until she has less than 3 formed stools a day formed to being a [place] 4, for 4 8 hours after she starts having formed stool. So she should self isolate and stay home from work. She is able to get her vancomycin from her pharmacy in [place]. She will do oral probiotics medication and foods. We will check her blood count when she has her follow-up appointment with her PCP. And I will see her back in 2 to 3 weeks. She would like to go home. See discharge summary. Objective Last Vital Signs Temp 36.8 C 07/08/24 07:44 Pulse 84 07/08/24 07:44 Resp 17 07/08/24 07:44 BP 118/54 L 07/08/24 07:44 Pulse Ox 96 07/08/24 07:44 Laboratory Results - last 24 hr 07/07/24 07/07/24 07/07/24 10:15 17:10 17:18 Hgb 8.9 L Hct 29.4 L Sodium Cancelled Potassium Cancelled Chloride Cancelled Carbon Dioxide Cancelled Anion Gap Cancelled BUN Cancelled Creatinine Cancelled Est GFR (CKD-EPI 2020) Cancelled Glucose Cancelled Calcium Cancelled Magnesium Cancelled Ferritin NT-Pro-B Natriuret Pep Stl C.difficile Tox PCR Positive A Add-On Test Request 07/07/24 07/08/24 Unknown 06:50 Hgb 8.3 L Hct 27.7 L Sodium Potassium Chloride Carbon Dioxide Anion Gap BUN Creatinine Est GFR (CKD-EPI 2020) Glucose Calcium Magnesium 1.9 Ferritin 134 NT-Pro-B Natriuret Pep 12 Stl C.difficile Tox PCR Add-On Test Request TNP Time Spent with Patient Time Spent with Patient: 25-34 minutes Time was spent: preparing to see the patient(eg.review tests), obtaining and/or reviewing separately otained hiistory, ordering medications,tests, procedures, referring, communicating with other health career development coordinator/teacher, indepentently interpreting results, counseling the patient, care coordination and other
--- NOTE | 2024-07-08 13:46 | DSE_ITS ---
Date of service: 07/08/24 Time of Service: 13:46 DS: Diagnosis Discharge Diagnosis (1) Acute lower gastrointestinal bleeding: Status: Acute (2) Diverticulosis: Status: Acute (3) Diarrhea: Status: Acute (4) Diverticulosis of intestine with bleeding: Status: Acute (5) Fe deficiency anemia: Status: Acute (6) Colitis due to Clostridium difficile: Status: Acute Discharge Plan Disposition Patient Disposition: Home Condition: Improving Discharge Details Reason For Visit: diverticular bleed/C diff Admit Date/Time: 07/06/24 15:38 Admit Provider: Reyna Webster Attending Provider: Reyna Webster [facility] Course: see addendum Home Meds and New Rx's Prescriptions: New vancomycin 250 mg Capsule 250 mg PO Q6H 14 Days Qty: 56 0RF ondansetron HCl (PF) 4 mg/2 mL Solution 4 mg IVP Q4H PRN PRNQty: 20 0RF Lactobacillus acidophilus 500 million cell Capsule 1,000 mmu cells PO TID 30 Days Qty: 180 0RF hyoscyamine sulfate [Anaspaz] 0.125 mg Tablet,Disintegrating 0.125 mg sublingual Q6H PRN Qty: 30 0RF Continued fexofenadine [Amarilis Allergy] 60 mg tablet 60 mg PO Q12H PRN pantoprazole [Protonix] 40 mg tablet,delayed release (DR/EC) 40 mg PO DAILY Qty: 30 12RF albuterol sulfate [Ventolin HFA] 90 mcg/actuation HFA aerosol inhaler 2 puff inhalation Q6H PRN (Reason: shortness of breath or wheezing) Qty: 8.5 4RF ferrous gluconate 324 mg (38 mg iron) tablet 324 mg PO BID Qty: 60 0RF Rx Instructions: Take on an empty stomach benzonatate 100 mg capsule 100 mg PO TID PRN (Reason: cough) Qty: 14 0RF montelukast [Singulair] 10 mg tablet 10 mg PO DAILY PRN Discontinued docusate sodium 100 mg capsule 100 mg PO BID amoxicillin-pot clavulanate 875-125 mg tablet 1 tab PO BID Patient Comments: TAKE ONE TABLET BY MOUTH TWICE A DAY FOR 10 DAYS Discharge Instructions Additional Instructions: -F/u w/ Dr. Krishnamurthy as previously scheduled. Have labs 90 mins prior to the appt as oupt. -Follow-up with Dr. Webster in 3weeks - call for appt on Wednesday [phone] -soft diet: No beef/pork raw vegetables x1 -week. Cooked vegetables are fine -Ishower daily -You may find that your appetite is smaller. Eat 3-6 small meals throughout the day. It is important to drink lots of water after surgery, 6-10 glasses a day. -If you were given an incentive spirometry (breathing tobacco educator?), continue to do this 10x/hour while awake. -We do want you up walking, at least 5-6 times per day. This is very important to prevent pneumonia and blood clots. You can climb stairs, take them slowly. -You may find that you are very tired after being in the hospital- this is normal. -see handout on cleaning home for C diff. -Yogurt/Kefir/fermented foods (kombucha/kimchee/sauerkraut) twice a day. -probiotics were prescribed tree times a day for 30 days. Finish all. -See hand-outs regarding self care and hand-washing/laundry/prevention You are considered contagious until 48hrs after the diarrhea has stopped You should stay at home and self isolate until stools are [place] 4 and 3 or less stools a day. Activity:: Activity as Tolerated Equipment/Supplies:: No Equipment Needed Diet:: As Tolerated DS: Summary Time Spent with Patient providing and/or coordinating discharge services: Greater than 30 minutes Status at Discharge Functional status at discharge: independent ambulation Overall status at discharge: patient is progressing back to baseline Mental Status: mental status grossly normal Speech and Movement: speech and movement normal Mood: congruent mood Affect: normal affect Quality:SDOH Health Related Social Needs: No Data to Display Exam Psych Mental Status: mental status grossly normal Speech and Movement: speech and movement normal Mood: congruent mood Affect: normal affect DS: Data Vitals/I&O Vitals and I&O: Vital Signs Temperature 36.8 C 07/08/24 07:44 Temperature Source Skin 07/08/24 07:44 Pulse 84 07/08/24 07:44 Pulse Rhythm Regular 07/07/24 17:00 Pulse 75 07/06/24 17:00 Respiratory Rate 17 11/02/24 07:44 Respiratory Effort Normal, Non-Labored 07/07/24 17:00 Respiratory Depth Normal 07/07/24 17:00 Respiratory Pattern Normal 07/07/24 17:00 Blood Pressure 118/54 L 07/08/24 07:44 Blood Pressure Mean 100 07/06/24 17:03 Blood Pressure Position Sitting 07/06/24 11:41 Pulse Oximetry 96 07/08/24 07:44 Oxygen Delivery Method Room Air 07/08/24 07:44 Oxygen Flow Rate 0 07/08/24 07:44 Pain Level 6 07/08/24 10:16 Intake & Output 07/07/24 07/08/24 07/08/24 23:59 11:59 23:59 Intake Total 700 / 700 Output Total 850 / 850 Balance 700 / 700 -830 / -830 Weight 108.862 kg Intake: IV Oral 680 / 680 Output: Urine 650 / 650 Stool 200 / 200 Other: Urine Color Yellow Urine Appearance Cloudy Comment Pt ind to toilet Stool Occult Blood Positive Stool Size Moderate Stool Characteristics Liquid Liquid Data Completed and Pending Labs on day of discharge: Labs from last 24 hours 07/08/24 07/07/24 07/07/24 06:50 Unknown 17:18 Hgb 8.3 L Hct 27.7 L Sodium Cancelled Potassium Cancelled Chloride Cancelled Carbon Dioxide Cancelled Anion Gap Cancelled BUN Cancelled Creatinine Cancelled Est GFR (CKD-EPI 2020) Cancelled Glucose Cancelled Calcium Cancelled Magnesium 1.9 Cancelled Ferritin 134 NT-Pro-B Natriuret Pep 12 Add-On Test Request TNP 07/07/24 17:10 Hgb 8.9 L Hct 29.4 L Sodium Potassium Chloride Carbon Dioxide Anion Gap BUN Creatinine Est GFR (CKD-EPI 2020) Glucose Calcium Magnesium Ferritin NT-Pro-B Natriuret Pep Add-On Test Request PFSH All Active Problems (Updated 07/07/24 @ 15:18 by Reyna Webster DO) Colitis due to Clostridium difficile (Acute) Diverticulosis of intestine with bleeding (Acute) Diarrhea (Acute ~07/06/24) Diverticulosis (Acute) Anemia due to blood loss, acute (Acute) Fe deficiency anemia (Acute) Acute lower gastrointestinal bleeding (Acute) Hemorrhoids (Acute) Medical History (Updated 07/07/24 @ 15:18 by Reyna Webster DO) Diverticulitis Anticoagulated History of DVT (deep vein thrombosis) Provoked following a car trip to [place]. Patient was never worked up for a clotting disorder Hx pulmonary embolism post embolectomy (possible saddle per pt description) History of GI bleed Slow bleed per pt report, [place] 04/2024 Hx of iron deficiency s/p iron infusions per Dr. Zuniga, post Apr 2023 GI Bleed/[place] Hx of iron deficiency anemia Surgical History (Updated 01/04/24 @ 16:34 by Reyna Webster DO) History of embolectomy Bilateral pulmonary artery embolectomy due to provoked DVT S/P LUIZ (total abdominal hysterectomy) History of History of ERCP for Gallstones Hx of colonoscopy (~04/2023) Hx laparoscopic cholecystectomy Family History Maternal Grandfather Diabetes Maternal Grandmother Diabetes Mother Diabetes Social History Smoking/Tobacco Use Status: Never Smoking risk assessment performed?: Yes Alcohol Intake: never Drug use: Never Substance use type: does not use Household members: family Housing: apartment Number of Children: 2 number of grandchildren: 1 Communication Needs: Corrective Lenses Education Level: high school current occupation: [employer] in [place] What is your relationship status?: How often do you get together with friends or relatives?: three or more times per week Panel score (0-1 are the most socially isolated patients): 1 What type of physical activity do you participate in: none Working smoke detector in home: Yes Fire extinguisher in home: Yes Carbon monox detector in home: Yes Do you feel safe at home: Yes Do you feel safe in your relationship?: Yes Time Spent with Patient Time Spent with Patient: 45-69 minutes Time was spent: preparing to see the patient(eg.review tests), obtaining and/or reviewing separately otained hiistory, ordering medications,tests, procedures, referring, communicating with other health manager progressive care, indepentently interpreting results, counseling the patient, care coordination and other
--- NOTE | 2024-07-08 14:58 | PDOC.CMDIS ---
Date of service: 07/08/24 Time of Service: 14:58 LACE Index Scoring Tool Questions: Length of Stay (in days): 2 Was the patient admitted via the E.D.?: Yes E.D. Visits: 1 Answers: Total Score: 6 Risk of Readmission: Low Risk Care Management Discharge Plan Reason for Hospitalization: GIB. found to be C.diff positive Discharge Plan: Rahul is discharged home today with no new services. She was given prescriptions for antibiotics, probiotics and nausea meds. She will f/u with her community provider and f/u with Dr. Webster at an appointment made on Wednesday as the office is not open today. She will continue per her plan of care. Rahul will drive herself home. Patient/Family Education Needs: Review of discharge instructions, activity, limitations, and f/u plan. Discuss Ask me 3 SDOH Health Related Social Needs: No Data to Display
== END 2024-07-08 15:13 | disposition home or self-care (01) | DRG 371 ==
LOC: ER 15:50 → EDHOLD 16:07 → MS 07-07 16:44
PROVIDERS: Admitting Provider Surgery; Emergency Provider Physician Assistant; PCP Nurse Practitioner; Visit Provider Surgery
DX: A04.72 Enterocolitis due to Clostridium difficile, not specified as recurrent (principal); K57.31 Diverticulosis of large intestine without perforation or abscess with bleeding; D62 Acute posthemorrhagic anemia; K64.9 Unspecified hemorrhoids; Z86.711 Personal history of pulmonary embolism
CPT/HCPCS: 36415; 36430; 71275; 74177; 80048; 80053; 83690; 86850; 86900; 86901; 86920; 87493; 93005; 96365; 96375; 99285; 81003; 81015; 82728; 83735; 83880; 84484; 85014; 85018; 85025; 93010; J0744; J1756; J1836; J2270; J2405; J2470; J3490; P9016

== ENCOUNTER 2024-07-12 03:32 | Outpatient (CLI) | payer OTHER, SELFPAY ==
[2024-07-12 12:22] LABS: Abs Immature Grans 0.04 10^3/uL (0.0-0.06); Absolute Basophil Count 0.05 10^3/uL (0.0-0.2); Absolute Eosinophil Count 2.25 10^3/uL (0.0-0.7); Absolute Lymphocyte Count 1.68 10^3/uL (1.2-3.4); Absolute Monocyte Count 0.57 10^3/uL (0.1-0.8); Absolute Neutrophil Count 4.93 10^3/uL (1.2-6.7); Basophils % 0.5 %; HCT 30.9 % (36.0-46.0); HGB 8.7 g/dL (11.2-15.7); Immature Grans % 0.4 %; Lymphocytes % 17.6 %; MCH 24.2 pg (27.0-33.0); MCHC 28.2 % (32.0-36.0); MCV 86 fL (80-95); MPV 10.1 fL (8.0-11.0); Neutrophils % 51.9 %; Platelet Count 409 10^3/uL (130-400); RDW 17.8 % (11.7-14.6); RDW-SD 54.6 fL; WBC 9.52 10^3/uL (4.4-10.8)
[2024-07-12 12:59] LABS: Eosinophils % 23.6 %
[2024-07-12 13:04] LABS: Ferritin 85 ng/mL (8-252)
== END 2024-07-12 03:33 | disposition home or self-care (01) ==
LOC: LOS 03:32
PROVIDERS: PCP Nurse Practitioner; Visit Provider Surgery
DX: D62 Acute posthemorrhagic anemia (principal); Z09 Encounter for follow-up examination after completed treatment for conditions other than malignant neoplasm
CPT/HCPCS: 36415; 82728; 85025

== ENCOUNTER 2024-07-24 11:57 | Outpatient (CLI) | payer OTHER, SELFPAY ==
[2024-07-24 10:32] LABS: Abs Immature Grans 0.01 10^3/uL (0.0-0.06); Absolute Basophil Count 0.04 10^3/uL (0.0-0.2); Absolute Eosinophil Count 0.64 10^3/uL (0.0-0.7); Absolute Lymphocyte Count 1.54 10^3/uL (1.2-3.4); Absolute Monocyte Count 0.47 10^3/uL (0.1-0.8); Absolute Neutrophil Count 3.33 10^3/uL (1.2-6.7); Basophils % 0.7 %; Eosinophils % 10.6 %; HCT 28.6 % (36.0-46.0); Immature Grans % 0.2 %; Lymphocytes % 25.5 %; MCH 23.6 pg (27.0-33.0); MCV 82 fL (80-95); MPV 9.3 fL (8.0-11.0); Monocytes % 7.8 %; Neutrophils % 55.2 %; Platelet Count 322 10^3/uL (130-400); RBC 3.51 10^6/uL (3.93-5.22); RDW 16.8 % (11.7-14.6); RDW-SD 49.9 fL; WBC 6.03 10^3/uL (4.4-10.8)
[2024-07-24 10:40] LABS: HGB 8.3 g/dL (11.2-15.7)
[2024-07-24 11:06] LABS: Ferritin 27 ng/mL (8-252)
[2024-07-24 11:07] LABS: C-Reactive Protein < 0.50 mg/dL (<or=0.5)
== END 2024-07-24 11:58 | disposition home or self-care (01) ==
LOC: LBO 11:57
PROVIDERS: PCP Nurse Practitioner; Visit Provider Surgery
DX: K60.0 Acute anal fissure (principal); K92.2 Gastrointestinal hemorrhage, unspecified; K57.90 Diverticulosis of intestine, part unspecified, without perforation or abscess without bleeding; D50.9 Iron deficiency anemia, unspecified; D62 Acute posthemorrhagic anemia; A04.72 Enterocolitis due to Clostridium difficile, not specified as recurrent; R19.7 Diarrhea, unspecified; K57.31 Diverticulosis of large intestine without perforation or abscess with bleeding
CPT/HCPCS: 36415; 82728; 85025; 86140

== ENCOUNTER 2024-07-27 02:54 | Outpatient (RCR) | payer OTHER, SELFPAY ==
[2024-07-27] MEDS: Normal Saline Flush 10 ML SYR IVP (08:58)
[2024-07-27] MEDS: Acetaminophen 325 MG TAB 650 MG PO (08:58)
[2024-07-27] MEDS: diphenhydrAMINE 25 MG CAP PO (08:58)
[2024-07-27 09:12] LABS: Abs Immature Grans 0.02 10^3/uL (0.0-0.06); Absolute Basophil Count 0.03 10^3/uL (0.0-0.2); Absolute Eosinophil Count 0.78 10^3/uL (0.0-0.7); Absolute Lymphocyte Count 1.99 10^3/uL (1.2-3.4); Absolute Monocyte Count 0.54 10^3/uL (0.1-0.8); Absolute Neutrophil Count 3.55 10^3/uL (1.2-6.7); Basophils % 0.4 %; Eosinophils % 11.3 %; HCT 31.1 % (36.0-46.0); HGB 9.2 g/dL (11.2-15.7); Immature Grans % 0.3 %; Lymphocytes % 28.8 %; MCH 23.8 pg (27.0-33.0); MCHC 29.6 % (32.0-36.0); MCV 80 fL (80-95); MPV 10.2 fL (8.0-11.0); Monocytes % 7.8 %; Neutrophils % 51.4 %; Platelet Count 316 10^3/uL (130-400); RBC 3.87 10^6/uL (3.93-5.22); RDW 16.9 % (11.7-14.6); RDW-SD 49.5 fL; WBC 6.91 10^3/uL (4.4-10.8)
[2024-07-27] MEDS: IRON SUCROSE COMPLEX 200 MG in Normal Saline 100 ML 440 MG IVPB (10:24)
[2024-07-27 10:50] VITALS: BP 106/70; PULSE 76; RESP 16; TEMP 37.1; O2SAT 98
[2024-07-27 11:05] VITALS: BP 110/68; PULSE 68; RESP 16; TEMP 37.1; O2SAT 98
[2024-07-27 11:20] VITALS: BP 99/62; PULSE 78; RESP 16; TEMP 37.1; O2SAT 98
[2024-07-27 11:50] VITALS: BP 104/68; PULSE 75; RESP 16; TEMP 36.9; O2SAT 98
[2024-07-27 12:20] VITALS: BP 104/64; PULSE 78; RESP 16; TEMP 37; O2SAT 98
== END 2024-08-05 23:59 | disposition home or self-care (01) ==
LOC: INF 02:54
PROVIDERS: PCP Nurse Practitioner; Visit Provider Surgery
DX: D50.9 Iron deficiency anemia, unspecified; A49.8 Other bacterial infections of unspecified site; K57.91 Diverticulosis of intestine, part unspecified, without perforation or abscess with bleeding
CPT/HCPCS: 36415; 36430; 86850; 86900; 86901; 86920; 96365; 96374; 85025; J1756; P9016

== ENCOUNTER 2024-08-02 13:43 | Outpatient (REF) | payer OTHER, SELFPAY ==
[2024-08-02 13:53] LABS: C Diff PCR Positive (Negative)
== END 2024-08-02 13:44 | disposition home or self-care (01) ==
LOC: LBN 13:43
PROVIDERS: PCP Nurse Practitioner; Visit Provider Surgery
DX: R19.7 Diarrhea, unspecified (principal)
CPT/HCPCS: 87493

== ENCOUNTER 2024-08-15 13:52 | Outpatient (CLI) | payer OTHER, SELFPAY ==
[2024-08-15 13:09] LABS: Abs Immature Grans 0.03 10^3/uL (0.0-0.06); Absolute Basophil Count 0.04 10^3/uL (0.0-0.2); Absolute Eosinophil Count 0.18 10^3/uL (0.0-0.7); Absolute Lymphocyte Count 1.46 10^3/uL (1.2-3.4); Absolute Monocyte Count 0.57 10^3/uL (0.1-0.8); Absolute Neutrophil Count 5.57 10^3/uL (1.2-6.7); Basophils % 0.5 %; Eosinophils % 2.3 %; HGB 8.4 g/dL (11.2-15.7); Immature Grans % 0.4 %; Lymphocytes % 18.6 %; MCV 82 fL (80-95); MPV 9.9 fL (8.0-11.0); Monocytes % 7.3 %; Neutrophils % 70.9 %; Nucleated RBC 0.3 % (0.0-0.3); Platelet Count 277 10^3/uL (130-400); RBC 3.65 10^6/uL (3.93-5.22); RDW 18.9 % (11.7-14.6); RDW-SD 55.3 fL; WBC 7.85 10^3/uL (4.4-10.8)
[2024-08-15 13:32] LABS: Ferritin 122 ng/mL (8-252)
[2024-08-15 13:50] LABS: Anisocytosis 1+; Diff Comment RBC Morph Reviewed; Hypochromasia 1+; Microcytosis 1+; Poikilocytes 1+; Polychromasia Present
== END 2024-08-15 13:53 | disposition home or self-care (01) ==
LOC: LBO 13:52
PROVIDERS: PCP Nurse Practitioner; Visit Provider Surgery
DX: C50.919 Malignant neoplasm of unspecified site of unspecified female breast (principal); D50.9 Iron deficiency anemia, unspecified; D62 Acute posthemorrhagic anemia; D50.8 Other iron deficiency anemias; K92.2 Gastrointestinal hemorrhage, unspecified
CPT/HCPCS: 36415; 82728; 85025

== ENCOUNTER 2024-08-22 09:45 | Outpatient (CLI) | payer OTHER, SELFPAY ==
[2024-08-22 10:35] LABS: Abs Immature Grans 0.02 10^3/uL (0.0-0.06); Absolute Basophil Count 0.03 10^3/uL (0.0-0.2); Absolute Lymphocyte Count 1.21 10^3/uL (1.2-3.4); Basophils % 0.5 %; Eosinophils % 3.5 %; HCT 32.3 % (36.0-46.0); HGB 9.3 g/dL (11.2-15.7); Immature Grans % 0.4 %; Lymphocytes % 21.4 %; MCH 22.7 pg (27.0-33.0); MCHC 28.8 % (32.0-36.0); MCV 79 fL (80-95); MPV 10.6 fL (8.0-11.0); Monocytes % 8.8 %; Neutrophils % 65.4 %; Platelet Count 272 10^3/uL (130-400); RBC 4.09 10^6/uL (3.93-5.22); RDW 17.7 % (11.7-14.6); RDW-SD 50.3 fL; WBC 5.66 10^3/uL (4.4-10.8)
[2024-08-22 11:07] LABS: Albumin 3.5 g/dL (3.4-5.0); Ferritin 93 ng/mL (8-252)
== END 2024-08-22 09:46 | disposition home or self-care (01) ==
LOC: LBO 09:45
PROVIDERS: PCP Nurse Practitioner; Visit Provider Surgery
DX: K64.9 Unspecified hemorrhoids (principal); K92.2 Gastrointestinal hemorrhage, unspecified; K57.90 Diverticulosis of intestine, part unspecified, without perforation or abscess without bleeding; K57.31 Diverticulosis of large intestine without perforation or abscess with bleeding; K60.0 Acute anal fissure; D50.9 Iron deficiency anemia, unspecified; D62 Acute posthemorrhagic anemia; D50.8 Other iron deficiency anemias; A04.72 Enterocolitis due to Clostridium difficile, not specified as recurrent; Z86.14 Personal history of Methicillin resistant Staphylococcus aureus infection; A49.8 Other bacterial infections of unspecified site; Z86.718 Personal history of other venous thrombosis and embolism
CPT/HCPCS: 36415; 86850; 86900; 86901; 82040; 82728; 85025

== ENCOUNTER 2024-08-31 16:22 | Outpatient (CLI) | payer OTHER, SELFPAY ==
[2024-08-31 15:22] LABS: Abs Immature Grans 0.02 10^3/uL (0.0-0.06); Absolute Basophil Count 0.06 10^3/uL (0.0-0.2); Absolute Eosinophil Count 0.21 10^3/uL (0.0-0.7); Absolute Lymphocyte Count 1.76 10^3/uL (1.2-3.4); Absolute Monocyte Count 0.47 10^3/uL (0.1-0.8); Absolute Neutrophil Count 3.71 10^3/uL (1.2-6.7); Eosinophils % 3.4 %; HCT 32.8 % (36.0-46.0); HGB 9.4 g/dL (11.2-15.7); Immature Grans % 0.3 %; Lymphocytes % 28.3 %; MCH 22.1 pg (27.0-33.0); MCHC 28.7 % (32.0-36.0); MCV 77 fL (80-95); MPV 9.7 fL (8.0-11.0); Monocytes % 7.5 %; Neutrophils % 59.5 %; Platelet Count 363 10^3/uL (130-400); RBC 4.26 10^6/uL (3.93-5.22); RDW-SD 50.3 fL; WBC 6.23 10^3/uL (4.4-10.8)
[2024-08-31 15:53] LABS: Ferritin 41 ng/mL (8-252)
== END 2024-08-31 16:23 | disposition home or self-care (01) ==
LOC: LBO 16:22
PROVIDERS: PCP Nurse Practitioner; Referring Provider Surgery; Visit Provider Surgery
DX: K64.9 Unspecified hemorrhoids (principal); K92.2 Gastrointestinal hemorrhage, unspecified; K57.90 Diverticulosis of intestine, part unspecified, without perforation or abscess without bleeding; K57.31 Diverticulosis of large intestine without perforation or abscess with bleeding; K60.0 Acute anal fissure; D50.9 Iron deficiency anemia, unspecified; D62 Acute posthemorrhagic anemia; D50.8 Other iron deficiency anemias; A04.72 Enterocolitis due to Clostridium difficile, not specified as recurrent; Z86.14 Personal history of Methicillin resistant Staphylococcus aureus infection; A49.8 Other bacterial infections of unspecified site
CPT/HCPCS: 36415; 82728; 85025

== ENCOUNTER 2024-09-08 14:45 | Outpatient (CLI) | payer BC, SELFPAY ==
[2024-09-08 15:16] LABS: HCT 32.7 % (36.0-46.0); HGB 9.4 g/dL (11.2-15.7); MCH 21.5 pg (27.0-33.0); MCHC 28.7 % (32.0-36.0); MCV 75 fL (80-95); MPV 10.5 fL (8.0-11.0); Platelet Count 244 10^3/uL (130-400); RBC 4.38 10^6/uL (3.93-5.22); RDW 18.1 % (11.7-14.6); RDW-SD 49.1 fL; WBC 7.35 10^3/uL (4.4-10.8)
== END 2024-09-08 14:46 | disposition home or self-care (01) ==
LOC: LBO 14:45
PROVIDERS: PCP Nurse Practitioner; Visit Provider Nurse Practitioner Family
DX: D50.9 Iron deficiency anemia, unspecified (principal); D62 Acute posthemorrhagic anemia
CPT/HCPCS: 36415; 85027

== ENCOUNTER 2024-10-02 02:15 | Outpatient (RCR) | payer BC, SELFPAY ==
[2024-08-06 00:17] VITALS: BP 104/64; PULSE 78; RESP 16; TEMP 37
[2024-09-11] MEDS: Normal Saline Flush 10 ML SYR IVP (08:38)
[2024-09-11] MEDS: IRON SUCROSE COMPLEX 200 MG in Normal Saline 100 ML 440 MG IVPB (09:18)
[2024-09-18] MEDS: IRON SUCROSE COMPLEX 200 MG in Normal Saline 100 ML 440 MG IVPB (09:01)
[2024-09-18] MEDS: Normal Saline Flush 10 ML SYR IVP (09:01)
[2024-09-25] MEDS: IRON SUCROSE COMPLEX 200 MG in Normal Saline 100 ML 440 MG IVPB (09:57)
[2024-09-25] MEDS: Normal Saline Flush 10 ML SYR IVP (09:57)
[2024-10-02] MEDS: IRON SUCROSE COMPLEX 300 MG in Normal Saline 250 ML 176.667 MG IVPB (09:10)
[2024-10-02] MEDS: Normal Saline Flush 10 ML SYR IVP (09:11)
== END 2024-10-06 23:59 | disposition home or self-care (01) ==
LOC: INF 02:15
PROVIDERS: PCP Nurse Practitioner; Visit Provider Surgery
DX: D50.9 Iron deficiency anemia, unspecified (principal); D62 Acute posthemorrhagic anemia
CPT/HCPCS: 96365; 96366; J1756

== ENCOUNTER 2024-11-02 02:57 | Outpatient (CLI) | payer BC, SELFPAY ==
[2024-11-02 07:38] LABS: Abs Immature Grans 0.01 10^3/uL (0.0-0.06); Absolute Basophil Count 0.05 10^3/uL (0.0-0.2); Absolute Eosinophil Count 0.27 10^3/uL (0.0-0.7); Absolute Lymphocyte Count 2.08 10^3/uL (1.2-3.4); Absolute Monocyte Count 0.57 10^3/uL (0.1-0.8); Absolute Neutrophil Count 3.28 10^3/uL (1.2-6.7); Basophils % 0.8 %; Eosinophils % 4.3 %; HCT 39.7 % (36.0-46.0); HGB 11.7 g/dL (11.2-15.7); Immature Grans % 0.2 %; Lymphocytes % 33.2 %; MCH 23.1 pg (27.0-33.0); MCHC 29.5 % (32.0-36.0); MCV 79 fL (80-95); MPV 9.5 fL (8.0-11.0); Monocytes % 9.1 %; Neutrophils % 52.4 %; Platelet Count 282 10^3/uL (130-400); RBC 5.06 10^6/uL (3.93-5.22); RDW 23.2 % (11.7-14.6); RDW-SD 65.1 fL; WBC 6.26 10^3/uL (4.4-10.8)
[2024-11-02 08:02] LABS: Anisocytosis 1+; Diff Comment RBC Morph Reviewed; Poikilocytes 1+
[2024-11-02 08:16] LABS: Ferritin 249 ng/mL (8-252)
[2024-11-02 08:43] LABS: Iron 43 ug/dL (50-170); Total Iron Binding Capacity 306 ug/dL (250-450); Transferrin Sat 14 % (15-50)
== END 2024-11-02 02:58 | disposition home or self-care (01) ==
PROVIDERS: PCP Nurse Practitioner; Visit Provider Nurse Practitioner Adult Health
DX: D50.0 Iron deficiency anemia secondary to blood loss (chronic) (principal)
CPT/HCPCS: 36415; 82728; 83540; 83550; 85025

== ENCOUNTER 2024-12-06 02:58 | Outpatient (CLI) | payer BC, SELFPAY ==
[2024-12-06 08:50] LABS: Abs Immature Grans 0.01 10^3/uL (0.0-0.06); Absolute Basophil Count 0.05 10^3/uL (0.0-0.2); Absolute Lymphocyte Count 1.99 10^3/uL (1.2-3.4); Absolute Neutrophil Count 3.59 10^3/uL (1.2-6.7); Basophils % 0.8 %; Eosinophils % 4.7 %; HGB 12.5 g/dL (11.2-15.7); Immature Grans % 0.2 %; Lymphocytes % 30.9 %; MCH 24.4 pg (27.0-33.0); MCHC 31.3 % (32.0-36.0); MCV 78 fL (80-95); MPV 9.5 fL (8.0-11.0); Monocytes % 7.8 %; Neutrophils % 55.6 %; Platelet Count 298 10^3/uL (130-400); RBC 5.13 10^6/uL (3.93-5.22); RDW 20.7 % (11.7-14.6); RDW-SD 58.6 fL; WBC 6.44 10^3/uL (4.4-10.8)
[2024-12-06 09:11] LABS: Anisocytosis 2+; Diff Comment RBC Morph Reviewed; Microcytosis 1+
[2024-12-06 10:05] LABS: Ferritin 123 ng/mL (8-252)
== END 2024-12-06 02:59 | disposition home or self-care (01) ==
PROVIDERS: PCP Nurse Practitioner; Visit Provider Internal Medicine Hematology & Oncology
DX: D50.0 Iron deficiency anemia secondary to blood loss (chronic) (principal)
CPT/HCPCS: 36415; 82728; 85025

== ENCOUNTER 2025-01-05 14:40 | Outpatient (CLI) | payer BC, SELFPAY ==
[2025-01-05 13:41] LABS: Abs Immature Grans 0.02 10^3/uL (0.0-0.06); Absolute Basophil Count 0.04 10^3/uL (0.0-0.2); Absolute Lymphocyte Count 1.59 10^3/uL (1.2-3.4); Absolute Monocyte Count 0.47 10^3/uL (0.1-0.8); Absolute Neutrophil Count 4.32 10^3/uL (1.2-6.7); Basophils % 0.6 %; Eosinophils % 4.5 %; HCT 42.4 % (36.0-46.0); HGB 13.2 g/dL (11.2-15.7); Immature Grans % 0.3 %; Lymphocytes % 23.6 %; MCH 25.2 pg (27.0-33.0); MCHC 31.1 % (32.0-36.0); MCV 81 fL (80-95); MPV 9.7 fL (8.0-11.0); Platelet Count 271 10^3/uL (130-400); RBC 5.24 10^6/uL (3.93-5.22); RDW 17.4 % (11.7-14.6); RDW-SD 51.1 fL; WBC 6.74 10^3/uL (4.4-10.8)
[2025-01-05 14:07] LABS: Ferritin 86 ng/mL (8-252)
== END 2025-01-05 14:41 | disposition home or self-care (01) ==
LOC: LBO 14:41
PROVIDERS: PCP Nurse Practitioner; Visit Provider Nurse Practitioner Family
DX: D50.0 Iron deficiency anemia secondary to blood loss (chronic) (principal)
CPT/HCPCS: 36415; 82728; 85025

== ENCOUNTER 2025-01-17 03:29 | Outpatient (CLI) | payer BC, SELFPAY ==
[2025-01-17 07:36] LABS: Abs Immature Grans 0.03 10^3/uL (0.0-0.06); Absolute Basophil Count 0.03 10^3/uL (0.0-0.2); Absolute Eosinophil Count 0.41 10^3/uL (0.0-0.7); Absolute Lymphocyte Count 0.82 10^3/uL (1.2-3.4); Absolute Monocyte Count 0.55 10^3/uL (0.1-0.8); Absolute Neutrophil Count 7.85 10^3/uL (1.2-6.7); Basophils % 0.3 %; Eosinophils % 4.2 %; HGB 12.6 g/dL (11.2-15.7); Immature Grans % 0.3 %; Lymphocytes % 8.5 %; MCH 25.4 pg (27.0-33.0); MCHC 31.5 % (32.0-36.0); MCV 81 fL (80-95); MPV 9.7 fL (8.0-11.0); Monocytes % 5.7 %; Platelet Count 240 10^3/uL (130-400); RBC 4.96 10^6/uL (3.93-5.22); RDW 17.2 % (11.7-14.6); RDW-SD 49.1 fL; WBC 9.69 10^3/uL (4.4-10.8)
[2025-01-17 08:05] LABS: Ferritin 77 ng/mL (8-252)
== END 2025-01-17 03:30 | disposition home or self-care (01) ==
LOC: LBO 03:29
PROVIDERS: PCP Nurse Practitioner; Visit Provider Nurse Practitioner Family
DX: D50.0 Iron deficiency anemia secondary to blood loss (chronic) (principal)
CPT/HCPCS: 36415; 82728; 85025

== ENCOUNTER 2025-02-07 02:36 | Outpatient (CLI) | payer BC, SELFPAY ==
[2025-02-07 07:52] LABS: Abs Immature Grans 0.01 10^3/uL (0.0-0.06); Absolute Basophil Count 0.05 10^3/uL (0.0-0.2); Absolute Eosinophil Count 0.35 10^3/uL (0.0-0.7); Absolute Lymphocyte Count 2.49 10^3/uL (1.2-3.4); Absolute Monocyte Count 0.59 10^3/uL (0.1-0.8); Absolute Neutrophil Count 3.13 10^3/uL (1.2-6.7); Basophils % 0.8 %; Eosinophils % 5.3 %; HCT 37.3 % (36.0-46.0); HGB 11.6 g/dL (11.2-15.7); Immature Grans % 0.2 %; Lymphocytes % 37.6 %; MCH 25.7 pg (27.0-33.0); MCHC 31.1 % (32.0-36.0); MCV 83 fL (80-95); MPV 9.8 fL (8.0-11.0); Monocytes % 8.9 %; Neutrophils % 47.2 %; Platelet Count 333 10^3/uL (130-400); RBC 4.52 10^6/uL (3.93-5.22); RDW 17.1 % (11.7-14.6); RDW-SD 50.5 fL; WBC 6.62 10^3/uL (4.4-10.8)
[2025-02-07 08:35] LABS: Ferritin 71 ng/mL (8-252)
== END 2025-02-07 02:37 | disposition home or self-care (01) ==
PROVIDERS: PCP Nurse Practitioner Family; Visit Provider Nurse Practitioner Family
DX: D50.0 Iron deficiency anemia secondary to blood loss (chronic) (principal)
CPT/HCPCS: 36415; 82728; 85025

== ENCOUNTER 2025-02-20 03:32 | Outpatient (CLI) | payer BC, SELFPAY ==
[2025-02-20 13:16] LABS: Abs Immature Grans 0.02 10^3/uL (0.0-0.06); Absolute Basophil Count 0.04 10^3/uL (0.0-0.2); Absolute Eosinophil Count 0.36 10^3/uL (0.0-0.7); Absolute Lymphocyte Count 1.89 10^3/uL (1.2-3.4); Absolute Monocyte Count 0.44 10^3/uL (0.1-0.8); Absolute Neutrophil Count 3.87 10^3/uL (1.2-6.7); Basophils % 0.6 %; Eosinophils % 5.4 %; HCT 37.7 % (36.0-46.0); HGB 11.5 g/dL (11.2-15.7); Immature Grans % 0.3 %; Lymphocytes % 28.5 %; MCH 25.3 pg (27.0-33.0); MCHC 30.5 % (32.0-36.0); MCV 83 fL (80-95); MPV 9.6 fL (8.0-11.0); Monocytes % 6.6 %; Neutrophils % 58.6 %; Platelet Count 326 10^3/uL (130-400); RBC 4.54 10^6/uL (3.93-5.22); RDW 16.8 % (11.7-14.6); RDW-SD 50.4 fL; WBC 6.62 10^3/uL (4.4-10.8)
[2025-02-20 14:00] LABS: Ferritin 35 ng/mL (8-252)
== END 2025-02-20 03:33 | disposition home or self-care (01) ==
LOC: LBO 03:32
PROVIDERS: PCP Nurse Practitioner Family; Visit Provider Nurse Practitioner Family
DX: D50.0 Iron deficiency anemia secondary to blood loss (chronic) (principal)
CPT/HCPCS: 36415; 82728; 85025

== ENCOUNTER 2025-04-05 02:38 | Outpatient (CLI) | payer BC, SELFPAY ==
[2025-04-05 07:40] LABS: Abs Immature Grans 0.01 10^3/uL (0.0-0.06); HCT 40.6 % (36.0-46.0); HGB 12.6 g/dL (11.2-15.7); Immature Grans % 0.2 %; MCH 26.1 pg (27.0-33.0); MCHC 31.0 % (32.0-36.0); MCV 84 fL (80-95); MPV 10.5 fL (8.0-11.0); Platelet Count 289 10^3/uL (130-400); RBC 4.82 10^6/uL (3.93-5.22); RDW 15.9 % (11.7-14.6); RDW-SD 49.0 fL; WBC 6.05 10^3/uL (4.4-10.8)
[2025-04-05 08:09] LABS: Ferritin 159 ng/mL (8-252)
== END 2025-04-05 02:39 | disposition home or self-care (01) ==
PROVIDERS: PCP Nurse Practitioner Family; Visit Provider Nurse Practitioner Family
DX: D50.0 Iron deficiency anemia secondary to blood loss (chronic) (principal)
CPT/HCPCS: 36415; 82728; 85025

== ENCOUNTER 2025-05-23 02:05 | Outpatient (CLI) | payer MEDICAID, SELFPAY ==
[2025-05-23 07:55] LABS: Abs Immature Grans 0.02 10^3/uL (0.0-0.06); HCT 37.1 % (36.0-46.0); HGB 11.3 g/dL (11.2-15.7); Immature Grans % 0.3 %; MCH 25.2 pg (27.0-33.0); MCHC 30.5 % (32.0-36.0); MCV 83 fL (80-95); MPV 10.5 fL (8.0-11.0); Platelet Count 246 10^3/uL (130-400); RBC 4.48 10^6/uL (3.93-5.22); RDW 15.1 % (11.7-14.6); RDW-SD 45.7 fL; WBC 6.58 10^3/uL (4.4-10.8)
[2025-05-23 08:22] LABS: Ferritin 52 ng/mL (8-252)
== END 2025-05-23 02:06 | disposition home or self-care (01) ==
PROVIDERS: PCP Nurse Practitioner Family; Visit Provider Nurse Practitioner Family
DX: D50.0 Iron deficiency anemia secondary to blood loss (chronic) (principal)
CPT/HCPCS: 36415; 82728; 85025

== ENCOUNTER 2025-06-26 00:08 | Outpatient (CLI) | payer MEDICAID, SELFPAY ==
[2025-06-26 11:46] LABS: Abs Immature Grans 0.01 10^3/uL (0.0-0.06); HCT 34.4 % (36.0-46.0); HGB 10.7 g/dL (11.2-15.7); Immature Grans % 0.2 %; MCH 26.1 pg (27.0-33.0); MCHC 31.1 % (32.0-36.0); MCV 84 fL (80-95); MPV 10.4 fL (8.0-11.0); Platelet Count 258 10^3/uL (130-400); RBC 4.10 10^6/uL (3.93-5.22); RDW 16.8 % (11.7-14.6); RDW-SD 52.1 fL; WBC 5.23 10^3/uL (4.4-10.8)
[2025-06-26 12:29] LABS: Ferritin 174 ng/mL (8-252)
== END 2025-06-26 00:09 | disposition home or self-care (01) ==
PROVIDERS: PCP Nurse Practitioner Family; Visit Provider Nurse Practitioner Family
DX: D50.0 Iron deficiency anemia secondary to blood loss (chronic) (principal)
CPT/HCPCS: 36415; 82728; 85025

== ENCOUNTER → 2025-07-09 02:17 | Outpatient (CLI) | payer MEDICAID, SELFPAY ==
--- NOTE | 2025-07-09 07:45 | DI.MAMMO_ITS ---
Exam(s) MAMMO SCREENING EXAM: MAMMO SCREENING CLINICAL HISTORY: screening Z12.31 TECHNIQUE: Bilateral full field digital CC and MLO mammographic images were obtained with 3D tomosynthesis and utilizing computer aided detection (CAD). COMPARISON: Comparison is made with prior examinations. FINDINGS: Masses/Architectural Distortion: No suspicious masses or areas of architectural distortion are present. The nodular density in the medial right breast is stable. Microcalcifications: No suspicious pleomorphic-type are seen. Skin Thickening/Nipple Retraction: None. IMPRESSION: 1. No significant interval change with no specific features of malignancy noted. 2. Unless there is more urgent need, screening mammography is recommended, as per [employer] guidelines. BI-RADS Category 2 - Benign Findings Breast Density - Category B - There are scattered areas of fibroglandular density. Breast density Category C or D implies that the patient has dense breast tissue. Dense breast tissue can make it harder to find cancer on a mammogram. Dense breast tissue is also associated with an increased risk of breast cancer. This information about the result of the mammogram report was provided to the patient to raise their awareness. Use this report when you speak with the patient about their risks for breast cancer, which includes their family history. At that time, you may recommend additional screening tests (Ultrasound or MRI) as these tests may add significant information. A negative radiographic report should not delay biopsy if a dominant or clinically suspicious mass is present. Up to ten percent of cancers are not identified on mammography. A negative report may reinforce clinical impression. Adenosis and dense breasts may obscure an underlying neoplasm. False positive reports average 6 to 10%. Patient will receive a letter notifying them of these results.
== END ==
LOC: DI 02:17
PROVIDERS: PCP Nurse Practitioner Family; Visit Provider Nurse Practitioner Family
DX: Z12.31 Encounter for screening mammogram for malignant neoplasm of breast (principal)
CPT/HCPCS: 77063; 77067

== ENCOUNTER 2025-08-17 01:40 | Outpatient (CLI) | payer MEDICAID, SELFPAY ==
[2025-08-17 11:02] LABS: Abs Immature Grans 0.03 10^3/uL (0.0-0.06); HCT 35.2 % (36.0-46.0); HGB 10.6 g/dL (11.2-15.7); Immature Grans % 0.4 %; MCH 24.3 pg (27.0-33.0); MCHC 30.1 % (32.0-36.0); MCV 81 fL (80-95); MPV 9.9 fL (8.0-11.0); Platelet Count 311 10^3/uL (130-400); RBC 4.37 10^6/uL (3.93-5.22); RDW 16.4 % (11.7-14.6); RDW-SD 48.2 fL; WBC 7.60 10^3/uL (4.4-10.8)
[2025-08-17 11:23] LABS: Ferritin 20 ng/mL (7-271)
== END 2025-08-17 01:41 | disposition home or self-care (01) ==
PROVIDERS: PCP Nurse Practitioner Family; Visit Provider Nurse Practitioner Family
DX: D50.0 Iron deficiency anemia secondary to blood loss (chronic) (principal)
CPT/HCPCS: 36415; 82728; 85025